=== PATIENT | female | born 1940 | race Caucasian/White ===

== ENCOUNTER → 2017-05-28 16:25 | Outpatient (CLI) | payer MEDICARE, OTHER, SELFPAY ==
[2017-05-28 17:32] LABS: Absolute Lymphocyte Count 2.06 X10^3/ul (0.83-4.51); Absolute Neutrophil Count 4.9 X10^3/uL (2.0-7.7); Basophil# 0.04 X10^3/uL; Basophil% 0.5 % (0-1); Eosinophil# 0.17 X10^3/uL; Eosinophils% 2.2 % (0-5); Hematocrit 26.4 % (37-47); Hemoglobin 8.1 g/dl (12.0-15.0); Lymphocyte # 2.06 X10^3/ul (4.0); Lymphocyte % 26.4 % (19-41); Mean Corp Hgb Conc 30.7 g/gl (32-36); Mean Corpuscular Hgb 24.4 pg (27.0-32.0); Mean Corpuscular Volume 79.5 fL (81-99); Mean Platelet Vol. 10.4 fl (6.2-12.0); Monocyte# 0.61 X10^3/uL; Monocyte% 7.8 % (0-10); Neutrophil # 4.88 X10^3/uL (2.7-7.7); Neutrophil % 62.6 % (47-70); Platelet Count 438 K/mm3 (150-450); RBC Distribution Width CV 15.1 % (11.6-14.6); RBC Distribution Width SD 42.2 fl (35.1-43.9); Red Blood Count 3.32 M/mm3 (4.2-5.4); White Blood Count 7.8 K/mm3 (4.4-11.0)
[2017-05-28 17:39] LABS: POSITIVE COUNT NO; POSITIVE DIFFERENTIAL NO; POSITIVE MORPHOLOGY NO
[2017-05-28 18:23] LABS: Albumin, Serum 3.9 g/dL (3.2-5.0); BUN 10 mg/dL (7-18); BUN/Creat Ratio 13.3 RATIO (10-20); Creatinine, Serum 0.75 mg/dL (0.55-1.02); EST Glomerular Filtration Rate 80 mL/min (>60); Est Glom Filt Rate - Afr Amer 97 mL/min (>60); Glucose 117 mg/dL (74-106)
[2017-05-28 18:24] LABS: AST(SGOT) 16 U/L (15-37); Alanine Aminotransfer ALT/SGPT 25 U/L (13-56); Alkaline Phosphatase 81 U/L (45-117); Anion Gap 12 (5-15); Calcium,Total 8.8 mg/dL (8.5-10.1); Chloride 103 mmol/L (98-107); Globulin 4.1 g/dL (2.2-4.2); Sodium Level 137 mmol/L (136-145); Thyroid Stim Hormone (TSH) 1.98 uIU/mL (0.358-3.74)
[2017-05-28 21:16] LABS: Vitamin D,25 Hydroxy 8.6 ng/mL (19.95-100.01)
== END ==
PROVIDERS: Visit Provider Family Medicine Geriatric Medicine
DX: I10 Essential (primary) hypertension (principal); E55.9 Vitamin D deficiency, unspecified
CPT/HCPCS: 36415; 80053; 82306; 84443; 85025

== ENCOUNTER 2017-06-06 11:27 | Observation (INO) | payer MEDICARE, OTHER, SELFPAY ==
[2017-06-06] VITALS (16 sets, daily range): BP systolic 127–163; BP diastolic 68–85; PULSE 72–86; RESP 16–18; TEMP 36.7–36.9; O2SAT 97–100; BMI 27.2
--- NOTE | 2017-06-06 11:50 | EKG12_ITS ---
Test Reason : CHEST PAIN/SOB Blood Pressure : / mmHG Vent. Rate : 077 BPM Atrial Rate : 077 BPM P-R Int : 156 ms QRS Dur : 088 ms QT Int : 410 ms P-R-T Axes : -01 019 040 degrees QTc Int : 463 ms Normal sinus rhythm Normal ECG Confirmed by RORY ALVARENGA, DEMETRA ([id number]), editorial director SIMI RIOS ([id number] on 06/08/2017 1:14:57 PM Referred By: DARRYL Confirmed By:DEMETRA VALADEZ MD
--- NOTE | 2017-06-06 12:00 | RAD_ITS ---
STUDY: X-RAY CHEST REASON FOR EXAM: Female, 76 years old. Chest pain and shortness breath. TECHNIQUE: Single AP portable view of the chest. COMPARISON: 01/11/2017. FINDINGS: The lungs are hyperexpanded. There are coarsened interstitial markings suggestive of mild chronic fibrosis. Elevated left hemidiaphragm related to scarring, stable. No gross focal infiltrates. No gross effusions. Normal size heart. Normal mediastinum and lourdes. Normal visualized pulmonary arteries. Normal visualized aortic arch and descending thoracic aorta. Large hiatal hernia. Normal visualized thoracic spine. Normal visualized ribs, clavicles, and shoulders. There is no demonstrated abnormality of the visualized soft tissue structures of the upper abdomen. RAD/Chest 1 View (Portable) IMPRESSION: No change and no acute chest disease. Electronically Signed: Rhys Riley MD at 12:41 EST , Service support ,
[2017-06-06 12:19] LABS: Absolute Neutrophil Count 7.5 X10^3/uL (2.0-7.7); Basophil# 0.06 X10^3/uL; Basophil% 0.6 % (0-1); Eosinophil# 0.06 X10^3/uL; Eosinophils% 0.6 % (0-5); Hematocrit 25.3 % (37-47); Hemoglobin 7.7 g/dl (12.0-15.0); Lymphocyte % 15.9 % (19-41); Mean Corp Hgb Conc 30.4 g/gl (32-36); Mean Corpuscular Hgb 23.4 pg (27.0-32.0); Mean Corpuscular Volume 76.9 fL (81-99); Mean Platelet Vol. 9.1 fl (6.2-12.0); Monocyte# 0.76 X10^3/uL; Monocyte% 7.6 % (0-10); Neutrophil # 7.54 X10^3/uL (2.7-7.7); Neutrophil % 74.9 % (47-70); Platelet Count 630 K/mm3 (150-450); RBC Distribution Width CV 16.1 % (11.6-14.6); RBC Distribution Width SD 43.4 fl (35.1-43.9); Red Blood Count 3.29 M/mm3 (4.2-5.4); White Blood Count 10.1 K/mm3 (4.4-11.0)
[2017-06-06 12:21] LABS: POSITIVE COUNT NO; POSITIVE DIFFERENTIAL NO; POSITIVE MORPHOLOGY NO
[2017-06-06 12:35] LABS: Anion Gap 13 (5-15); BUN 22 mg/dL (7-18); BUN/Creat Ratio 29.5 RATIO (10-20); Calcium,Total 8.9 mg/dL (8.5-10.1); Chloride 102 mmol/L (98-107); Creatinine, Serum 0.75 mg/dL (0.55-1.02); EST Glomerular Filtration Rate 81 mL/min (>60); Est Glom Filt Rate - Afr Amer 97 mL/min (>60); Estimated Creatinine Clearance 37.24 ml/min; Glucose 143 mg/dL (74-106); Potassium 3.5 mmol/L (3.5-5.1); Sodium Level 138 mmol/L (136-145)
[2017-06-06] MEDS: 0.9% Normal Saline 1,000 ML 150 ML IV (12:35)
[2017-06-06] MEDS: oxyCODONE 5 MG Tablet PO ×2 (12:53→20:48)
--- NOTE | 2017-06-06 16:04 | ED.VISSUMM ---
- ER Visit Summary Date of Service: 06/06/17 Chief Complaint: Chest pain and shortness of breath History of Present Illness: The patient is a 76 F reports dyspnea on exertion for the past 4 days. She feels lightheaded and weak when she ambulates. Last evening she developed intermittent back, chest, and left arm pain. She does have a history of chronic lower back pain. Patient was given aspirin and nitroglycerin with EMS which did improve her symptoms. Patient also reports a history of recurrent anemia. She has had multiple scopes with no definitive source of blood loss. She has required intermittent blood transfusions. She states she will often get dyspnea on exertion when she is anemic. Physical Examination: Vital signs are unremarkable. Patient is in no acute distress and is nontoxic appearing. Head and neck examination is normal other than pallor. Heart is regular rate and rhythm. Palpable pulses are noted throughout. Lungs are clear with good air movement throughout. Abdomen is soft and nontender. Bowel sounds are noted. Test Results: EKG is sinus at 77 with no sign of acute ischemia. Portal chest x-ray shows no acute chest disease. CBC was normal white count with a hemoglobin of 7.7. Platelet count is elevated at 630,000. Chemistry studies reveal BUN 22. Troponin is less than 0.02. Emergency Department Course and Treatment: Patient reported improvement of her symptoms with nitro and aspirin prior to arrival. She did request her home dose of oxycodone for her low back pain. I spoke with Dr. Angulo, on-call for the patient's health information assistant. With no known definitive heart disease or lung problems, he stated that her transfusion threshold would likely be a hemoglobin of 7. Patient reports her last stress test was 3 years ago at [place]. At this time she will be discussed with hospitalist for admission. Treatment Plan: [] Disposition: Admit Impression: 1. Chest pain 2. Anemia 3. Dyspnea on exertion This note was generated with Picocent dictation software. It may contain incorrect words, spelling, and punctuation that were not noted in review of the chart prior to signing ED Disposition - Plan for ED Patient: Chief Complaint: Chest Pain Referrals: Dinh Hobson Chi, MD [Primary Care Provider] -
--- NOTE | 2017-06-06 16:07 | ED.DCSUM_ITS ---
- ER Visit Summary Date of Service: 06/06/17 Chief Complaint: Chest pain and shortness of breath History of Present Illness: The patient is a 76 F reports dyspnea on exertion for the past 4 days. She feels lightheaded and weak when she ambulates. Last evening she developed intermittent back, chest, and left arm pain. She does have a history of chronic lower back pain. Patient was given aspirin and nitroglycerin with EMS which did improve her symptoms. Patient also reports a history of recurrent anemia. She has had multiple scopes with no definitive source of blood loss. She has required intermittent blood transfusions. She states she will often get dyspnea on exertion when she is anemic. Physical Examination: Vital signs are unremarkable. Patient is in no acute distress and is nontoxic appearing. Head and neck examination is normal other than pallor. Heart is regular rate and rhythm. Palpable pulses are noted throughout. Lungs are clear with good air movement throughout. Abdomen is soft and nontender. Bowel sounds are noted. Test Results: EKG is sinus at 77 with no sign of acute ischemia. Portal chest x -ray shows no acute chest disease. CBC was normal white count with a hemoglobin of 7.7. Platelet count is elevated at 630,000. Chemistry studies reveal BUN 22. Troponin is less than 0.02. Emergency Department Course and Treatment: Patient reported improvement of her symptoms with nitro and aspirin prior to arrival. She did request her home dose of oxycodone for her low back pain. I spoke with Dr. Angulo, on-call for the patient's secret service agent. With no known definitive heart disease or lung problems, he stated that her transfusion threshold would likely be a hemoglobin of 7. Patient reports her last stress test was 3 years ago at [place]. At this time she will be discussed with hospitalist for admission. Treatment Plan: [] Disposition: Admit Impression: 1. Chest pain 2. Anemia 3. Dyspnea on exertion This note was generated with XRONet dictation software. It may contain incorrect words, spelling, and punctuation that were not noted in review of the chart prior to signing ED Disposition - Plan for ED Patient: Chief Complaint: Chest Pain Referrals: Dinh Hobson Chi, MD [Primary Care Provider] -
[2017-06-06] MEDS: 0.9% NaCl Peripheral Flush Adult/Peds IV (20:49)
[2017-06-06] MEDS: Heparin Injection 5,000 UNITS/ML Syringe 5000 UNITS SC (21:26)
[2017-06-06] MEDS: Metoprolol Tartrate 50 MG Tablet PO (21:27)
--- NOTE | 2017-06-06 21:29 | HP.PCM_ITS ---
Problem List (1) Chest pain Status: Acute Qualifiers: Chest pain type: precordial pain Qualified Code(s): R07.2 - Precordial pain (2) SOBOE (shortness of breath on exertion) Status: Acute History of Present Illness Date of Admission: 06/06/17 Chief Complaint: Chest pain, dyspnea on exertion The patient is a 76 year old F seen in the emergency room at [facility] with chief complaint of dyspnea on exertion since last Sunday and episodic chest pain, left arm pain, and mid back pain ?2 days. Patient states she has pain down her left arm which she describes as an ache, it lasted for several minutes and went away, nothing precipitated the discomfort, she also had brief periods of chest pain which was located in the precordial area and was described as a sharp brief pain that lasted approximately 20 seconds. Finally, patient complained of a burning sensation in her mid back area which lasted only for a few seconds. Patient states that she has had 3-4 episodes of the chest discomfort since yesterday. Nothing seems to precipitate the chest back or arm discomfort and nothing makes it better. Patient is seen Dr. Sophia mckeon last year for hypertension and was due to follow up with him this year, she has no history of coronary artery disease. Evaluation in the emergency room included an EKG which showed no evidence of ischemic changes, labs were remarkable for hemoglobin of 7.7, platelet count was elevated at 630, BUN was elevated at 22, the patient's chest x-ray showed no acute disease. Patient has a history of chronic anemia, she has been worked up with endoscopy including an EGD and colonoscopy without a definite etiology of the anemia. She has to undergo intermittent blood transfusions, the last one she states was 5-6 months ago. Patient will be placed in observation status on MedSurg, cardiac enzymes will be cycled, patient will have an echocardiogram performed, she will be given 3 units of packed red blood cells-cardiology feels that in order for the patient to have a stress test her hemoglobin should be above 10. Past Medical History Past Medical History (Chronic Problems): Chronic Problems Presence of IVC filter (Chronic) h/o DVT/PE History of GI bleed (Chronic) Anxiety (Chronic) GERD (gastroesophageal reflux disease) (Chronic) Hypertension (Chronic) Hyperglycemia (Chronic) no hx of DM Chronic back pain (Chronic) Hiatal hernia (Chronic) Polysubstance dependence (Chronic) Insomnia (Chronic) DVT (deep venous thrombosis) (Chronic) Pulmonary embolism (Chronic) Iron deficiency anemia (Chronic) Allergies sumatriptan [From Imitrex] Allergy (Verified 06/06/17 11:33) Chest tightness sumatriptan succinate [From Imitrex] Allergy (Verified 06/06/17 11:33) Chest tightness Home Medications: Ambulatory Orders Medication Instructions Recorded Aspirin [Aspirin, Baby] 81 mg PO DAILY@0800 06/12/16 Acetaminophen [Tylenol Tablet] 650 mg PO Q4H PRN PRN #0 tablet 06/28/16 Duloxetine HCl 60 mg PO BREAKFAST #30 01/12/17 Lorazepam [Ativan] 2 mg PO QHS #14 01/12/17 NIFEdipine [Procardia Xl] 30 mg PO DAILY #15 01/12/17 Metoprolol Tartrate [Lopressor 50 mg PO BID 06/06/17 (beta julieth)] Oxycodone HCl/Acetaminophen 1 tablet PO PRN PRN 06/06/17 [Percocet 5-325] Polyethylene Glycol 3350 [Miralax] 17 gm PO PRN PRN 06/06/17 Surgical History: appendectomy, cholecystectomy, - - back surgery w/ hardware, IVC filter placement. 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 BRIEFCASE SEWER History: No pertinent BRIEFCASE SEWER history Lives: Spouse/ Significant Other Smoking Status: Never smoker Tobacco Use: Non-smoker Alcohol: None Drugs: None - *Family History Maternal History Items: COPD, - - bladder cancer Paternal History Items: Stroke - at 92 Review of Systems Constitutional: Denies: Anorexia, Chills, Fever, Night Sweats, Malaise, Weakness , Weight Change, Fatigue Eyes: Denies: Blurred vision, Cataracts, Conjunctivae Inflammation, Double vision, Drainage HEENT: Denies: Difficulty Hearing, Difficulty Swallowing, Dysphasia, Ear Pain, Eye Pain, Head Aches, Hearing Changes, Nasal bleeding, Nasal Congestion, Post Nasal Drip Cardiovascular: Reports: Chest Pain. Denies: Claudication, Chest Pressure, Chest Tightness, Edema, Heaviness, Orthopnea, Palpitations, Paroxysmal Noc. Dyspnea, Syncope Respiratory: Reports: Shortness of Breath, Shortness of breath upon exertion. Denies: Cough, Hemoptysis, Pleuritic Pain, Shortness of breath at rest, Sputum production, Wheezing Gastrointestinal: Denies: Abdominal Pain, Constipation, Diarrhea, Hematemesis, Hematochezia, Nausea, Melena, Vomiting Genitourinary: Denies: Dysuria, Frequency, Hematuria, Hesitancy, Incontinence, Nocturia, Urgency Gynecological: Denies: Breast symptoms Musculoskeletal: Reports: Arm Pain - Left arm pain as noted in chief complaint. Denies: Foot Pain, Hand Pain, Joint Pain, Joint stiffness, Joint swelling, Joint Tenderness, Leg Pain Skin: Denies: Dryness, Jaundice, Pruritis, Rash Neurological: Denies: Balance problems, Blurred vision, Double vision, Change in Speech, Slurred speech, Difficulty swallowing, Focal weakness, Headaches, Incoordination, Numbness, Tingling Psychiatric: Reports: Anxiety, Depression. Denies: Homicidal Ideations, Suicidal Ideations Endocrine: Denies: Change in Body Habitus, Heat/ Cold Intolerance, Polydipsia, Polyuria Hematologic/ Lymphatic: Reports: Anemia, Hx of blood transfusion. Denies: Adenopathy, Easy Bruising, Easy Bleeding, Petechiae, Purpura VTE Information - Inpt Only VTE Present on Admission: No VTE Mechan Device Prophylaxis: None VTE Pharm Prophylaxis ordered?: Yes Patient Problems: Active and Suspected Problems Chest pain (Acute) - Physical Exam General: Alert, Oriented x3, Cooperative, No apparent distress, Well developed, Well nourished HEENT: Atraumatic, PERRLA, EOMI, Normocephalic Oral: Moist Mucosa Neck: Supple, No JVD, Negative Carotid Bruits, No Nuchal Rigidity, Trachea Midline, Thyroid Normal Size and Texture Lungs: Clear to auscultation, Normal air movement, No rhonchi, No wheeze, No rales Cardiovascular: Regular rate, Regular Rhythm, Normal S1, Normal S2, No murmurs, No Ectopic Activity, PMI Normal, No rub noted, No Gallop Abdomen: Bowel Sounds Present, Soft, Non Tender, Non-Distended, No hernias noted Extremities: No clubbing, No cyanosis, No edema, Capillary Refill Less than 3 Seconds Skin: No rashes, No breakdown Musculoskeletal: No Tenderness to Palpation of Joints or Extremities Neurological: Cranial nerves II-XII grossly intact, Neuro grossly intact, Muscle tone normal, Sensory exam intact to light touch and pain, Coordination normal Psych/Mental Status: Normal Affect, Appropriate, Alert and oriented to time, place, person, mood and affect Vital Signs Temp Pulse Resp BP Pulse Ox 98.2 F 78 16 154/74 H 98 06/06/17 21:08 06/06/17 21:08 06/06/17 21:08 06/06/17 21:08 06/06/17 21:08 Oxygen Delivery Method Room Air Weight: 67.6 kg Body Mass Index (BMI) 27.2 Intake and Output for Last 24 Hours 06/04/17 06/05/17 06/06/17 23:59 23:59 23:59 Intake Total 0 / 0 Balance 0 / 0 Laboratory Tests Past 24 Hrs 06/06/17 06/06/17 06/06/17 17:15 18:03 18:03 Troponin I < 0.02 Blood Type B POSITIVE Antibody Screen NEGATIVE Crossmatch See Detail See Detail 06/06/17 20:32 Troponin I Pending Blood Type Antibody Screen Crossmatch Assessment/Plan Active and Suspected Problems Chest pain (Acute) #1 chest pain-etiology unclear, patient will be placed in observation status on PCU, cardiac enzymes will be cycled, patient will have an echocardiogram performed, if enzymes are negative and the patient's hemoglobin is above 10 tomorrow morning, patient will undergo a resting pharmacological nuclear stress test. I do not feel cardiology needs to see patient at this time #2 dyspnea on exertion-possibly secondary to anemia-patient has a past history in her medical record of dyspnea on exertion #3 hypertension #4 anxiety disorder #5 depression #6 chronic anemia probably from undetected AVM-patient will be given 3 units of packed red blood cells and CBC will be rechecked, I do not feel diagnostic testing is necessary Code Visit OBSV E&M: 47817 Initial observation care L3
[2017-06-06] MEDS: LORazepam 1 MG Tablet 2 MG PO (21:31)
[2017-06-07] VITALS (17 sets, daily range): BP systolic 150–169; BP diastolic 73–100; PULSE 57–80; RESP 14–16; TEMP 36.7–37.1; O2SAT 97–100
--- NOTE | 2017-06-07 00:59 | NURSING ---
Addendum entered by Elena Fraser 06/07/17 01:26: Started transfusion of 2 out of 3 PRCs on 06/07/17 at 0050, unable to edit time of initial vital signs Original Note: Started transfusion of 2 out of 3 PRBCs aon 06/07/17 at 0048, unable to edit time of initial vital signs
[2017-06-07] MEDS: Acetaminophen 325 MG Tablet 650 MG PO (02:10)
[2017-06-07 04:46] LABS: Anion Gap 11 (5-15); BUN 26 mg/dL (7-18); BUN/Creat Ratio 44.1 RATIO (10-20); Calcium,Total 8.5 mg/dL (8.5-10.1); Chloride 105 mmol/L (98-107); Creatinine, Serum 0.59 mg/dL (0.55-1.02); EST Glomerular Filtration Rate 106 mL/min (>60); Est Glom Filt Rate - Afr Amer 128 mL/min (>60); Estimated Creatinine Clearance 39.04 ml/min; Glucose 100 mg/dL (74-106); Potassium 3.8 mmol/L (3.5-5.1); Sodium Level 140 mmol/L (136-145)
--- NOTE | 2017-06-07 05:55 | ECHOD_ITS ---
Reason For Study: Chest pain Procedure This was a 2D Doppler, Color Flow transthoracic echocardiogram. The exam was of adequate technical quality. Exam performed portable in patient room. Left Ventricle Normal LV size. Left ventricular systolic function is normal. The estimated ejection fraction is 60 %. Transmitral diastolic flow velocities suggest moderate (stage 2) diastolic dysfunction (pseudonormal pattern). No regional wall motion abnormalities noted. Right Ventricle Normal RV size. Normal systolic function. Atria The left atrium is moderately enlarged. Normal right atrium. No doppler evidence for ASD. Mitral Valve There is no mitral annular calcification. Normal mitral valve. Mild (1+) mitral valve insufficiency. Tricuspid Valve Normal tricuspid valve. Trivial tricuspid valve insufficiency. Right ventricular systolic pressure estimated to be 35 mmHg. Aortic Valve Trisinus/trileaflet aortic valve. Mild focal aortic valve thickening. Trivial aortic valve insufficiency. Pulmonic Valve The pulmonic valve is not well visualized. Trivial pulmonic valve insufficiency. Great Vessels Normal sized aortic root. Pericardium/Pleural No pericardial effusion. MMode/2D Measurements & Calculations LVIDd: 4.1 cm IVSd: 1.3 cm Ao root diam: 2.5 cm LVIDs: 2.1 cm LVPWd: 0.98 cm LA dimension: 3.1 cm RVDd: 2.8 cm FS: 48.6 % LAV(MOD-bp): 65.8 ml LA A4 area: 20.7 cm2 RA A4 area: 12.8 cm2 LAV(MOD-bp) Indexed: 39.1 ml/m2 LAV(MOD-sp2): 64.0 ml LAV(MOD-sp4): 61.7 ml Doppler Measurements & Calculations MV E max quan: 72.9 cm/sec Lat Peak E' Quan: 8.5 cm/sec Med Peak E' Quan: 5.7 cm/sec MV A max quan: 75.9 cm/sec E/E' lat: 8.6 E/E' med: 12.8 MV E/A: 0.96 Ao V2 max: 158.8 cm/sec LV V1 max: 98.7 cm/sec PA V2 max: 61.9 cm/sec Ao max P.1 mmHg LV V1 max P.9 mmHg TR max quan: 280.5 cm/sec TR max P.5 mmHg Interpretation Summary Left ventricular systolic function is normal. The estimated ejection fraction is 60 %. The left atrium is moderately enlarged. Mild (1+) mitral valve insufficiency. Trivial tricuspid valve insufficiency. Mild focal aortic valve thickening. Trivial aortic valve insufficiency. Trivial pulmonic valve insufficiency. Right ventricular systolic pressure estimated to be 35 mmHg. Transmitral diastolic flow velocities suggest diastolic dysfunction. Ordering Physician: Everardo Grigsby Referring Physician: Dinh Hobson Chi Performed By: Alissa Quiroga RDCS
--- NOTE | 2017-06-07 05:55 | EKG12_ITS ---
Test Reason : AM EKG Blood Pressure : / mmHG Vent. Rate : 061 BPM Atrial Rate : 061 BPM P-R Int : 168 ms QRS Dur : 090 ms QT Int : 432 ms P-R-T Axes : 035 023 034 degrees QTc Int : 434 ms Normal sinus rhythm Low voltage QRS (limb leads) Confirmed by RORY ALVARENGA, DEMETRA ([id number]), editor & co founder SIMI RIOS ([id number] on 06/08/2017 1:42:42 PM Referred By: MADELEINE Confirmed By:DEMETRA VALADEZ MD
[2017-06-07] MEDS: Aspirin 81 MG TAB.CHEW PO (06:01)
[2017-06-07 07:45] LABS: International Normalized Ratio 1.1; Prothrombin Time (Protime)PT. 13.6 SECONDS (11.7-14.9)
[2017-06-07 07:46] LABS: Hematocrit 36.7 % (37-47); Hemoglobin 11.5 g/dl (12.0-15.0); Mean Corp Hgb Conc 31.3 g/gl (32-36); Mean Corpuscular Volume 79.8 fL (81-99); Mean Platelet Vol. 9.1 fl (6.2-12.0); Platelet Count 287 K/mm3 (150-450); RBC Distribution Width CV 17.4 % (11.6-14.6); RBC Distribution Width SD 50.6 fl (35.1-43.9); Scan Indicated on CBC? Y/N NO; White Blood Count 6.9 K/mm3 (4.4-11.0)
[2017-06-07] MEDS: Metoprolol Tartrate 50 MG Tablet PO (10:04)
[2017-06-07] MEDS: DULoxetine Hcl 60 MG Capsule PO (10:04)
[2017-06-07] MEDS: oxyCODONE 5 MG Tablet PO (10:05)
[2017-06-07] MEDS: NIFEdipine 30 MG Tablet PO (10:11)
--- NOTE | 2017-06-07 10:26 | STRESSREP ---
Stress Test Report Date: 06/07/2017 Procedure: Pharmacologic stress nuclear imaging study Indications: Chest pain; shortness of breath; anemia Consent: The patient Procedure: The patient underwent pharmacologic (Regadenoson) evaluation with a peak heart rate of 90 per minute and a peak blood pressure of 152/98 mmHg. The baseline ECG demonstrated sinus rhythm. The peak pharmacologic ECG demonstrated no obvious ECG changes. [There were no cardiac dysrhythmias pretest, during pharmacologic infusion, or recovery]. [There was no complaint of chest discomfort during pharmacologic infusion or recovery]. The examination was discontinued secondary to completion of protocol. Impression: 1. Pharmacologic (Regadenoson) evaluation 2. Peak pharmacologic ECG with with no obvious ECG changes. 3. No cardiac dysrhythmias pretest, during pharmacologic infusion, or recovery 4. Nuclear images pending Myocardial perfusion imaging study: Technique: The patient was injected with 11.2 millicuries of technetium 99m Cardiolite and subsequently rest SPECT Cardiolite nuclear imaging was obtained in the horizontal long, vertical long, and short axis views. The patient underwent pharmacologic (Regadenoson) evaluation with a peak heart rate of 90 per minute and a peak blood pressure of 52/98 mmHg. the patient was injected with 33.7 millicuries of technetium 99m Cardiolite and subsequently stress SPECT Cardiolite nuclear imaging was obtained in the horizontal long, vertical long, and short axis views. A gated Cardiolite study at peak stress was obtained. Interpretation: Rest and stress SPECT Cardiolite nuclear imaging status post realignment, normalization, and attenuation correction demonstrate the appearance of relative uniform tracer uptake and myocardial perfusion appearing within normal limits. [There is end systolic thickening and brightening]. [The gated Cardiolite study demonstrates myocardial thickening and inward wall motion]. The reported LVEF is 77%. Impression: 1. Rest and stress SPECT Cardiolite nuclear imaging demonstrate the appearance of relative uniform tracer uptake and myocardial perfusion appearing within normal limits 2. The gated Cardiolite study demonstrates an LVEF of 77% This note was generated with EyeVerifyation software. It may contain incorrect words, spelling, and punctuation that were not noted in checking the note before signing.
--- NOTE | 2017-06-07 13:58 | PN_ITS ---
Patient Problems: Active and Suspected Problems Chest pain (Acute) Subjective: Still chest pain. Patient states that the chest pain in the left ones were rates in upper left shoulder. Patient states that her chest pain is worse with deep respirations and cough. Patient denies any recent trauma that preceded this. Vitals/I&O's: Vital Signs Temp Pulse Resp BP Pulse Ox 37.0 C 57 L 16 165/100 H 100 06/07/17 11:03 06/07/17 11:33 06/07/17 11:03 06/07/17 11:03 06/07/17 11:03 Oxygen Delivery Method Room Air Weight: 67.6 kg Body Mass Index (BMI) 27.2 Intake and Output for Last 24 Hours 06/05/17 06/06/17 06/07/17 23:59 23:59 23:59 Intake Total 540 / 540 2104 210 Balance 540 / 540 2104 General: Alert, Cooperative, No apparent distress HEENT: Atraumatic, Normocephalic Musculoskeletal: - - Reproducible left anterior chest wall tenderness with very light palpation. Laboratory Results 06/06/17 17:15: Troponin I < 0.02 06/06/17 18:03: Blood Type B POSITIVE, Antibody Screen NEGATIVE, Crossmatch See Detail 06/06/17 18:03: Crossmatch See Detail 06/06/17 20:32: Troponin I < 0.02 06/07/17 03:28: Troponin I < 0.02 06/07/17 03:28: Sodium 140, Potassium 3.8, Chloride 105, Carbon Dioxide 24.0, Anion Gap 11, BUN 26 H, Creatinine 0.59, Estim Creat Clear Calc 39.04, Est GFR ( MDRD) Af Amer 128, Est GFR (MDRD) Non-Af 106, BUN/Creatinine Ratio 44.1 H, Glucose 100, Calcium 8.5 06/07/17 07:15: WBC 6.9, RBC 4.60, Hgb 11.5 L, Hct 36.7 L, MCV 79.8 L, MCH 25.0 L, MCHC 31.3 L, RDW 17.4 H, RDW Differential 50.6 H, Plt Count 287, MPV 9.1 06/07/17 07:15: PT 13.6, INR 1.1, APTT 29.0 Current Medications Acetaminophen (Tylenol) 650 mg PO Q4H PRN PRN PRN Reason: PAIN Last Admin: 06/07/17 02:10 Dose: 650 mg Acetaminophen (Tylenol) 650 mg PO Q6H PRN PRN PRN Reason: Mild Pain (1-3)/Temp > 100.7 F Aspirin (Aspirin, Baby) 81 mg PO DAILY@0800 [facility] Last Admin: 06/07/17 06:01 Dose: 81 mg Duloxetine HCl (Cymbalta) 60 mg PO BREAKFAST [facility] Last Admin: 06/07/17 10:04 Dose: 60 mg Heparin Sodium (Porcine) () 5,000 units SC Q8 [facility] Last Admin: 06/06/17 23:56 Dose: Not Given Lorazepam (Ativan) 2 mg PO QHS [facility] Last Admin: 06/06/17 21:31 Dose: 2 mg Metoprolol Tartrate (Lopressor (Beta Ivelisse)) 50 mg PO BID [facility] Last Admin: 06/07/17 10:04 Dose: 50 mg Nifedipine (Procardia Xl) 30 mg PO DAILY [facility] Last Admin: 06/07/17 10:11 Dose: 30 mg Oxycodone HCl (Oxyir) 5 - 10 mg PO Q4H PRN PRN PRN Reason: MOD-SEVERE PAIN (4-10/10) Last Admin: 06/07/17 10:05 Dose: 10 mg Sodium Chloride () 5 - 30 ml IV UD PRN PRN Reason: SALINE FLUSH Last Admin: 06/06/17 20:49 Dose: 10 ml Assessment/Plan Active and Suspected Problems Chest pain (Acute) 1. Chest pain Stress test was negative. Therefore noncardiac. Likely musculoskeletal. Patient advised to use [id number] analgesics to assist with this. Discharge home.
--- NOTE | 2017-06-07 14:00 | PCM.DC ---
- Discharge Diagnoses Current Active Problems: Current Active and Chronic Problems Chest pain (Acute) You will use the following diet at home:: No restrictions Your food should be the consistency of: Regular Your liquids should be the consistency of: Regular/Thin Discharge Activity: Return to Normal Activity Call your doctor if you observe: Fever of 101 or Higher Instructions: ED Chest Pain NonCardiac Allergies/Adverse Reactions: Allergies sumatriptan [From Imitrex] Allergy (Verified 06/06/17 11:33) Chest tightness sumatriptan succinate [From Imitrex] Allergy (Verified 06/06/17 11:33) Chest tightness Medications to take at Discharge Aspirin [Aspirin, Baby] 81 mg PO DAILY@0800 06/12/16 Acetaminophen [Tylenol Tablet] 650 mg PO Q4H PRN PRN #0 tablet 06/28/16 Duloxetine HCl 60 mg PO BREAKFAST #30 01/12/17 Lorazepam [Ativan] 2 mg PO QHS #14 01/12/17 NIFEdipine [Procardia Xl] 30 mg PO DAILY #15 01/12/17 Metoprolol Tartrate [Lopressor (beta julieth)] 50 mg PO BID 06/06/17 Oxycodone HCl/Acetaminophen [Percocet 5-325] 1 tablet PO PRN PRN 06/06/17 Polyethylene Glycol 3350 [Miralax] 17 gm PO PRN PRN 06/06/17 Acetaminophen [Tylenol Tablet] 500 mg PO Q6H PRN PRN tablet 06/07/17 Primary Care Physician: Dinh Hobson Chi, MD [Primary Care Provider] - Within 2 Weeks Proposed Discharge Date: 06/07/17
--- NOTE | 2017-06-07 14:03 | DS.PCM_ITS ---
Discharge Date and Diagnosis - Problem List Patient Problems: Active and Suspected Problems Chest pain (Acute) Date of Admission: 06/06/17 Date of Discharge: 06/07/17 - Primary Discharge Diagnosis Active and Suspected Problems Chest pain (Acute) - Secondary Discharge Diagnosis Chronic Problems Presence of IVC filter (Chronic) h/o DVT/PE History of GI bleed (Chronic) Anxiety (Chronic) GERD (gastroesophageal reflux disease) (Chronic) Hypertension (Chronic) Hyperglycemia (Chronic) no hx of DM Chronic back pain (Chronic) Hiatal hernia (Chronic) Polysubstance dependence (Chronic) Insomnia (Chronic) DVT (deep venous thrombosis) (Chronic) Pulmonary embolism (Chronic) Iron deficiency anemia (Chronic) Hospital Course and Treatment Imaging Results: 06/07/17 05:55 Echo Complete [ECHO] AM (NON MEDS) Nuclear Stress Test - Chemical [NM] AM (NON MEDS) Clinical Impression(s) from Imaging Studies Chest X-Ray 06/06/17 12:00 IMPRESSION: No change and no acute chest disease. Electronically Signed: Rhys Riley MD at 12:41 EST , Service support , Operations: None Procedures: Stress test Summary of Care Provided: The patient is a 76 year old F Rusty with chest pain. Chest pain was migratory but also reproducible. Stress test was negative. [place] to be muscular skeletal chest pain and patient recommended Tylenol and just analgesics. No further cardiac workup is necessary. Patient discharged home. [] Discharge Diet: No Restrictions Discharge Activity: Return to Normal Activity Call your doctor if you observe: Fever of 101 or Higher Home Medications: Medications to take at Discharge Aspirin [Aspirin, Baby] 81 mg PO DAILY@0800 06/12/16 Acetaminophen [Tylenol Tablet] 650 mg PO Q4H PRN PRN #0 tablet 06/28/16 Duloxetine HCl 60 mg PO BREAKFAST #30 01/12/17 Lorazepam [Ativan] 2 mg PO QHS #14 01/12/17 NIFEdipine [Procardia Xl] 30 mg PO DAILY #15 01/12/17 Metoprolol Tartrate [Lopressor (beta julieth)] 50 mg PO BID 06/06/17 Oxycodone HCl/Acetaminophen [Percocet 5-325] 1 tablet PO PRN PRN 06/06/17 Polyethylene Glycol 3350 [Miralax] 17 gm PO PRN PRN 06/06/17 Acetaminophen [Tylenol Tablet] 500 mg PO Q6H PRN PRN tablet 06/07/17 Primary Care Physician: Dinh Hobson Chi, MD [Primary Care Provider] - Within 2 Weeks Patient Instructions: ED Chest Pain NonCardiac Disposition: Home Minutes spent on discharge:: 25 Patient Condition:: Good Meaningful Use Info Meaningful Use Diagnoses (Choose all that apply): None applicable Code Visit OBSV E&M: 56828 Observation care discharge
== END 2017-06-07 17:20 | disposition home or self-care (01) ==
LOC: ED 12:13 → PCU 16:09
PROVIDERS: Admitting Provider Internal Medicine; Emergency Provider Emergency Medicine; Family Provider Family Medicine Geriatric Medicine; PCP Family Medicine Geriatric Medicine
DX: R07.2 Precordial pain (principal); R06.02 Shortness of breath; R06.09 Other forms of dyspnea; G89.29 Other chronic pain; M79.602 Pain in left arm; R20.8 Other disturbances of skin sensation; K21.9 Gastro-esophageal reflux disease without esophagitis; F41.9 Anxiety disorder, unspecified; I10 Essential (primary) hypertension; K44.9 Diaphragmatic hernia without obstruction or gangrene; D50.9 Iron deficiency anemia, unspecified; F19.20 Other psychoactive substance dependence, uncomplicated; M54.9 Dorsalgia, unspecified; F32.9 Major depressive disorder, single episode, unspecified; Z79.82 Long term (current) use of aspirin; Z79.899 Other long term (current) drug therapy; Z86.711 Personal history of pulmonary embolism; Z86.718 Personal history of other venous thrombosis and embolism; Z87.891 Personal history of nicotine dependence
CPT/HCPCS: 36415; 36430; 71045; 78452; 80048; 84484; 85025; 85027; 85610; 85730; 86850; 86900; 86920; 86922; 93005; 93017; 93306; 96360; 96361; 96372; 99218; 99285; A9500; P9016; A4216; G0378; J2785

== ENCOUNTER → 2017-07-02 17:30 | Outpatient (CLI) | payer MEDICARE, OTHER, SELFPAY ==
[2017-07-03 18:55] LABS: Bacteria 0 SEEN /hpf (None Seen); Mucous, Urine 0 SEEN /hpf (<or=2+); Red Blood Cells-Urine 0 SEEN /hpf (0-5); White Blood Cells 0 SEEN /hpf (0-5)
[2017-07-03 18:57] LABS: Color, Urine Yellow (Yellow); Glucose, Dipstick Normal (Normal); Ketone-Dipstick Negative (Negative); Leukocyte Esterase-Dipstick Negative /ul (Negative); Nitrite-Dipstick Negative (Negative); Occult Blood-Urine Negative /ul (Negative); Protein-Dipstick 15 mg/dl (Negative); Specific Gravity, Urine 1.015 (1.002-1.030); Urine Bilirubin Dipstick Negative (Negative); Urine Clarity Clear (Clear); Urine Urobilinogen Normal (Normal)
[2017-07-03 19:03] LABS: Hyaline Cast 10-25 SEEN /lpf (0-5); Squamous Epithelial Cells - UA 0-5 SEEN /hpf (5-10)
== END ==
PROVIDERS: Family Provider Family Medicine Geriatric Medicine; PCP Family Medicine Geriatric Medicine; Visit Provider Physician Assistant Surgical
DX: N39.0 Urinary tract infection, site not specified (principal); R41.0 Disorientation, unspecified
CPT/HCPCS: 81001; 87086

== ENCOUNTER 2017-08-09 09:49 | Observation (INO) | payer MEDICARE, OTHER, SELFPAY ==
[2017-08-09] VITALS (17 sets, daily range): BP systolic 141–193; BP diastolic 63–101; PULSE 66–96; RESP 16–31; TEMP 36.5–37.2; O2SAT 93–100; BMI 28.3; BMI 28.5
--- NOTE | 2017-08-09 10:02 | EKG12_ITS ---
Test Reason : CP SOB Blood Pressure : / mmHG Vent. Rate : 069 BPM Atrial Rate : 069 BPM P-R Int : 178 ms QRS Dur : 094 ms QT Int : 434 ms P-R-T Axes : 051 024 042 degrees QTc Int : 465 ms Normal sinus rhythm Normal ECG Confirmed by DANNY PINA [id number]), loan expeditor SIMI RIOS ([id number]) on 08/14/2017 2:46:36 PM Referred By: CHARLES Confirmed By:DANNY PINA
--- NOTE | 2017-08-09 10:06 | ED.VISSUMM ---
- ER Visit Summary Date of Service: 08/09/17 Chief Complaint: Shortness of breath History of Present Illness: The patient is a [address] Hobson. She reports she has shortness of breath began yesterday. It is mild at rest and severe with exertion. Is unchanged with lying flat. She reports she has had this multiple times in the past with anemia. States that they have never been able to find the source of her blood loss. She has had a colonoscopy and endoscopy in May [address] Campos. Patient denies any recent trauma. No nosebleeds. No melena or hematochezia. No hematuria. No vaginal bleeding. Review of systems: General: No fever, chills, cold sweats. Cardiovascular: No chest pain, palpitations. Respiratory: No cough. Gastrointestinal: No abdominal pain, nausea, vomiting, diarrhea, melena, or hematochezia. Genitourinary: No dysuria, frequency, hematuria. Skin: No rash. Neuro: No headache, numbness, weakness. Physical Examination: Vitals: Stable. Afebrile. General: Well-nourished and well-developed. Head: Normocephalic atraumatic. Neck: Supple, no lymphadenopathy. No JVD. Nontender. Cardiovascular: Regular rate and rhythm. No murmurs. Respiratory: No respiratory distress. Clear to auscultation bilaterally. Abdominal: Soft, nontender, nondistended, normal bowel sounds. No guarding, rebound, or peritoneal signs. Back: Nontender. Extremities: Nontender, no edema. Skin: Normal color, no rash. Neurologic: Alert and oriented ?3. Cranial nerves II through XII are intact. Normal strength and sensation. Psych: Normal affect. Test Results: EKG is sinus at 69 with no acute changes. CBC is remarkable for an H&H of 7.6 and 24.8, white count of 11.4 and segment neutrophils of 85. Chem-7 is more for glucose of 110 and calcium 8.4. Troponin is negative. Chest x-ray shows chronic changes. Emergency Department Course and Treatment: Patient was typed and crossed for 1 unit of packed red blood cells. She is resting comfortably on oxygen. Treatment Plan: The patient was discussed with Dr. Barron. She will be admitted to the hospital for further evaluation and treatment. Disposition: Admitted in stable condition. Impression: 1. Symptomatic anemia. This note was generated with [employer] dictation software. It may contain incorrect words, spelling, and punctuation that were not noted in review of the chart prior to signing ED Disposition - Plan for ED Patient: Chief Complaint: Shortness of Breath Referrals: Dinh Hobson Chi, MD [Primary Care Provider] -
--- NOTE | 2017-08-09 10:10 | ED.DCSUM_ITS ---
- ER Visit Summary Date of Service: 08/09/17 Chief Complaint: Shortness of breath History of Present Illness: The patient is a [address] Hobson. She reports she has shortness of breath began yesterday. It is mild at rest and severe with exertion. Is unchanged with lying flat. She reports she has had this multiple times in the past with anemia. States that they have never been able to find the source of her blood loss. She has had a colonoscopy and endoscopy in May [address] Campos. Patient denies any recent trauma. No nosebleeds. No melena or hematochezia. No hematuria. No vaginal bleeding. Review of systems: General: No fever, chills, cold sweats. Cardiovascular: No chest pain, palpitations. Respiratory: No cough. Gastrointestinal: No abdominal pain, nausea, vomiting, diarrhea, melena, or hematochezia. Genitourinary: No dysuria, frequency, hematuria. Skin: No rash. Neuro: No headache, numbness, weakness. Physical Examination: Vitals: Stable. Afebrile. General: Well-nourished and well-developed. Head: Normocephalic atraumatic. Neck: Supple, no lymphadenopathy. No JVD. Nontender. Cardiovascular: Regular rate and rhythm. No murmurs. Respiratory: No respiratory distress. Clear to auscultation bilaterally. Abdominal: Soft, nontender, nondistended, normal bowel sounds. No guarding, rebound, or peritoneal signs. Back: Nontender. Extremities: Nontender, no edema. Skin: Normal color, no rash. Neurologic: Alert and oriented ?3. Cranial nerves II through XII are intact. Normal strength and sensation. Psych: Normal affect. Test Results: EKG is sinus at 69 with no acute changes. CBC is remarkable for an H&H of 7.6 and 24.8, white count of 11.4 and segment neutrophils of 85. Chem -7 is more for glucose of 110 and calcium 8.4. Troponin is negative. Chest x- ray shows chronic changes. Emergency Department Course and Treatment: Patient was typed and crossed for 1 unit of packed red blood cells. She is resting comfortably on oxygen. Treatment Plan: The patient was discussed with Dr. Barron. She will be admitted to the hospital for further evaluation and treatment. Disposition: Admitted in stable condition. Impression: 1. Symptomatic anemia. This note was generated with [employer] dictation software. It may contain incorrect words, spelling, and punctuation that were not noted in review of the chart prior to signing ED Disposition - Plan for ED Patient: Chief Complaint: Shortness of Breath Referrals: Dinh Hobson Chi, MD [Primary Care Provider] -
[2017-08-09 10:13] LABS: Absolute Lymphocyte Count 0.85 X10^3/ul (0.83-4.51); Absolute Neutrophil Count 9.7 X10^3/uL (2.0-7.7); Basophil# 0.03 X10^3/uL; Basophil% 0.3 % (0-1); Eosinophil# 0.08 X10^3/uL; Eosinophils% 0.7 % (0-5); Hematocrit 24.8 % (37-47); Hemoglobin 7.6 g/dl (12.0-15.0); Lymphocyte # 0.85 X10^3/ul (4.0); Lymphocyte % 7.5 % (19-41); Mean Corp Hgb Conc 30.6 g/gl (32-36); Mean Corpuscular Hgb 24.4 pg (27.0-32.0); Mean Corpuscular Volume 79.5 fL (81-99); Mean Platelet Vol. 8.6 fl (6.2-12.0); Monocyte# 0.68 X10^3/uL; Neutrophil % 85.2 % (47-70); Platelet Count 326 K/mm3 (150-450); RBC Distribution Width CV 17.9 % (11.6-14.6); Red Blood Count 3.12 M/mm3 (4.2-5.4); White Blood Count 11.4 K/mm3 (4.4-11.0)
--- NOTE | 2017-08-09 10:26 | RAD_ITS ---
STUDY: X-RAY CHEST REASON FOR EXAM: Female, 76 years old. Short of breath and dyspnea. TECHNIQUE: Frontal and lateral views of the chest. COMPARISON: June 06, 2017. FINDINGS: There is coarsening/prominence of the interstitial markings within both lung bases. There is mild hyperexpansion and flattening of hemidiaphragms consistent with COPD. There is left lung base alveolar opacification partially obscuring the left diaphragm and blunting the left lateral and left posterior costophrenic angles. There is no pneumothorax. There is borderline cardiomegaly. Normal mediastinum and lourdes. Normal visualized pulmonary arteries. There is atherosclerotic calcification of the aortic arch with tortuosity. There are mild diffuse degenerative changes of the visualized thoracic spine. Normal visualized ribs, clavicles, and shoulders. There is no demonstrated abnormality of the visualized soft tissue structures of the upper abdomen. Patient is status post cholecystectomy and placement of a caval filter. RAD/Chest PA and Lateral IMPRESSION: Left lower lobe consolidation potentially representing pneumonia and/or atelectasis. Small left basilar pleural effusion. Recommend radiographic follow-up until complete clearing to exclude underlying pathology. Borderline cardiomegaly. Atherosclerotic peripheral vascular disease. Underlying chronic interstitial fibrosis/coarsening within both lung bases. Mild diffuse demineralization, consider further evaluation with DEXA. No pneumothorax. No pleural effusion. Electronically Signed: Fredy Tiwari MD at 11:00 EDT , Service support ,
[2017-08-09 10:28] LABS: Anion Gap 8 (5-15); BUN 17 mg/dL (7-18); Calcium,Total 8.4 mg/dL (8.5-10.1); Chloride 105 mmol/L (98-107); Creatinine, Serum 0.71 mg/dL (0.55-1.02); EST Glomerular Filtration Rate 86 mL/min (>60); Est Glom Filt Rate - Afr Amer 103 mL/min (>60); Estimated Creatinine Clearance 39.04 ml/min; Glucose 110 mg/dL (74-106); Potassium 3.5 mmol/L (3.5-5.1); Sodium Level 139 mmol/L (136-145)
[2017-08-09] MEDS: 0.9% Normal Saline 1,000 ML 150 ML IV (10:56)
--- NOTE | 2017-08-09 11:31 | PCM.HP.STD ---
Problem List (1) Chest pain Status: Resolved Qualifiers: Chest pain type: precordial pain Qualified Code(s): R07.2 - Precordial pain (2) Memory changes Status: Resolved (3) SOBOE (shortness of breath on exertion) Status: Acute (4) Severe anemia Status: Acute (5) Anxiety Status: Chronic (6) Chronic back pain Status: Chronic Qualifiers: (7) DVT (deep venous thrombosis) Status: Chronic (8) GERD (gastroesophageal reflux disease) Status: Chronic (9) Hiatal hernia Status: Chronic (10) History of GI bleed Status: Chronic (11) Hyperglycemia Status: Chronic Comment: no hx of DM (12) Hypertension Status: Chronic (13) Insomnia Status: Chronic (14) Iron deficiency anemia Status: Chronic (15) Polysubstance dependence Status: Chronic (16) Presence of IVC filter Status: Chronic Comment: h/o DVT/PE (17) Pulmonary embolism Status: Chronic History of Present Illness Date of Admission: 08/09/17 Chief Complaint: Shortness of breath The patient is a 76 year old F past medical history significant for chronic anemia for which patient has undergone extensive workup including EGD and colonoscopy with no identifiable source. Patient is scheduled to undergo bone marrow biopsy as outpatient as part of her management. Patient presented with shortness of breath. Her shortness of breath is worsened with minimal activity. She did notice some swelling in both lower extremities. Patient has had recurrent symptoms anytime her hemoglobin is down. She presented to the emergency department as a result of was found to have a hemoglobin of 7.7 patient being symptomatic an order was given for patient to be transfused 1 unit PRBC and subsequently admitted to a monitored bed for further management Past Medical History Past Medical History (Chronic Problems): Chronic Problems (Last Updated 07/02/17 @ 17:25 by Merissa Arana) Presence of IVC filter (Chronic) h/o DVT/PE History of GI bleed (Chronic) Anxiety (Chronic) GERD (gastroesophageal reflux disease) (Chronic) Hypertension (Chronic) Hyperglycemia (Chronic) no hx of DM Chronic back pain (Chronic) Hiatal hernia (Chronic) Polysubstance dependence (Chronic) Insomnia (Chronic) DVT (deep venous thrombosis) (Chronic) Pulmonary embolism (Chronic) Iron deficiency anemia (Chronic) Allergies sumatriptan [From Imitrex] Allergy (Verified 04/26/18 10:05) Chest tightness sumatriptan succinate [From Imitrex] Allergy (Verified 08/09/17 10:05) Chest tightness Home Medications: Ambulatory Orders Medication Instructions Recorded Duloxetine HCl 60 mg PO BREAKFAST #30 01/12/17 Lorazepam [Ativan] 2 mg PO QHS #14 01/12/17 NIFEdipine [Procardia Xl] 30 mg PO DAILY #15 01/12/17 Metoprolol Tartrate [Lopressor 50 mg PO BID 06/06/17 (beta julieth)] Surgical History: appendectomy, cholecystectomy, - - back surgery w/ hardware, IVC filter placement. 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 Smoking Status: Former smoker - *Family History Maternal History Items: COPD, - - bladder cancer Paternal History Items: Stroke - at 92 Review of Systems Constitutional: Reports: Weakness HEENT: Denies: Head Aches, Sinus Congestion, Sinus Drainage Cardiovascular: Reports: Edema Respiratory: Reports: Shortness of breath upon exertion Gastrointestinal: Denies: Abdominal Pain, Hematemesis, Hematochezia, Nausea, Melena, Vomiting Genitourinary: Denies: Dysuria, Frequency, Hematuria, Urgency Musculoskeletal: Denies: Joint Pain, Joint Tenderness Skin: Denies: Rash Neurological: Denies: Focal weakness, Numbness, Tingling Psychiatric: Denies: Homicidal Ideations, Suicidal Ideations Hematologic/ Lymphatic: Denies: Easy Bruising, Easy Bleeding VTE Information - Inpt Only VTE Present on Admission: No VTE Mechan Device Prophylaxis: Knee High WALT Hose VTE Pharm Prophylaxis ordered?: Yes Objective: GENERAL: cooperative dyspneic at rest HEENT: Clear conjunctiva, NECK; supple, normal thyroid, CHEST: Diminished to auscultation bilaterally, HEART: Regular S1 S2, no audible murmurs ABDOMEN: soft, non-tender, normoactive bowel sounds, RECTAL: deferred EXTREMITIES: Bilateral trace edema, no clubbing, no cyanosis. HORSEBACK EXCAVATOR: Awake, no lateralizing signs. SKIN: No rash - Physical Exam Vital Signs Temp Pulse Resp BP Pulse Ox 97.7 F L 66 22 H 150/77 H 97 08/09/17 09:50 08/09/17 11:04 08/09/17 11:04 08/09/17 11:04 08/09/17 11:04 Assessment/Plan Patient is a 76-year-old lady with history of chronic anemia with recurrent admission for blood transfusion presented with dyspnea on exertion 1. Traumatic anemia: Patient has been admitted to monitored bed was typed and crossed and an order given for patient to be transfused 1 unit PRBC. As stated in the history present illness patient has had extensive workup including EGD and colonoscopy without any identifiable cause scheduled to undergo bone marrow biopsy by Dr. Garcia with oncology and hematology 2. Previous history of DVT and PE patient has an IVC filter not on systemic anticoagulation due to previous massive GI bleed 3. Hypertension-blood pressure controlled, home medications continued with dose adjustment as needed 4. Lower lobe infiltrates possibly secondary to atelectasis patient clinical presentation consistent with infectious etiology 5. Acute probable diastolic congestive heart failure precipitated by #1 on Lasix echo ordered for EF assessment 6. DVT prophylaxis SC Lovenox Clinical Impression(s) from Imaging Studies Chest X-Ray 08/09/17 10:26 IMPRESSION: Left lower lobe consolidation potentially representing pneumonia and/or atelectasis. Small left basilar pleural effusion. Recommend radiographic follow-up until complete clearing to exclude underlying pathology. Borderline cardiomegaly. Atherosclerotic peripheral vascular disease. Underlying chronic interstitial fibrosis/coarsening within both lung bases. Mild diffuse demineralization, consider further evaluation with DEXA. No pneumothorax. No pleural effusion. Electronically Signed: Fredy Tiwari MD at 11:00 EDT , Service support , Code Visit OBSV E&M: 70384 Initial observation care L3
[2017-08-09 12:21] LABS: BNP,B-Type NATRIURETIC PEPTIDE 376.6 pg/mL (0-100)
[2017-08-09] MEDS: 0.9% NaCl Peripheral Flush Adult/Peds IV ×2 (15:50→16:39)
[2017-08-09] MEDS: Furosemide 40 MG/4 ML Vial IV ×2 (15:50→20:24)
--- NOTE | 2017-08-09 16:37 | CHAPLAIN ---
Type of Pastoral Visit _x__ Initial Visit ___ Follow-up Visit ___ On-call Visit ___ General Patient Visit ___ Spiritual Assessment ___ Family Conference ___ Bereavement ___ Rapid Response ___ Code Blue ___ Other (describe below) Pastoral Care Referral From _x__ Patient _x__ Family ___ Nurse ___ Physician ___ Director Phone ___ Nutrition Professor ___ Other (describe below) Sacrament/Intervention _x__ Active listening ___ Anointing ___ Amish ___ Bereavement ___ Communion _x__ Lesly exploration ___ ___ Life review _x__ Prayer ___ Reconciliation ___ Sacrament of Sick _x__ Supportive presence ___ Wedding ___ Other (describe below) Pastoral Comments
[2017-08-09] MEDS: hydrALAZINE 20 MG/ML Vial 10 MG IV (16:39)
[2017-08-09] MEDS: Acetaminophen 325 MG Tablet 650 MG PO (20:24)
[2017-08-09] MEDS: Metoprolol Tartrate 50 MG Tablet PO (23:24)
[2017-08-09] MEDS: LORazepam 1 MG Tablet 2 MG PO (23:24)
[2017-08-10 03:57] VITALS: PULSE 63
[2017-08-10 04:10] VITALS: BP 135/66; PULSE 60; RESP 18; TEMP 37.3; O2SAT 100
[2017-08-10] MEDS: Furosemide 40 MG/4 ML Vial IV (06:14)
[2017-08-10 06:15] LABS: Hematocrit 29.7 % (37-47); Hemoglobin 9.1 g/dl (12.0-15.0); Mean Corp Hgb Conc 30.6 g/gl (32-36); Mean Corpuscular Hgb 24.2 pg (27.0-32.0); Mean Platelet Vol. 8.5 fl (6.2-12.0); Platelet Count 303 K/mm3 (150-450); RBC Distribution Width CV 17.2 % (11.6-14.6); RBC Distribution Width SD 49.2 fl (35.1-43.9); Red Blood Count 3.76 M/mm3 (4.2-5.4); White Blood Count 7.2 K/mm3 (4.4-11.0)
[2017-08-10] MEDS: 0.9% NaCl Peripheral Flush Adult/Peds IV (06:17)
[2017-08-10 06:21] LABS: Scan Indicated on CBC? Y/N NO
[2017-08-10 06:31] LABS: Anion Gap 9 (5-15); BUN 16 mg/dL (7-18); BUN/Creat Ratio 20.4 RATIO (10-20); Calcium,Total 8.8 mg/dL (8.5-10.1); Chloride 101 mmol/L (98-107); Creatinine, Serum 0.78 mg/dL (0.55-1.02); EST Glomerular Filtration Rate 76 mL/min (>60); Est Glom Filt Rate - Afr Amer 92 mL/min (>60); Estimated Creatinine Clearance 39.04 ml/min; Glucose 101 mg/dL (74-106); Potassium 3.3 mmol/L (3.5-5.1); Sodium Level 138 mmol/L (136-145)
[2017-08-10 07:23] VITALS: PULSE 59
[2017-08-10] MEDS: Acetaminophen 325 MG Tablet 650 MG PO (08:37)
[2017-08-10 08:39] VITALS: BP 151/75; PULSE 82; RESP 18; TEMP 37.1; O2SAT 98
[2017-08-10] MEDS: NIFEdipine 60 MG Tablet 30 MG PO (08:41)
[2017-08-10] MEDS: Enoxaparin 40 MG/0.4 ML Syringe SC (08:41)
[2017-08-10] MEDS: DULoxetine Hcl 60 MG Capsule PO (08:41)
[2017-08-10 08:42] VITALS: PULSE 82
[2017-08-10] MEDS: Metoprolol Tartrate 50 MG Tablet PO (08:42)
--- NOTE | 2017-08-10 09:45 | PCM.DC ---
You will use the following diet at home:: No restrictions Discharge Activity: Return to Normal Activity Allergies/Adverse Reactions: Allergies sumatriptan [From Imitrex] Allergy (Verified 08/09/17 10:05) Chest tightness sumatriptan succinate [From Imitrex] Allergy (Verified 08/09/17 10:05) Chest tightness Medications to take at Discharge Duloxetine HCl 60 mg PO BREAKFAST #30 01/12/17 Lorazepam [Ativan] 2 mg PO QHS #14 01/12/17 NIFEdipine [Procardia Xl] 30 mg PO DAILY #15 01/12/17 Metoprolol Tartrate [Lopressor (beta julieth)] 50 mg PO BID 06/06/17 Tramadol HCl [Ultram] 100 mg PO BID PRN PRN 08/09/17 Furosemide [Lasix] 20 mg PO DAILY #60 tab 08/10/17 The following prescriptions were given: Furosemide [Lasix] 20 mg PO DAILY #60 tab Primary Care Physician: Dinh Hobson Chi, MD [Primary Care Provider] - Please follow up with your Primary Care Physician in: in 1-2 weeks Please Follow Up With: Rodney Connor MD When: for bone marrow biopsy as previously scheduled Proposed Discharge Date: 08/10/17
--- NOTE | 2017-08-10 09:48 | PCM.DC.SUM ---
Discharge Date and Diagnosis Date of Admission: 08/09/17 Date of Discharge: 08/10/17 - Primary Discharge Diagnosis Symptomatic anemia - Secondary Discharge Diagnosis Chronic Problems (Last Updated 07/02/17 @ 17:25 by Merissa Arana) Presence of IVC filter (Chronic) h/o DVT/PE History of GI bleed (Chronic) Anxiety (Chronic) GERD (gastroesophageal reflux disease) (Chronic) Hypertension (Chronic) Hyperglycemia (Chronic) no hx of DM Chronic back pain (Chronic) Hiatal hernia (Chronic) Polysubstance dependence (Chronic) Insomnia (Chronic) DVT (deep venous thrombosis) (Chronic) Pulmonary embolism (Chronic) Iron deficiency anemia (Chronic) Hospital Course and Treatment Imaging Results: Clinical Impression(s) from Imaging Studies Chest X-Ray 08/09/17 10:26 IMPRESSION: Left lower lobe consolidation potentially representing pneumonia and/or atelectasis. Small left basilar pleural effusion. Recommend radiographic follow-up until complete clearing to exclude underlying pathology. Borderline cardiomegaly. Atherosclerotic peripheral vascular disease. Underlying chronic interstitial fibrosis/coarsening within both lung bases. Mild diffuse demineralization, consider further evaluation with DEXA. No pneumothorax. No pleural effusion. Electronically Signed: Fredy Tiwari MD at 11:00 EDT , Service support , Laboratory Results - last 24 hr 08/09/17 08/09/17 08/09/17 09:59 09:59 09:59 WBC 11.4 H RBC 3.12 L Hgb 7.6 L Hct 24.8 L MCV 79.5 L MCH 24.4 L MCHC 30.6 L RDW 17.9 H RDW Differential 52.0 H Plt Count 326 MPV 8.6 Immature Gran % (Auto) 0.300 Neut % (Auto) 85.2 H Lymph % (Auto) 7.5 L Stewart % (Auto) 6.0 Eos % (Auto) 0.7 Baso % (Auto) 0.3 Absolute Neuts (auto) 9.7 H Absolute Lymphs (auto) 0.85 Total Counted Not Reportable Sodium 139 Potassium 3.5 Chloride 105 Carbon Dioxide 26.0 Anion Gap 8 BUN 17 Creatinine 0.71 Estim Creat Clear Calc 39.04 Est GFR (MDRD) Af Amer 103 Est GFR (MDRD) Non-Af 86 BUN/Creatinine Ratio 24.0 H Glucose 110 H Calcium 8.4 L Troponin I < 0.02 B-Natriuretic Peptide Blood Type B POSITIVE Antibody Screen NEGATIVE Crossmatch 08/09/17 08/09/17 08/09/17 09:59 09:59 14:10 WBC RBC Hgb Hct MCV MCH MCHC RDW RDW Differential Plt Count MPV Immature Gran % (Auto) Neut % (Auto) Lymph % (Auto) Stewart % (Auto) Eos % (Auto) Baso % (Auto) Absolute Neuts (auto) Absolute Lymphs (auto) Total Counted Sodium Potassium Chloride Carbon Dioxide Anion Gap BUN Creatinine Estim Creat Clear Calc Est GFR (MDRD) Af Amer Est GFR (MDRD) Non-Af BUN/Creatinine Ratio Glucose Calcium Troponin I < 0.02 B-Natriuretic Peptide 376.6 H Blood Type Antibody Screen Crossmatch See Detail 08/09/17 08/10/17 08/10/17 18:22 00:18 05:25 WBC 7.2 RBC 3.76 L Hgb 9.1 L Hct 29.7 L MCV 79.0 L MCH 24.2 L MCHC 30.6 L RDW 17.2 H RDW Differential 49.2 H Plt Count 303 MPV 8.5 Immature Gran % (Auto) Neut % (Auto) Lymph % (Auto) Stewart % (Auto) Eos % (Auto) Baso % (Auto) Absolute Neuts (auto) Absolute Lymphs (auto) Total Counted Sodium Potassium Chloride Carbon Dioxide Anion Gap BUN Creatinine Estim Creat Clear Calc Est GFR (MDRD) Af Amer Est GFR (MDRD) Non-Af BUN/Creatinine Ratio Glucose Calcium Troponin I < 0.02 < 0.02 B-Natriuretic Peptide Blood Type Antibody Screen Crossmatch 08/10/17 05:25 WBC RBC Hgb Hct MCV MCH MCHC RDW RDW Differential Plt Count MPV Immature Gran % (Auto) Neut % (Auto) Lymph % (Auto) Stewart % (Auto) Eos % (Auto) Baso % (Auto) Absolute Neuts (auto) Absolute Lymphs (auto) Total Counted Sodium 138 Potassium 3.3 L Chloride 101 Carbon Dioxide 28.0 Anion Gap 9 BUN 16 Creatinine 0.78 Estim Creat Clear Calc 39.04 Est GFR (MDRD) Af Amer 92 Est GFR (MDRD) Non-Af 76 BUN/Creatinine Ratio 20.4 H Glucose 101 Calcium 8.8 Troponin I B-Natriuretic Peptide Blood Type Antibody Screen Crossmatch Operations: None Summary of Care Provided: Patient is a 76-year-old lady with history of chronic anemia with recurrent admission for blood transfusion presented with dyspnea on exertion 1. Symptomatic anemia: Patient has been admitted to monitored bed was typed and crossed and an order given for patient to be transfused 1 unit PRBC. As stated in the history present illness patient has had extensive workup including EGD and colonoscopy without any identifiable cause scheduled to undergo bone marrow biopsy by Dr. Connor with oncology and hematology 2. Previous history of DVT and PE patient has an IVC filter not on systemic anticoagulation due to previous massive GI bleed 3. Hypertension-blood pressure controlled, home medications continued with dose adjustment as needed 4. Lower lobe infiltrates possibly secondary to atelectasis patient clinical presentation consistent with infectious etiology 5. Acute diastolic congestive heart failure precipitated by #1 on Lasix echo seen in May 2017 demonstrated ejection fraction of 60% 6. DVT prophylaxis SC Lovenox 7. Hypokalemia secondary to use of diuretics corrected per protocol Discharge Diet: No Restrictions Discharge Activity: Return to Normal Activity Home Medications: Medications to take at Discharge Duloxetine HCl 60 mg PO BREAKFAST #30 01/12/17 Lorazepam [Ativan] 2 mg PO QHS #14 01/12/17 NIFEdipine [Procardia Xl] 30 mg PO DAILY #15 01/12/17 Metoprolol Tartrate [Lopressor (beta julieth)] 50 mg PO BID 06/06/17 Tramadol HCl [Ultram] 100 mg PO BID PRN PRN 08/09/17 Furosemide [Lasix] 20 mg PO DAILY #60 tab 08/10/17 Following Prescrptions Were Given to Patient: Furosemide [Lasix] 20 mg PO DAILY #60 tab Primary Care Physician: Dinh Hobson Chi, MD [Primary Care Provider] - Please follow up with your Primary Care Physician in: in 1-2 weeks Please Follow Up With: Rodney Connor MD When: for bone marrow biopsy as previously scheduled Disposition: Home Minutes spent on discharge:: 35 Patient Condition:: Stable Medical Necessity - Tobacco Use Smoking Status: Former smoker Meaningful Use Info Meaningful Use Diagnoses (Choose all that apply): None applicable Code Visit OBSV E&M: 91336 Observation care discharge
[2017-08-10 11:33] VITALS: O2SAT 98
== END 2017-08-10 12:12 | disposition home or self-care (01) ==
LOC: ED 10:44 → MS3 11:29
PROVIDERS: Admitting Provider Internal Medicine; Emergency Provider Emergency Medicine; Family Provider Family Medicine Geriatric Medicine; PCP Family Medicine Geriatric Medicine; Visit Provider Internal Medicine
DX: D50.9 Iron deficiency anemia, unspecified (principal); K21.9 Gastro-esophageal reflux disease without esophagitis; F41.9 Anxiety disorder, unspecified; G89.29 Other chronic pain; M54.9 Dorsalgia, unspecified; Z86.718 Personal history of other venous thrombosis and embolism; Z86.711 Personal history of pulmonary embolism; I11.0 Hypertensive heart disease with heart failure; I50.31 Acute diastolic (congestive) heart failure; Z79.899 Other long term (current) drug therapy; E87.6 Hypokalemia; Z87.891 Personal history of nicotine dependence
CPT/HCPCS: 36415; 36430; 71046; 80048; 83880; 84484; 85025; 85027; 86850; 86900; 86920; 93005; 96361; 96372; 96374; 96375; 96376; 99218; 99251; 99285; J7030; J7040; P9016; A4216; G0378; G0463; J1940

== ENCOUNTER → 2017-08-24 09:02 | Outpatient (CLI) | payer MEDICARE, OTHER, SELFPAY | PROVIDERS: Family Provider Family Medicine Geriatric Medicine; PCP Family Medicine Geriatric Medicine; Visit Provider Family Medicine Geriatric Medicine | DX: I10 Essential (primary) hypertension (principal); E55.9 Vitamin D deficiency, unspecified ==

== ENCOUNTER 2017-09-13 16:25 | Inpatient (IN) | payer MEDICARE, OTHER, SELFPAY ==
[2017-09-13] VITALS (9 sets, daily range): BP systolic 112–154; BP diastolic 59–86; PULSE 69–134; RESP 16–25; TEMP 37.3–37.8; O2SAT 97–100; BMI 25.6; BMI 26.8
--- NOTE | 2017-09-13 16:43 | RAD_ITS ---
STUDY: X-RAY CHEST REASON FOR EXAM: Female, 76 years old. Cough TECHNIQUE: Frontal and lateral views COMPARISON: August 09, 2017 FINDINGS: The lungs are expanded. Increasing opacity in the left base near the costophrenic angle suggesting an infiltrate. Bilateral pulmonary interstitial prominence. Stable mild cardiomegaly. Normal mediastinum and lourdes. Normal visualized pulmonary arteries. Normal visualized aortic arch and descending thoracic aorta. Normal visualized thoracic spine. Normal visualized ribs, clavicles, and shoulders. Hiatal hernia. IVC filter noted. Surgical clips in the right upper quadrant. RAD/Chest PA and Lateral IMPRESSION: Increasing opacity in the left base near the costophrenic angle suggesting an infiltrate. Bilateral pulmonary interstitial prominence. Mild cardiomegaly. Hiatal hernia. Electronically Signed: Kei Johnson DO at 18:16 EDT Tel [phone], Service support ,
--- NOTE | 2017-09-13 16:43 | EKG12_ITS ---
Test Reason : SOB Blood Pressure : / mmHG Vent. Rate : 114 BPM Atrial Rate : 114 BPM P-R Int : 148 ms QRS Dur : 086 ms QT Int : 322 ms P-R-T Axes : 040 004 067 degrees QTc Int : 443 ms Sinus tachycardia Nonspecific ST and T wave abnormality Abnormal ECG Confirmed by DANNY PINA ([id number]), international editorial producer SIMI RIOS ([id number] on 09/24/2017 6:22:36 PM Referred By: Sirena Alvarez Confirmed By:DANNY PINA
[2017-09-13] MEDS: Ipratropium/Albuterol Sulfate 3 ML AMPUL.NEB INHALATION (17:10)
[2017-09-13 17:34] LABS: Absolute Lymphocyte Count 1.19 X10^3/ul (0.83-4.51); Absolute Neutrophil Count 9.4 X10^3/uL (2.0-7.7); Basophil# 0.03 X10^3/uL; Basophil% 0.3 % (0-1); Eosinophil# 0.05 X10^3/uL; Eosinophils% 0.4 % (0-5); Hematocrit 34.4 % (37-47); Hemoglobin 11.1 g/dl (12.0-15.0); Lymphocyte # 1.19 X10^3/ul (4.0); Mean Corp Hgb Conc 32.3 g/gl (32-36); Mean Corpuscular Hgb 25.1 pg (27.0-32.0); Mean Corpuscular Volume 77.7 fL (81-99); Mean Platelet Vol. 8.6 fl (6.2-12.0); Monocyte# 1.12 X10^3/uL; Monocyte% 9.5 % (0-10); Neutrophil # 9.41 X10^3/uL (2.7-7.7); Neutrophil % 79.4 % (47-70); POSITIVE COUNT NO; POSITIVE DIFFERENTIAL NO; POSITIVE MORPHOLOGY NO; Platelet Count 274 K/mm3 (150-450); RBC Distribution Width CV 17.3 % (11.6-14.6); RBC Distribution Width SD 49.3 fl (35.1-43.9); Red Blood Count 4.43 M/mm3 (4.2-5.4); White Blood Count 11.9 K/mm3 (4.4-11.0)
[2017-09-13 18:02] LABS: Anion Gap 11 (5-15); BUN 10 mg/dL (7-18); BUN/Creat Ratio 10.3 RATIO (10-20); Calcium,Total 9.3 mg/dL (8.5-10.1); Chloride 99 mmol/L (98-107); Creatinine, Serum 0.97 mg/dL (0.55-1.02); EST Glomerular Filtration Rate 60 mL/min (>60); Est Glom Filt Rate - Afr Amer 72 mL/min (>60); Estimated Creatinine Clearance 40.24 ml/min; Glucose 137 mg/dL (74-106); Potassium 3.2 mmol/L (3.5-5.1); Sodium Level 134 mmol/L (136-145)
[2017-09-13 18:08] LABS: Lactic Acid 3.3 mmol/L (0.4-2.0)
[2017-09-13] MEDS: 0.9% Normal Saline 1,000 ML 150 ML IV (18:11)
--- NOTE | 2017-09-13 18:24 | ED.VISSUMM ---
- ER Visit Summary Date of Service: 09/13/17 Chief Complaint: [Cough and shortness of breath] History of Present Illness: The patient is a 76 F [presents to the emergency department with complaint of shortness of breath and cough that started initially 2 weeks ago. Patient states that she developed a fever today. Patient's had increasing shortness of breath over last 24 hours. Patient was seen in urgent care today and sent to the ER for further evaluation. Patient denies recent travel or surgery.] Physical Examination: [HEENT-PERRLA, EOMI. Cranial nerves II through XII grossly intact. TMs clear. Mucous membranes moist. No adenopathy. Cardiovascular-regular and tachycardic. No murmurs auscultated. Lungs -good aeration bilaterally, occasional rhonchi noted, faint expiratory wheezes noted bilaterally. Abdomen-normoactive bowel sounds, soft, nontender, no rebound or rigidity, no peritoneal signs. Extremities-intact ?4, normal range of motion, normal pulses, atraumatic] Test Results: [EKG obtained arrival shows sinus tachycardia with a ventricular rate of 114 bpm with some nonspecific ST changes. CBC with differential obtained showed white count of 11.9, hemoglobin 11, hematocrit 34, platelets 274. History is unremarkable other than a potassium 3.2 for which she did receive 40 mEq of potassium chloride p.o. Troponin was less than 0.015. Lactate was elevated 3.3. Chest x-ray obtained showed left lower lobe infiltrate.] Blood culture and sputum culture ordered and pending. Emergency Department Course and Treatment: [Patient was given a DuoNeb aerosol. Patient received Rocephin and Zithromax IV. Patient received fluid bolus.] Treatment Plan: [Admit for IV antibiotics.] Disposition: [Admit] Impression: [Community-acquired pneumonia Sepsis] This note was generated with [employer] dictation software. It may contain incorrect words, spelling, and punctuation that were not noted in review of the chart prior to signing ED Disposition - Plan for ED Patient: Chief Complaint: Cough Referrals: Care Physician,No Primary [Primary Care Provider] -
--- NOTE | 2017-09-13 18:41 | DT_ITS ---
This patient was seen during an EMR downtime September 17, 2017 - September 24, 2017. This patient may have a combination of paper and electronic documentation or all paper documentation. All documentation is viewable within the e-chart portion of [facility] [employer] for each patient visit.
--- NOTE | 2017-09-13 18:48 | PCM.HP.STD ---
Problem List (1) History of GI bleed Status: Chronic (2) GERD (gastroesophageal reflux disease) Status: Chronic (3) Hypertension Status: Chronic (4) Chronic back pain Status: Chronic Qualifiers: (5) DVT (deep venous thrombosis) Status: Chronic (6) Pulmonary embolism Status: Chronic (7) Iron deficiency anemia Status: Chronic History of Present Illness Date of Admission: 09/13/17 Chief Complaint: Cough, shortness of breath. The patient is a 76 year old F with past medical history as mentioned above presented to the emergency room because of cough and shortness of breath. Her illness started around a little bit more than 2 weeks ago with slowly and progressively increasing shortness of breath, mainly with activity and it got worse over the last 24 hours, associated with productive cough with green sputum as well as fever and without aggravating or relieving factors. She has been having productive cough with moderate to large amount of green sputum for the last 4 days, associated with fever of 103 at the urgent care today as well as subjective fever at home and also associated with weakness. No chest pain, palpitation, dizziness or lightheadedness. She denied abdominal pain, nausea or vomiting. Denies urinary symptoms. In the emergency department, she was febrile, tachycardic, blood pressure was stable and pulse ox was 97% on room air. Routine blood work is remarkable for mild leukocytosis, chronic anemia with hemoglobin of 11.1 g/dL, potassium of 3.2. Lactic acid was 3.3. Troponin was negative. EKG revealed sinus tachycardia, no acute ischemic changes. Chest x-ray revealed obliteration of the left costophrenic angle with increasing left base opacity probably due to consolidation. She is being admitted for left lower lobe community-acquired pneumonia with sepsis. Past Medical History Past Medical History (Chronic Problems): Chronic Problems (Last Updated 09/13/17 @ 18:56 by Kai Hutchison MD) Presence of IVC filter (Chronic) h/o DVT/PE History of GI bleed (Chronic) Anxiety (Chronic) GERD (gastroesophageal reflux disease) (Chronic) Hypertension (Chronic) Hyperglycemia (Chronic) no hx of DM Chronic back pain (Chronic) Hiatal hernia (Chronic) Polysubstance dependence (Chronic) Insomnia (Chronic) DVT (deep venous thrombosis) (Chronic) Pulmonary embolism (Chronic) Iron deficiency anemia (Chronic) Medical History: Medical History (Last Updated 09/13/17 @ 18:55 by Kai Hutchison MD) Migraines G43.909 Pulmonary embolism I26.99 HTN (hypertension) I10 Allergies sumatriptan [From Imitrex] Allergy (Verified 09/13/17 16:26) Chest tightness sumatriptan succinate [From Imitrex] Allergy (Verified 09/13/17 16:26) Chest tightness Home Medications: Ambulatory Orders Medication Instructions Recorded Duloxetine HCl 60 mg PO BREAKFAST #30 01/12/17 Lorazepam [Ativan] 2 mg PO QHS #14 01/12/17 NIFEdipine [Procardia Xl] 30 mg PO DAILY #15 01/12/17 Metoprolol Tartrate [Lopressor 50 mg PO BID 06/06/17 (beta julieth)] Tramadol HCl [Ultram] 100 mg PO BID PRN PRN 08/09/17 Furosemide [Lasix] 20 mg PO DAILY #60 tab 08/10/17 proMETHazine/codeine soln 5 ml PO Q6H PRN PRN #120 ml 09/13/17 [Phenergan with Codeine oral solution] Surgical History: Surgical History (Last Reviewed 09/13/17 @ 10:20 by Olivia Story) History of back surgery Z98.890 Hx of cholecystectomy Z90.49 H/O laminectomy Z98.890 1990 h/o gallbladder Surgical History: appendectomy, cholecystectomy, - - back surgery w/ hardware, IVC filter placement. 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 Denies: Anorexia, Chills Eyes: Denies: Blurred vision, Double vision, Drainage, Redness HEENT: Denies: Difficulty Hearing, Ear Pain, Eye Pain, Nasal Congestion, Sore Throat Cardiovascular: Denies: Chest Pain, Chest Pressure, Chest Tightness, Edema, Heaviness, Light Headedness, Palpitations, Paroxysmal Noc. Dyspnea, Syncope Respiratory: Reports: Cough, Pleuritic Pain, Shortness of Breath, Shortness of breath upon exertion, Sputum production. Denies: Wheezing Gastrointestinal: Denies: Abdominal Pain, Constipation, Diarrhea, Nausea, Vomiting Genitourinary: Denies: Dysuria, Frequency, Hematuria Musculoskeletal: Denies: Arm Pain, Back Pain, Foot Pain Skin: Denies: Dryness, Rash Neurological: Denies: Balance problems, Double vision, Change in Speech, Slurred speech, Confusion, Focal weakness, Incoordination, Numbness Psychiatric: Denies: Anxiety, Depression Endocrine: Denies: Change in Body Habitus, Polydipsia VTE Information - Inpt Only VTE Present on Admission: No VTE Mechan Device Prophylaxis: None VTE Pharm Prophylaxis ordered?: Yes - Physical Exam General: Alert, Oriented x3, Cooperative, - - Minimal shortness of breath. HEENT: Atraumatic, PERRLA, EOMI Oral: Moist Mucosa, No Gingival or Mucosal Lesions/ Ulcerations Neck: Supple, No JVD, Negative Carotid Bruits, Trachea Midline, Thyroid Normal Size and Texture Lungs: No wheeze, No rales, Diminished, Rhonchi, Short of Breath, - - Decreased breath sounds on the left base, scattered rhonchi. Cardiovascular: Regular rate, Regular Rhythm, Normal S1, Normal S2, No murmurs, PMI Normal, Tachycardic Abdomen: Bowel Sounds Present, Soft, Non Tender, Non-Distended, No Hepato-splenomegaly Extremities: No clubbing, No cyanosis, No edema Skin: No rashes, No breakdown Lymphatic: No Cervical, Supraclavicular, or Inguinal Adenopathy Neurological: Cranial nerves II-XII grossly intact, Motor Exam 5/5 strength throughout Psych/Mental Status: Normal Affect, Appropriate, Alert and oriented to time, place, person, mood and affect Vital Signs Temp Pulse Resp BP Pulse Ox 100.1 F H 115 H 23 H 154/86 H 97 09/13/17 16:26 09/13/17 17:10 09/13/17 17:10 09/13/17 16:26 09/13/17 16:26 Oxygen Delivery Method Room Air Weight: 140 lb Body Mass Index (BMI) 25.6 Laboratory Tests Past 24 Hrs 09/13/17 09/13/17 09/13/17 17:15 17:15 17:15 WBC 11.9 H RBC 4.43 Hgb 11.1 L Hct 34.4 L MCV 77.7 L MCH 25.1 L MCHC 32.3 RDW 17.3 H RDW Differential 49.3 H Plt Count 274 MPV 8.6 Immature Gran % (Auto) 0.400 Neut % (Auto) 79.4 H Lymph % (Auto) 10.0 L [place] % (Auto) 9.5 Eos % (Auto) 0.4 Baso % (Auto) 0.3 Absolute Neuts (auto) 9.4 H Absolute Lymphs (auto) 1.19 Total Counted Not Reportable Sodium 134 L Potassium 3.2 L Chloride 99 Carbon Dioxide 24.0 Anion Gap 11 BUN 10 Creatinine 0.97 Estim Creat Clear Calc 40.24 Est GFR (MDRD) Af Amer 72 Est GFR (MDRD) Non-Af 60 BUN/Creatinine Ratio 10.3 Glucose 137 H Lactic Acid 3.3 H Calcium 9.3 Troponin I < 0.015 Clinical Impression(s) from Imaging Studies Chest X-Ray 09/13/17 16:43 IMPRESSION: Increasing opacity in the left base near the costophrenic angle suggesting an infiltrate. Bilateral pulmonary interstitial prominence. Mild cardiomegaly. Hiatal hernia. Electronically Signed: Kei Johnson DO at 18:16 EDT Tel [phone], Service support , Assessment/Plan All Active Problems (Last Updated 09/13/17 @ 18:56 by Kai Hutchison MD) Delirium, acute (Resolved) History of deep venous thrombosis or pulmonary embolus (Resolved) History of pulmonary embolism (Resolved) UTI (urinary tract infection) (Resolved) This is a 76 year-old female patient presented to the emergency room because of shortness of breath, cough with sputum production and fever and she was found to have increasing left base consolidation consistent with community acquired pneumonia with sepsis. #1 left lung community acquired pneumonia/sepsis: Chest x-ray reviewed, she does have chronic changes in the left base but size of the opacity is increasing along with fever, tachycardia, elevated lactic acid and mild leukocytosis which is consistent with community acquired pneumonia. Last admission was back in July, but she remained in the hospital for less than 48 hours. At this time, she is febrile, tachycardic, blood pressure stable, pulse ox is maintained on room air. Plan: Admit to PCU, cardiac monitoring, continue IV fluids, blood culture, urine culture, sputum culture, repeat lactic acid in 3 hours, oxygen by nasal cannula to keep O2 saturation more than 92%, start IV Rocephin and Zithromax, bronchodilators, incentive spirometer, Tylenol as needed, repeat CBC and BMP tomorrow morning, chest physical therapy, PT OT evaluation and treatment. #2 hypertension: Blood pressure stable, continue metoprolol and nifedipine. #3 chronic anemia: Baseline hemoglobin has been around 8 up to 11 g/dL, fluctuating. She has been getting blood transfusion and follow up with hematology as outpatient. Admission hemoglobin is 11.1 g/dL, stable at baseline, no evidence of active bleeding, no indication for transfusion. #4 history of DVT/PE: Status post IVC. Stable. #5 GERD: Continue PPI. #6 anxiety: Continue Ativan nightly. #7 DVT prophylaxis: Subcu Lovenox. This note was generated with [employer] dictation software. It may contain incorrect words, spelling, and punctuation that were not noted in checking the note before signing. Code Visit Inpatient E&M: 04840 Init Hosp L3
[2017-09-13] MEDS: Ceftriaxone 1 GM/50 ML BAG IV (18:53)
--- NOTE | 2017-09-13 18:54 | HP.PCM_ITS ---
Problem List (1) History of GI bleed Status: Chronic (2) GERD (gastroesophageal reflux disease) Status: Chronic (3) Hypertension Status: Chronic (4) Chronic back pain Status: Chronic Qualifiers: (5) DVT (deep venous thrombosis) Status: Chronic (6) Pulmonary embolism Status: Chronic (7) Iron deficiency anemia Status: Chronic History of Present Illness Date of Admission: 09/13/17 Chief Complaint: Cough, shortness of breath. The patient is a 76 year old F with past medical history as mentioned above presented to the emergency room because of cough and shortness of breath. Her illness started around a little bit more than 2 weeks ago with slowly and progressively increasing shortness of breath, mainly with activity and it got worse over the last 24 hours, associated with productive cough with green sputum as well as fever and without aggravating or relieving factors. She has been having productive cough with moderate to large amount of green sputum for the last 4 days, associated with fever of 103 at the urgent care today as well as subjective fever at home and also associated with weakness. No chest pain, palpitation, dizziness or lightheadedness. She denied abdominal pain, nausea or vomiting. Denies urinary symptoms. In the emergency department, she was febrile, tachycardic, blood pressure was stable and pulse ox was 97% on room air. Routine blood work is remarkable for mild leukocytosis, chronic anemia with hemoglobin of 11.1 g/dL, potassium of 3.2. Lactic acid was 3.3. Troponin was negative. EKG revealed sinus tachycardia, no acute ischemic changes. Chest x-ray revealed obliteration of the left costophrenic angle with increasing left base opacity probably due to consolidation. She is being admitted for left lower lobe community-acquired pneumonia with sepsis. Past Medical History Past Medical History (Chronic Problems): Chronic Problems (Last Updated 09/13/17 @ 18:56 by Kai Hutchison MD) Presence of IVC filter (Chronic) h/o DVT/PE History of GI bleed (Chronic) Anxiety (Chronic) GERD (gastroesophageal reflux disease) (Chronic) Hypertension (Chronic) Hyperglycemia (Chronic) no hx of DM Chronic back pain (Chronic) Hiatal hernia (Chronic) Polysubstance dependence (Chronic) Insomnia (Chronic) DVT (deep venous thrombosis) (Chronic) Pulmonary embolism (Chronic) Iron deficiency anemia (Chronic) Medical History: Medical History (Last Updated 09/13/17 @ 18:55 by Kai Hutchison MD) Migraines G43.909 Pulmonary embolism I26.99 HTN (hypertension) I10 Allergies sumatriptan [From Imitrex] Allergy (Verified 09/13/17 16:26) Chest tightness sumatriptan succinate [From Imitrex] Allergy (Verified 09/13/17 16:26) Chest tightness Home Medications: Ambulatory Orders Medication Instructions Recorded Duloxetine HCl 60 mg PO BREAKFAST #30 01/12/17 Lorazepam [Ativan] 2 mg PO QHS #14 01/12/17 NIFEdipine [Procardia Xl] 30 mg PO DAILY #15 01/12/17 Metoprolol Tartrate [Lopressor 50 mg PO BID 06/06/17 (beta julieth)] Tramadol HCl [Ultram] 100 mg PO BID PRN PRN 08/09/17 Furosemide [Lasix] 20 mg PO DAILY #60 tab 08/10/17 proMETHazine/codeine soln 5 ml PO Q6H PRN PRN #120 ml 09/13/17 [Phenergan with Codeine oral solution] Surgical History: Surgical History (Last Reviewed 09/13/17 @ 10:20 by Olivia Story) History of back surgery Z98.890 Hx of cholecystectomy Z90.49 H/O laminectomy Z98.890 1990 h/o gallbladder Surgical History: appendectomy, cholecystectomy, - - back surgery w/ hardware, IVC filter placement. 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 Denies: Anorexia, Chills Eyes: Denies: Blurred vision, Double vision, Drainage, Redness HEENT: Denies: Difficulty Hearing, Ear Pain, Eye Pain, Nasal Congestion, Sore Throat Cardiovascular: Denies: Chest Pain, Chest Pressure, Chest Tightness, Edema, Heaviness, Light Headedness, Palpitations, Paroxysmal Noc. Dyspnea, Syncope Respiratory: Reports: Cough, Pleuritic Pain, Shortness of Breath, Shortness of breath upon exertion, Sputum production. Denies: Wheezing Gastrointestinal: Denies: Abdominal Pain, Constipation, Diarrhea, Nausea, Vomiting Genitourinary: Denies: Dysuria, Frequency, Hematuria Musculoskeletal: Denies: Arm Pain, Back Pain, Foot Pain Skin: Denies: Dryness, Rash Neurological: Denies: Balance problems, Double vision, Change in Speech, Slurred speech, Confusion, Focal weakness, Incoordination, Numbness Psychiatric: Denies: Anxiety, Depression Endocrine: Denies: Change in Body Habitus, Polydipsia VTE Information - Inpt Only VTE Present on Admission: No VTE Mechan Device Prophylaxis: None VTE Pharm Prophylaxis ordered?: Yes - Physical Exam General: Alert, Oriented x3, Cooperative, - - Minimal shortness of breath. HEENT: Atraumatic, PERRLA, EOMI Oral: Moist Mucosa, No Gingival or Mucosal Lesions/ Ulcerations Neck: Supple, No JVD, Negative Carotid Bruits, Trachea Midline, Thyroid Normal Size and Texture Lungs: No wheeze, No rales, Diminished, Rhonchi, Short of Breath, - - Decreased breath sounds on the left base, scattered rhonchi. Cardiovascular: Regular rate, Regular Rhythm, Normal S1, Normal S2, No murmurs, PMI Normal, Tachycardic Abdomen: Bowel Sounds Present, Soft, Non Tender, Non-Distended, No Hepato- splenomegaly Extremities: No clubbing, No cyanosis, No edema Skin: No rashes, No breakdown Lymphatic: No Cervical, Supraclavicular, or Inguinal Adenopathy Neurological: Cranial nerves II-XII grossly intact, Motor Exam 5/5 strength throughout Psych/Mental Status: Normal Affect, Appropriate, Alert and oriented to time, place, person, mood and affect Vital Signs Temp Pulse Resp BP Pulse Ox 100.1 F H 115 H 23 H 154/86 H 97 09/13/17 16:26 09/13/17 17:10 09/13/17 17:10 09/13/17 16:26 09/13/17 16:26 Oxygen Delivery Method Room Air Weight: 140 lb Body Mass Index (BMI) 25.6 Laboratory Tests Past 24 Hrs 09/13/17 09/13/17 09/13/17 17:15 17:15 17:15 WBC 11.9 H RBC 4.43 Hgb 11.1 L Hct 34.4 L MCV 77.7 L MCH 25.1 L MCHC 32.3 RDW 17.3 H RDW Differential 49.3 H Plt Count 274 MPV 8.6 Immature Gran % (Auto) 0.400 Neut % (Auto) 79.4 H Lymph % (Auto) 10.0 L [place] % (Auto) 9.5 Eos % (Auto) 0.4 Baso % (Auto) 0.3 Absolute Neuts (auto) 9.4 H Absolute Lymphs (auto) 1.19 Total Counted Not Reportable Sodium 134 L Potassium 3.2 L Chloride 99 Carbon Dioxide 24.0 Anion Gap 11 BUN 10 Creatinine 0.97 Estim Creat Clear Calc 40.24 Est GFR (MDRD) Af Amer 72 Est GFR (MDRD) Non-Af 60 BUN/Creatinine Ratio 10.3 Glucose 137 H Lactic Acid 3.3 H Calcium 9.3 Troponin I < 0.015 Clinical Impression(s) from Imaging Studies Chest X-Ray 09/13/17 16:43 IMPRESSION: Increasing opacity in the left base near the costophrenic angle suggesting an infiltrate. Bilateral pulmonary interstitial prominence. Mild cardiomegaly. Hiatal hernia. Electronically Signed: Kei Johnson DO at 18:16 EDT Tel [phone], Service support , Assessment/Plan All Active Problems (Last Updated 09/13/17 @ 18:56 by Kai Hutchison MD) Delirium, acute (Resolved) History of deep venous thrombosis or pulmonary embolus (Resolved) History of pulmonary embolism (Resolved) UTI (urinary tract infection) (Resolved) This is a 76 year-old female patient presented to the emergency room because of shortness of breath, cough with sputum production and fever and she was found to have increasing left base consolidation consistent with community acquired pneumonia with sepsis. #1 left lung community acquired pneumonia/sepsis: Chest x-ray reviewed, she does have chronic changes in the left base but size of the opacity is increasing along with fever, tachycardia, elevated lactic acid and mild leukocytosis which is consistent with community acquired pneumonia. Last admission was back in July, but she remained in the hospital for less than 48 hours. At this time, she is febrile, tachycardic, blood pressure stable , pulse ox is maintained on room air. Plan: Admit to PCU, cardiac monitoring, continue IV fluids, blood culture, urine culture, sputum culture, repeat lactic acid in 3 hours, oxygen by nasal cannula to keep O2 saturation more than 92%, start IV Rocephin and Zithromax, bronchodilators, incentive spirometer, Tylenol as needed, repeat CBC and BMP tomorrow morning, chest physical therapy, PT OT evaluation and treatment. #2 hypertension: Blood pressure stable, continue metoprolol and nifedipine. #3 chronic anemia: Baseline hemoglobin has been around 8 up to 11 g/dL, fluctuating. She has been getting blood transfusion and follow up with hematology as outpatient. Admission hemoglobin is 11.1 g/dL, stable at baseline , no evidence of active bleeding, no indication for transfusion. #4 history of DVT/PE: Status post IVC. Stable. #5 GERD: Continue PPI. #6 anxiety: Continue Ativan nightly. #7 DVT prophylaxis: Subcu Lovenox. This note was generated with [employer] dictation software. It may contain incorrect words, spelling, and punctuation that were not noted in checking the note before signing. Code Visit Inpatient E&M: 12937 Init Hosp L3
[2017-09-13] MEDS: 0.9% Normal Saline 1,000 ML 999 ML IV (19:42)
[2017-09-13 21:26] LABS: Reflex Lactate? Y
[2017-09-13] MEDS: Metoprolol Tartrate 50 MG Tablet PO (22:01)
[2017-09-13] MEDS: LORazepam 1 MG Tablet 2 MG PO (22:01)
[2017-09-13 22:35] LABS: Lactic Acid 2.3 mmol/L (0.4-2.0)
[2017-09-14] VITALS (17 sets, daily range): BP systolic 106–153; BP diastolic 54–91; PULSE 72–101; RESP 16–20; TEMP 36.7–38.2; O2SAT 94–98
[2017-09-14 01:59] LABS: Color, Urine Yellow (Yellow); Glucose, Dipstick Normal (Normal); Ketone-Dipstick Negative (Negative); Leukocyte Esterase-Dipstick 100 /ul (Negative); Nitrite-Dipstick Negative (Negative); Occult Blood-Urine Negative /ul (Negative); Protein-Dipstick Negative (Negative); Specific Gravity, Urine 1.005 (1.002-1.030); Urine Bilirubin Dipstick Negative (Negative); Urine Clarity Clear (Clear); Urine Urobilinogen Normal (Normal)
[2017-09-14] MEDS: Acetaminophen 325 MG Tablet 650 MG PO ×2 (02:01→14:45)
[2017-09-14] MEDS: guaiFENesin 10 ML UDC (200MG/10ML) PO ×3 (04:15→22:45)
[2017-09-14 07:03] LABS: Absolute Lymphocyte Count 1.11 X10^3/ul (0.83-4.51); Absolute Neutrophil Count 6.5 X10^3/uL (2.0-7.7); Basophil# 0.02 X10^3/uL; Basophil% 0.2 % (0-1); Eosinophil# 0.11 X10^3/uL; Eosinophils% 1.2 % (0-5); Hematocrit 26.5 % (37-47); Hemoglobin 8.2 g/dl (12.0-15.0); Lymphocyte # 1.11 X10^3/ul (4.0); Lymphocyte % 12.5 % (19-41); Mean Corp Hgb Conc 30.9 g/gl (32-36); Mean Corpuscular Hgb 24.5 pg (27.0-32.0); Mean Corpuscular Volume 79.1 fL (81-99); Monocyte# 1.13 X10^3/uL; Monocyte% 12.7 % (0-10); Neutrophil # 6.49 X10^3/uL (2.7-7.7); Platelet Count 222 K/mm3 (150-450); RBC Distribution Width CV 17.3 % (11.6-14.6); RBC Distribution Width SD 50.3 fl (35.1-43.9); Red Blood Count 3.35 M/mm3 (4.2-5.4); White Blood Count 8.9 K/mm3 (4.4-11.0)
[2017-09-14 07:15] LABS: POSITIVE COUNT NO; POSITIVE DIFFERENTIAL NO; POSITIVE MORPHOLOGY NO
[2017-09-14] MEDS: Ipratropium/Albuterol Sulfate 3 ML AMPUL.NEB INHALATION ×3 (07:24→18:51)
[2017-09-14 07:34] LABS: Anion Gap 8 (5-15); BUN 7 mg/dL (7-18); BUN/Creat Ratio 12.3 RATIO (10-20); Calcium,Total 7.9 mg/dL (8.5-10.1); Chloride 113 mmol/L (98-107); Creatinine, Serum 0.57 mg/dL (0.55-1.02); EST Glomerular Filtration Rate 110 mL/min (>60); Est Glom Filt Rate - Afr Amer 133 mL/min (>60); Estimated Creatinine Clearance 39.04 ml/min; Glucose 113 mg/dL (74-106); Potassium 3.9 mmol/L (3.5-5.1); Sodium Level 144 mmol/L (136-145)
[2017-09-14] MEDS: Metoprolol Tartrate 50 MG Tablet PO ×2 (09:33→21:43)
[2017-09-14] MEDS: DULoxetine Hcl 60 MG Capsule PO (09:33)
[2017-09-14] MEDS: NIFEdipine 30 MG Tablet PO (09:35)
[2017-09-14] MEDS: Enoxaparin 40 MG/0.4 ML Syringe SC (09:35)
[2017-09-14] MEDS: Ceftriaxone 1 GM/50 ML BAG IV ×2 (09:35→21:43)
--- NOTE | 2017-09-14 10:16 | CT_ITS ---
STUDY: CTA CHEST REASON FOR EXAM: Female, 76 years old. Cough/fever and shortness of breath. RADIATION DOSAGE (If Supplied By Facility): CTDIvol = ( 8.25 ) mGy, DLP = ( 272.11 ) mGycm TECHNIQUE: The examination was performed with the intravenous administration of 75ML ml of Isovue 370 contrast material. Post-processing of the angiographic images was performed, with multiplanar reformation and 3D reconstruction. Individualized dose optimization techniques were used for this CT. COMPARISON: Comparison is made with prior study dated November 16, 2016. FINDINGS: Normal enhancement of the main pulmonary artery and right and left pulmonary arteries. Normal enhancement of the bilateral peripheral pulmonary arteries. There is no demonstrated pulmonary embolism. Normal thoracic aorta and visualized great vessels. There is no demonstrated aortic dissection. There are calcifications of the coronary arteries. Normal mediastinum. Normal hilar regions. Normal visualized trachea and bronchi. The lungs are well expanded. Since prior examination, there has been progressive inhomogeneous infiltration in the lateral aspect of the left lower lobe. This may represent new pneumonic infiltrate on the chronic scarring. Focal soft tissue densities are seen along the lateral aspect of the lingular segment of the left upper lobe. Follow-up is recommended. Correlation with a PET scan is recommended as well. Mild increased markings in the posterior medial segment of the right lower lobe. This most likely presents scarring. This is essentially unchanged. Normal chest wall structures. Normal osseous structures. A filter is seen within the inferior vena cava. Large hiatal hernia. CT/CTA Chest W/WO Contrast IMPRESSION: There is no evidence of pulmonary is in the Progressive infiltration in the left lower lobe as described suggestive of a new infiltrate on chronic scarring. Radiographic follow-up is recommended. Correlation with a PET scan is recommended following treatment. Large hiatal hernia. Electronically Signed: Adilson Golden MD at 12:41 EDT Tel [phone], Service support ,
--- NOTE | 2017-09-14 11:30 | CASEMGMT ---
ERIC DELGADO Face to Face with patient for initial transition planning/care coordination assessment. ERIC DELGADO introduced self and role at [facility]. Patient lying in bed, alert and oriented. Patient willing to participate in assessment and is able to answer all questions appropriately. Care providers, pharmacy, and demographics verified. See link attached. Patient wishes to discharge home, denies need for home health at this time. Patient states that she was recently dropped by PCP Dr. Hobson for missing 2 appts. ERIC DELGADO attempted to call Dr. Hobson's office to establish care again. ERIC DELGADO gave list of local PCPs to patient. Pt states she has no further needs or concerns at this time. CM to follow for discharge planning needs that may arise. Disposition Plan: Paitent to discharge home with family support and follow-up plans in place. Will monitor for home oxygen
[2017-09-14] MEDS: 0.9% NaCl Peripheral Flush Adult/Peds IV (12:04)
[2017-09-14] MEDS: traMADol 50 MG Tablet 100 MG PO ×2 (14:45→22:45)
--- NOTE | 2017-09-14 15:40 | CHAPLAIN ---
Type of Pastoral Visit _x__ Initial Visit ___ Follow-up Visit ___ On-call Visit ___ General Patient Visit ___ Spiritual Assessment ___ Family Conference ___ Bereavement ___ Rapid Response ___ Code Blue ___ Other (describe below) Pastoral Care Referral From _x__ Patient ___ Family ___ Nurse ___ Physician ___ Survey Chief ___ Towel Sewer ___ Other (describe below) Sacrament/Intervention _x__ Active listening ___ Anointing ___ Gnosticism ___ Bereavement ___ Communion ___ Lesly exploration ___ ___ Life review _x__ Prayer ___ Reconciliation ___ Sacrament of Sick ___ Supportive presence ___ Wedding ___ Other (describe below) Pastoral Comments
--- NOTE | 2017-09-14 16:28 | PCM.PN.HOSP ---
Subjective: CC: Left-sided chest pain. Objective: Patient complains of left-sided chest pain and shortness of breath, scan of the chest done today demonstrate left lobe opacity . She reports no fever, chills or hemoptysis. Vitals/I&O's: Vital Signs Temp Pulse Resp BP Pulse Ox 98.3 F 84 16 135/67 H 95 09/14/17 15:20 09/14/17 15:46 09/14/17 15:20 09/14/17 15:20 09/14/17 15:20 Oxygen Flow Rate (L/min) 2 Oxygen Delivery Method Room Air Weight: 66.5 kg Body Mass Index (BMI) 26.8 Intake and Output for Last 24 Hours 09/12/17 09/13/17 09/14/17 23:59 23:59 23:59 Intake Total 709 / 709 1232 / 1232 Output Total 250 / 250 Balance 709 / 709 982 / 982 General: Alert, Oriented x3 Oral: Moist Mucosa Neck: Supple, No JVD Lungs: Clear to auscultation Cardiovascular: Regular rate, Normal S1, Normal S2 Abdomen: Bowel Sounds Present, Soft, Non Tender Extremities: No clubbing Neurological: Cranial nerves II-XII grossly intact, Motor Exam 5/5 strength throughout Microbiology Past 72 Hours 09/13/17 22:00 Mucosa - Throat Group A Streptococcus Rapid Screen - Preliminary 09/14/17 00:45 Mucosa - Nasopharyngeal Respiratory Panel (PCR) - Final 09/14/17 01:45 Interface Orders Streptococcus pneumoniae Antigen (M - Final 09/14/17 01:45 Interface Orders Legionella Antigen - Final Laboratory Results 09/13/17 21:43: Lactic Acid 2.3 H 09/14/17 01:45: Urine Color Yellow, Urine Clarity Clear, Urine pH 7.0, Ur Specific [place] 1.005, Urine Protein Negative, Urine Glucose (UA) Normal, Urine Ketones Negative, Urine Occult Blood Negative, Urine Nitrite Negative, Urine Bilirubin Negative, Urine Urobilinogen Normal, Ur Leukocyte Esterase 100 H 09/14/17 05:45: WBC 8.9, RBC 3.35 L, Hgb 8.2 L, Hct 26.5 L, MCV 79.1 L, MCH 24.5 L, MCHC 30.9 L, RDW 17.3 H, RDW Differential 50.3 H, Plt Count 222, MPV 9.0, Immature Gran % (Auto) 0.400, Neut % (Auto) 73.0 H, Lymph % (Auto) 12.5 L, [place] % (Auto) 12.7 H, Eos % (Auto) 1.2, Baso % (Auto) 0.2, Absolute Neuts (auto) 6.5, Absolute Lymphs (auto) 1.11, Total Counted Not Reportable 09/14/17 05:45: Sodium 144, Potassium 3.9, Chloride 113 H, Carbon Dioxide 23.0, Anion Gap 8, BUN 7, Creatinine 0.57, Estim Creat Clear Calc 39.04, Est GFR (MDRD) Af Amer 133, Est GFR (MDRD) Non-Af 110, BUN/Creatinine Ratio 12.3, Glucose 113 H, Calcium 7.9 L Current Medications Acetaminophen (Tylenol) 650 mg PO Q6H PRN PRN PRN Reason: FEVER Last Admin: 09/14/17 14:45 Dose: 650 mg Albuterol/Ipratropium (Duoneb) 3 ml INHALATION Q6H.RT [facility] Last Admin: 09/14/17 12:52 Dose: 3 ml Duloxetine HCl (Cymbalta) 60 mg PO BREAKFAST [facility] Last Admin: 09/14/17 09:33 Dose: 60 mg Enoxaparin Sodium (Lovenox) 40 mg SC DAILY@1000 GAMALIEL Last Admin: 09/14/17 09:35 Dose: 40 mg Guaifenesin (Robitussin) 10 ml PO Q6H PRN PRN PRN Reason: COUGH/CONGESTION Last Admin: 09/14/17 12:09 Dose: 10 ml Azithromycin 500 mg/ Dextrose 255 mls @ 250 mls/hr IV Q24 [facility] Stop: 09/16/17 11:02 Last Admin: 09/14/17 12:04 Dose: 250 mls/hr Ceftriaxone Sodium (Rocephin) 1 gm in 50 mls @ 100 mls/hr IV Q12 [facility] Last Admin: 09/14/17 09:35 Dose: 100 mls/hr Potassium Chloride/Sodium Chloride () 1,000 mls @ 100 mls/hr IV .Q10H [facility] Last Admin: 09/14/17 06:45 Dose: 100 mls/hr Lorazepam (Ativan) 2 mg PO QHS [facility] Last Admin: 09/13/17 22:01 Dose: 2 mg Magnesium Hydroxide (Milk Of Magnesia) 30 ml PO DAILY PRN PRN Reason: Constipation Metoprolol Tartrate (Lopressor (Beta Ivelisse)) 50 mg PO BID [facility] Last Admin: 09/14/17 09:33 Dose: 50 mg Nifedipine (Procardia Xl) 30 mg PO DAILY [facility] Last Admin: 09/14/17 09:35 Dose: 30 mg Ondansetron HCl (Zofran) 4 mg IV Q8H PRN PRN PRN Reason: NAUSEA Sodium Chloride () 5 - 30 ml IV UD PRN PRN Reason: SALINE FLUSH Last Admin: 09/14/17 12:04 Dose: 20 ml Tramadol HCl (Ultram) 100 mg PO BID PRN PRN PRN Reason: PAIN Last Admin: 09/14/17 14:45 Dose: 100 mg Zolpidem Tartrate (Ambien (Generic)) 5 mg PO QHS PRN PRN PRN Reason: INSOMNIA Medical Necessity - Tobacco Use Smoking Status: Former smoker Assessment/Plan All Active Problems (Last Updated 09/13/17 @ 18:56 by Kai Hutchison MD) Delirium, acute (Resolved) History of deep venous thrombosis or pulmonary embolus (Resolved) History of pulmonary embolism (Resolved) UTI (urinary tract infection) (Resolved) 1. Community acquired pneumonia; will continue on IV Zithromax and Rocephin. 2. early sepsis; she remains clinically stable. 3. hypertension; this is controlled. 3 chronic anemia; we susy monitor hemoglobin closely. 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 She is currently not on anticoagulation therapy. 5 GERD; she is on a PPI. 6 anxiety; we will continue as needed Ativan . 7 DVT prophylaxis with Lovenox. Code Visit Inpatient E&M: 81105 Subs Hosp L2
--- NOTE | 2017-09-14 16:32 | PN_ITS ---
Subjective: CC: Left-sided chest pain. Objective: Patient complains of left-sided chest pain and shortness of breath, scan of the chest done today demonstrate left lobe opacity . She reports no fever, chills or hemoptysis. Vitals/I&O's: Vital Signs Temp Pulse Resp BP Pulse Ox 98.3 F 84 16 135/67 H 95 09/14/17 15:20 09/14/17 15:46 09/14/17 15:20 09/14/17 15:20 09/14/17 15:20 Oxygen Flow Rate (L/min) 2 Oxygen Delivery Method Room Air Weight: 66.5 kg Body Mass Index (BMI) 26.8 Intake and Output for Last 24 Hours 09/12/17 09/13/17 09/14/17 23:59 23:59 23:59 Intake Total 709 / 709 1232 / 1232 Output Total 250 / 250 Balance 709 / 709 982 / 982 General: Alert, Oriented x3 Oral: Moist Mucosa Neck: Supple, No JVD Lungs: Clear to auscultation Cardiovascular: Regular rate, Normal S1, Normal S2 Abdomen: Bowel Sounds Present, Soft, Non Tender Extremities: No clubbing Neurological: Cranial nerves II-XII grossly intact, Motor Exam 5/5 strength throughout Microbiology Past 72 Hours 09/13/17 22:00 Mucosa - Throat Group A Streptococcus Rapid Screen - Preliminary 09/14/17 00:45 Mucosa - Nasopharyngeal Respiratory Panel (PCR) - Final 09/14/17 01:45 Interface Orders Streptococcus pneumoniae Antigen (M - Final 09/14/17 01:45 Interface Orders Legionella Antigen - Final Laboratory Results 09/13/17 21:43: Lactic Acid 2.3 H 09/14/17 01:45: Urine Color Yellow, Urine Clarity Clear, Urine pH 7.0, Ur Specific [place] 1.005, Urine Protein Negative, Urine Glucose (UA) Normal, Urine Ketones Negative, Urine Occult Blood Negative, Urine Nitrite Negative, Urine Bilirubin Negative, Urine Urobilinogen Normal, Ur Leukocyte Esterase 100 H 09/14/17 05:45: WBC 8.9, RBC 3.35 L, Hgb 8.2 L, Hct 26.5 L, MCV 79.1 L, MCH 24.5 L, MCHC 30.9 L, RDW 17.3 H, RDW Differential 50.3 H, Plt Count 222, MPV 9.0 , Immature Gran % (Auto) 0.400, Neut % (Auto) 73.0 H, Lymph % (Auto) 12.5 L, [place] % (Auto) 12.7 H, Eos % (Auto) 1.2, Baso % (Auto) 0.2, Absolute Neuts (auto ) 6.5, Absolute Lymphs (auto) 1.11, Total Counted Not Reportable 09/14/17 05:45: Sodium 144, Potassium 3.9, Chloride 113 H, Carbon Dioxide 23.0, Anion Gap 8, BUN 7, Creatinine 0.57, Estim Creat Clear Calc 39.04, Est GFR (MDRD ) Af Amer 133, Est GFR (MDRD) Non-Af 110, BUN/Creatinine Ratio 12.3, Glucose 113 H, Calcium 7.9 L Current Medications Acetaminophen (Tylenol) 650 mg PO Q6H PRN PRN PRN Reason: FEVER Last Admin: 09/14/17 14:45 Dose: 650 mg Albuterol/Ipratropium (Duoneb) 3 ml INHALATION Q6H.RT [facility] Last Admin: 09/14/17 12:52 Dose: 3 ml Duloxetine HCl (Cymbalta) 60 mg PO BREAKFAST [facility] Last Admin: 09/14/17 09:33 Dose: 60 mg Enoxaparin Sodium (Lovenox) 40 mg SC DAILY@1000 GAMALIEL Last Admin: 09/14/17 09:35 Dose: 40 mg Guaifenesin (Robitussin) 10 ml PO Q6H PRN PRN PRN Reason: COUGH/CONGESTION Last Admin: 09/14/17 12:09 Dose: 10 ml Azithromycin 500 mg/ Dextrose 255 mls @ 250 mls/hr IV Q24 [facility] Stop: 09/16/17 11:02 Last Admin: 09/14/17 12:04 Dose: 250 mls/hr Ceftriaxone Sodium (Rocephin) 1 gm in 50 mls @ 100 mls/hr IV Q12 [facility] Last Admin: 09/14/17 09:35 Dose: 100 mls/hr Potassium Chloride/Sodium Chloride () 1,000 mls @ 100 mls/hr IV .Q10H [facility] Last Admin: 09/14/17 06:45 Dose: 100 mls/hr Lorazepam (Ativan) 2 mg PO QHS [facility] Last Admin: 09/13/17 22:01 Dose: 2 mg Magnesium Hydroxide (Milk Of Magnesia) 30 ml PO DAILY PRN PRN Reason: Constipation Metoprolol Tartrate (Lopressor (Beta Ivelisse)) 50 mg PO BID [facility] Last Admin: 09/14/17 09:33 Dose: 50 mg Nifedipine (Procardia Xl) 30 mg PO DAILY [facility] Last Admin: 09/14/17 09:35 Dose: 30 mg Ondansetron HCl (Zofran) 4 mg IV Q8H PRN PRN PRN Reason: NAUSEA Sodium Chloride () 5 - 30 ml IV UD PRN PRN Reason: SALINE FLUSH Last Admin: 09/14/17 12:04 Dose: 20 ml Tramadol HCl (Ultram) 100 mg PO BID PRN PRN PRN Reason: PAIN Last Admin: 09/14/17 14:45 Dose: 100 mg Zolpidem Tartrate (Ambien (Generic)) 5 mg PO QHS PRN PRN PRN Reason: INSOMNIA Medical Necessity - Tobacco Use Smoking Status: Former smoker Assessment/Plan All Active Problems (Last Updated 09/13/17 @ 18:56 by Kai Hutchison MD) Delirium, acute (Resolved) History of deep venous thrombosis or pulmonary embolus (Resolved) History of pulmonary embolism (Resolved) UTI (urinary tract infection) (Resolved) 1. Community acquired pneumonia; will continue on IV Zithromax and Rocephin. 2. early sepsis; she remains clinically stable. 3. hypertension; this is controlled. 3 chronic anemia; we susy monitor hemoglobin closely. 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 She is currently not on anticoagulation therapy. 5 GERD; she is on a PPI. 6 anxiety; we will continue as needed Ativan . 7 DVT prophylaxis with Lovenox. Code Visit Inpatient E&M: 31865 Subs Hosp L2
[2017-09-14] MEDS: LORazepam 1 MG Tablet 2 MG PO (21:43)
[2017-09-15] VITALS (16 sets, daily range): BP systolic 123–155; BP diastolic 71–84; PULSE 58–110; RESP 16–20; TEMP 36.7–36.9; O2SAT 93–99
[2017-09-15] MEDS: Ipratropium/Albuterol Sulfate 3 ML AMPUL.NEB INHALATION ×3 (06:58→19:00)
[2017-09-15] MEDS: Metoprolol Tartrate 50 MG Tablet PO ×2 (08:27→22:16)
[2017-09-15] MEDS: DULoxetine Hcl 60 MG Capsule PO (08:27)
[2017-09-15] MEDS: NIFEdipine 30 MG Tablet PO (08:27)
[2017-09-15] MEDS: traMADol 50 MG Tablet 100 MG PO ×2 (08:31→22:17)
[2017-09-15] MEDS: Ceftriaxone 1 GM/50 ML BAG IV ×2 (10:16→22:16)
[2017-09-15] MEDS: Enoxaparin 40 MG/0.4 ML Syringe SC (10:17)
[2017-09-15 12:26] LABS: Bedside Glucose 127 mg/dL (70-110)
--- NOTE | 2017-09-15 12:41 | PCM.PN.HOSP ---
Subjective: CC: Shortness of breath and cough Objective: The patient reports improved breathing has significant cough and wheezing. She denies any fever or chills. Vitals/I&O's: Vital Signs Temp Pulse Resp BP Pulse Ox 98.5 F 96 18 144/71 H 95 09/15/17 08:07 09/15/17 08:27 09/15/17 08:07 09/15/17 08:27 09/15/17 08:07 Oxygen Flow Rate (L/min) 2 Oxygen Delivery Method Room Air Weight: 66.5 kg Body Mass Index (BMI) 26.8 Intake and Output for Last 24 Hours 09/13/17 09/14/17 09/15/17 23:59 23:59 23:59 Intake Total 709 / 709 2545 / 2545 1878 / 1878 Output Total 1350 / 1350 400 / 400 Balance 709 / 709 1195 / 1195 1478 / 1478 General: Alert, Oriented x3 HEENT: Atraumatic Oral: Moist Mucosa Lungs: Clear to auscultation, Wheezes Cardiovascular: Regular rate, Normal S1, Normal S2 Abdomen: Bowel Sounds Present, Soft, Non Tender Extremities: No edema Neurological: Deep Tendon Reflexes 2+/4 and Symmetrical, Motor Exam 5/5 strength throughout Microbiology Past 72 Hours 09/13/17 22:00 Mucosa - Throat Group A Streptococcus Rapid Screen - Final 09/14/17 00:45 Mucosa - Nasopharyngeal Respiratory Panel (PCR) - Final 09/14/17 01:45 Interface Orders Streptococcus pneumoniae Antigen (M - Final 09/14/17 01:45 Interface Orders Legionella Antigen - Final Laboratory Results 09/15/17 11:42: POC Glucose 127 H Current Medications Acetaminophen (Tylenol) 650 mg PO Q6H PRN PRN PRN Reason: FEVER Last Admin: 09/14/17 14:45 Dose: 650 mg Albuterol/Ipratropium (Duoneb) 3 ml INHALATION Q6H.RT [facility] Last Admin: 09/15/17 06:58 Dose: 3 ml Duloxetine HCl (Cymbalta) 60 mg PO BREAKFAST [facility] Last Admin: 09/15/17 08:27 Dose: 60 mg Enoxaparin Sodium (Lovenox) 40 mg SC DAILY@1000 [facility] Last Admin: 09/15/17 10:17 Dose: 40 mg Guaifenesin (Robitussin) 10 ml PO Q6H PRN PRN PRN Reason: COUGH/CONGESTION Last Admin: 09/14/17 22:45 Dose: 10 ml Azithromycin 500 mg/ Dextrose 255 mls @ 250 mls/hr IV Q24 [facility] Stop: 09/16/17 11:02 Last Admin: 09/15/17 11:43 Dose: 250 mls/hr Ceftriaxone Sodium (Rocephin) 1 gm in 50 mls @ 100 mls/hr IV Q12 [facility] Last Admin: 09/15/17 10:16 Dose: 100 mls/hr Potassium Chloride/Sodium Chloride () 1,000 mls @ 100 mls/hr IV .Q10H [facility] Last Admin: 09/15/17 05:52 Dose: 100 mls/hr Lorazepam (Ativan) 2 mg PO QHS [facility] Last Admin: 09/14/17 21:43 Dose: 2 mg Magnesium Hydroxide (Milk Of Magnesia) 30 ml PO DAILY PRN PRN Reason: Constipation Methylprednisolone (Solu-Medrol) 40 mg IV Q8 [facility] Metoprolol Tartrate (Lopressor (Beta Ivelisse)) 50 mg PO BID [facility] Last Admin: 09/15/17 08:27 Dose: 50 mg Nifedipine (Procardia Xl) 30 mg PO DAILY [facility] Last Admin: 09/15/17 08:27 Dose: 30 mg Ondansetron HCl (Zofran) 4 mg IV Q8H PRN PRN PRN Reason: NAUSEA Sodium Chloride () 5 - 30 ml IV UD PRN PRN Reason: SALINE FLUSH Last Admin: 09/14/17 12:04 Dose: 20 ml Tramadol HCl (Ultram) 100 mg PO BID PRN PRN PRN Reason: PAIN Last Admin: 09/15/17 08:31 Dose: 100 mg Zolpidem Tartrate (Ambien (Generic)) 5 mg PO QHS PRN PRN PRN Reason: INSOMNIA Medical Necessity - Tobacco Use Smoking Status: Former smoker Assessment/Plan All Active Problems (Last Updated 09/13/17 @ 18:56 by Kai Hutchison MD) Delirium, acute (Resolved) History of deep venous thrombosis or pulmonary embolus (Resolved) History of pulmonary embolism (Resolved) UTI (urinary tract infection) (Resolved) 1. Community acquired pneumonia; will continue on IV Zithromax and Rocephin. 2. Early sepsis; resolved. 3. acute Bronchitis will start the patient on IV steroids. 4. hypertension; this is controlled. 5. chronic anemia; we will monitor hemoglobin closely. 6 history of DVT/PE: Status post IVC. She is currently not on anticoagulation therapy. 7. GERD; she is on a PPI. 8 anxiety; we will continue as needed Ativan . 9 DVT prophylaxis with Lovenox. Code Visit Inpatient E&M: 12085 Subs Hosp L2
--- NOTE | 2017-09-15 12:49 | PN_ITS ---
Subjective: CC: Shortness of breath and cough Objective: The patient reports improved breathing has significant cough and wheezing. She denies any fever or chills. Vitals/I&O's: Vital Signs Temp Pulse Resp BP Pulse Ox 98.5 F 96 18 144/71 H 95 09/15/17 08:07 09/15/17 08:27 09/15/17 08:07 09/15/17 08:27 09/15/17 08:07 Oxygen Flow Rate (L/min) 2 Oxygen Delivery Method Room Air Weight: 66.5 kg Body Mass Index (BMI) 26.8 Intake and Output for Last 24 Hours 09/13/17 09/14/17 09/15/17 23:59 23:59 23:59 Intake Total 709 / 709 2545 / 2545 1878 / 1878 Output Total 1350 / 1350 400 / 400 Balance 709 / 709 1195 / 1195 1478 / 1478 General: Alert, Oriented x3 HEENT: Atraumatic Oral: Moist Mucosa Lungs: Clear to auscultation, Wheezes Cardiovascular: Regular rate, Normal S1, Normal S2 Abdomen: Bowel Sounds Present, Soft, Non Tender Extremities: No edema Neurological: Deep Tendon Reflexes 2+/4 and Symmetrical, Motor Exam 5/5 strength throughout Microbiology Past 72 Hours 09/13/17 22:00 Mucosa - Throat Group A Streptococcus Rapid Screen - Final 09/14/17 00:45 Mucosa - Nasopharyngeal Respiratory Panel (PCR) - Final 09/14/17 01:45 Interface Orders Streptococcus pneumoniae Antigen (M - Final 09/14/17 01:45 Interface Orders Legionella Antigen - Final Laboratory Results 09/15/17 11:42: POC Glucose 127 H Current Medications Acetaminophen (Tylenol) 650 mg PO Q6H PRN PRN PRN Reason: FEVER Last Admin: 09/14/17 14:45 Dose: 650 mg Albuterol/Ipratropium (Duoneb) 3 ml INHALATION Q6H.RT [facility] Last Admin: 09/15/17 06:58 Dose: 3 ml Duloxetine HCl (Cymbalta) 60 mg PO BREAKFAST [facility] Last Admin: 09/15/17 08:27 Dose: 60 mg Enoxaparin Sodium (Lovenox) 40 mg SC DAILY@1000 [facility] Last Admin: 09/15/17 10:17 Dose: 40 mg Guaifenesin (Robitussin) 10 ml PO Q6H PRN PRN PRN Reason: COUGH/CONGESTION Last Admin: 09/14/17 22:45 Dose: 10 ml Azithromycin 500 mg/ Dextrose 255 mls @ 250 mls/hr IV Q24 [facility] Stop: 09/16/17 11:02 Last Admin: 09/15/17 11:43 Dose: 250 mls/hr Ceftriaxone Sodium (Rocephin) 1 gm in 50 mls @ 100 mls/hr IV Q12 [facility] Last Admin: 09/15/17 10:16 Dose: 100 mls/hr Potassium Chloride/Sodium Chloride () 1,000 mls @ 100 mls/hr IV .Q10H [facility] Last Admin: 09/15/17 05:52 Dose: 100 mls/hr Lorazepam (Ativan) 2 mg PO QHS [facility] Last Admin: 09/14/17 21:43 Dose: 2 mg Magnesium Hydroxide (Milk Of Magnesia) 30 ml PO DAILY PRN PRN Reason: Constipation Methylprednisolone (Solu-Medrol) 40 mg IV Q8 [facility] Metoprolol Tartrate (Lopressor (Beta Ivelisse)) 50 mg PO BID [facility] Last Admin: 09/15/17 08:27 Dose: 50 mg Nifedipine (Procardia Xl) 30 mg PO DAILY [facility] Last Admin: 09/15/17 08:27 Dose: 30 mg Ondansetron HCl (Zofran) 4 mg IV Q8H PRN PRN PRN Reason: NAUSEA Sodium Chloride () 5 - 30 ml IV UD PRN PRN Reason: SALINE FLUSH Last Admin: 09/14/17 12:04 Dose: 20 ml Tramadol HCl (Ultram) 100 mg PO BID PRN PRN PRN Reason: PAIN Last Admin: 09/15/17 08:31 Dose: 100 mg Zolpidem Tartrate (Ambien (Generic)) 5 mg PO QHS PRN PRN PRN Reason: INSOMNIA Medical Necessity - Tobacco Use Smoking Status: Former smoker Assessment/Plan All Active Problems (Last Updated 09/13/17 @ 18:56 by Kai Hutchison MD) Delirium, acute (Resolved) History of deep venous thrombosis or pulmonary embolus (Resolved) History of pulmonary embolism (Resolved) UTI (urinary tract infection) (Resolved) 1. Community acquired pneumonia; will continue on IV Zithromax and Rocephin. 2. Early sepsis; resolved. 3. acute Bronchitis will start the patient on IV steroids. 4. hypertension; this is controlled. 5. chronic anemia; we will monitor hemoglobin closely. 6 history of DVT/PE: Status post IVC. She is currently not on anticoagulation therapy. 7. GERD; she is on a PPI. 8 anxiety; we will continue as needed Ativan . 9 DVT prophylaxis with Lovenox. Code Visit Inpatient E&M: 45695 Subs Hosp L2
[2017-09-15] MEDS: Acetaminophen 325 MG Tablet 650 MG PO (15:34)
[2017-09-15] MEDS: 0.9% NaCl Peripheral Flush Adult/Peds IV ×4 (15:34→22:17)
[2017-09-15] MEDS: LORazepam 1 MG Tablet 2 MG PO (22:16)
[2017-09-15] MEDS: guaiFENesin 10 ML UDC (200MG/10ML) PO (22:17)
[2017-09-15] MEDS: Zolpidem Tartrate 5 MG Tablet PO (22:17)
[2017-09-16] VITALS (17 sets, daily range): BP systolic 151–164; BP diastolic 71–82; PULSE 73–106; RESP 16–18; TEMP 36.6–36.8; O2SAT 94–99
[2017-09-16] MEDS: Ipratropium/Albuterol Sulfate 3 ML AMPUL.NEB INHALATION ×3 (07:03→18:50)
[2017-09-16] MEDS: Metoprolol Tartrate 50 MG Tablet PO ×2 (08:06→22:16)
[2017-09-16] MEDS: Enoxaparin 40 MG/0.4 ML Syringe SC (08:06)
[2017-09-16] MEDS: DULoxetine Hcl 60 MG Capsule PO (08:06)
[2017-09-16] MEDS: NIFEdipine 30 MG Tablet PO (08:07)
[2017-09-16] MEDS: Ceftriaxone 1 GM/50 ML BAG IV ×2 (10:48→22:16)
[2017-09-16] MEDS: traMADol 50 MG Tablet 100 MG PO ×2 (11:43→18:20)
--- NOTE | 2017-09-16 13:15 | PN_ITS ---
Subjective: CC: Shortness of breath and cough Objective: The patient has improved but still has significant dyspnea and cough, has a hoarse voice, denies any fever or chills. She reports generalized weakness. Vitals/I&O's: Vital Signs Temp Pulse Resp BP Pulse Ox 97.9 F 82 17 151/71 H 99 09/16/17 11:52 09/16/17 11:52 09/16/17 11:52 09/16/17 11:52 09/16/17 11:52 Oxygen Flow Rate (L/min) 2 Oxygen Delivery Method Room Air Weight: 66.5 kg Body Mass Index (BMI) 26.8 Intake and Output for Last 24 Hours 09/14/17 09/15/17 09/16/17 23:59 23:59 23:59 Intake Total 2545 / 2545 3727.7 / 3727.7 1832 / 1832 Output Total 1350 / 1350 1400 / 1400 800 / 800 Balance 1195 / 1195 2327.7 / 2327.7 1032 / 1032 General: Alert, Oriented x3 Oral: Moist Mucosa Neck: Supple Lungs: Wheezes Cardiovascular: Normal S1, Normal S2 Abdomen: Bowel Sounds Present, Non Tender Extremities: No edema Neurological: Cranial nerves II-XII grossly intact, Motor Exam 5/5 strength throughout Microbiology Past 72 Hours 09/13/17 22:00 Mucosa - Throat Group A Streptococcus Rapid Screen - Final 09/14/17 00:45 Mucosa - Nasopharyngeal Respiratory Panel (PCR) - Final 09/14/17 01:45 Interface Orders Streptococcus pneumoniae Antigen (M - Final 09/14/17 01:45 Interface Orders Legionella Antigen - Final Current Medications Acetaminophen (Tylenol) 650 mg PO Q6H PRN PRN PRN Reason: FEVER Last Admin: 09/15/17 15:34 Dose: 650 mg Albuterol/Ipratropium (Duoneb) 3 ml INHALATION Q6H.RT [facility] Last Admin: 09/16/17 07:03 Dose: 3 ml Duloxetine HCl (Cymbalta) 60 mg PO BREAKFAST [facility] Last Admin: 09/16/17 08:06 Dose: 60 mg Enoxaparin Sodium (Lovenox) 40 mg SC DAILY@1000 [facility] Last Admin: 09/16/17 08:06 Dose: 40 mg Guaifenesin (Robitussin) 10 ml PO Q6H PRN PRN PRN Reason: COUGH/CONGESTION Last Admin: 09/15/17 22:17 Dose: 10 ml Ceftriaxone Sodium (Rocephin) 1 gm in 50 mls @ 100 mls/hr IV Q12 [facility] Last Admin: 09/16/17 10:48 Dose: 100 mls/hr Potassium Chloride/Sodium Chloride () 1,000 mls @ 100 mls/hr IV .Q10H [facility] Last Admin: 09/16/17 06:27 Dose: 100 mls/hr Lorazepam (Ativan) 2 mg PO QHS [facility] Last Admin: 09/15/17 22:16 Dose: 2 mg Magnesium Hydroxide (Milk Of Magnesia) 30 ml PO DAILY PRN PRN Reason: Constipation Methylprednisolone (Solu-Medrol) 40 mg IV Q8 [facility] Last Admin: 09/16/17 06:26 Dose: 40 mg Metoprolol Tartrate (Lopressor (Beta Ivelisse)) 50 mg PO BID [facility] Last Admin: 09/16/17 08:06 Dose: 50 mg Nifedipine (Procardia Xl) 30 mg PO DAILY [facility] Last Admin: 09/16/17 08:07 Dose: 30 mg Ondansetron HCl (Zofran) 4 mg IV Q8H PRN PRN PRN Reason: NAUSEA Sodium Chloride () 5 - 30 ml IV UD PRN PRN Reason: SALINE FLUSH Last Admin: 09/15/17 22:17 Dose: 10 ml Tramadol HCl (Ultram) 100 mg PO BID PRN PRN PRN Reason: PAIN Last Admin: 09/16/17 11:43 Dose: 100 mg Zolpidem Tartrate (Ambien (Generic)) 5 mg PO QHS PRN PRN PRN Reason: INSOMNIA Last Admin: 09/15/17 22:17 Dose: 5 mg Medical Necessity - Tobacco Use Smoking Status: Former smoker Assessment/Plan All Active Problems (Last Updated 09/13/17 @ 18:56 by Kai Hutchison MD) Delirium, acute (Resolved) History of deep venous thrombosis or pulmonary embolus (Resolved) History of pulmonary embolism (Resolved) UTI (urinary tract infection) (Resolved) This is a 76 year-old female who presented to the ED with shortness of breath, cough and sputum production, she was found to have i left lung consolidation consistent with PNA, sepsis criteria was met on admission. She has improved with antibiotic therapy. 1. Community acquired pneumonia; we will continue on IV Zithromax and Rocephin for 1 more day and then transition to oral antibiotics. 2. Early sepsis; resolved. 3. acute Bronchitis; will continue on IV steroids and bronchodilators as ordered. 4. hypertension; this is controlled. 5. 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 She is currently not on anticoagulation therapy. 7. GERD; she is on a PPI. 8 anxiety; we will continue as needed Ativan . 9 generalized weakness; she does not feels she can go home due to profound weakness, she is unable to take care of her bedbound at home at this time, PT/OT, possible ECF placement. 10. DVT prophylaxis with Lovenox. Code Visit Inpatient E&M: 15282 Subs Hosp L2
[2017-09-16] MEDS: LORazepam 1 MG Tablet 2 MG PO (22:16)
[2017-09-16] MEDS: Zolpidem Tartrate 5 MG Tablet PO (22:16)
[2017-09-16] MEDS: 0.9% NaCl Peripheral Flush Adult/Peds IV (22:17)
[2017-09-17] MEDS: Acetaminophen 325 MG Tablet 650 MG PO (00:09)
[2017-09-20 16:05] LABS: Hematocrit 26.4 % (37-47); Mean Corp Hgb Conc 30.3 g/gl (32-36); Mean Corpuscular Hgb 25.2 pg (27.0-32.0); Mean Platelet Vol. 9.6 fl (6.2-12.0); POSITIVE COUNT NO; POSITIVE DIFFERENTIAL NO; POSITIVE MORPHOLOGY YES; Platelet Count 321 K/mm3 (150-450); RBC Distribution Width CV 17.6 % (11.6-14.6); RBC Distribution Width SD 51.6 fl (35.1-43.9); Red Blood Count 3.18 M/mm3 (4.2-5.4); White Blood Count 11.7 K/mm3 (4.4-11.0)
[2017-09-20 16:06] LABS: Absolute Neutrophil Count 10.3 X10^3/uL (2.0-7.7); Anisocytosis 1+; Atypical Lymphocyte 1+ %; Basophil# 0.01 X10^3/uL; Basophil% 0.1 % (0-1); Differential Indicated SCAN CRITERIA MET; Lymphocyte % 6.9 % (19-41); Monocyte# 0.54 X10^3/uL; Monocyte% 4.6 % (0-10); Neutrophil # 10.32 X10^3/uL (2.7-7.7); Neutrophil % 88.4 % (47-70)
[2017-09-21 11:41] LABS: Differential Indicated SCAN CRITERIA MET; Hematocrit 30.1 % (37-47); Hemoglobin 9.3 g/dl (12.0-15.0); Mean Corp Hgb Conc 30.9 g/gl (32-36); Mean Corpuscular Hgb 24.7 pg (27.0-32.0); Mean Corpuscular Volume 80.1 fL (81-99); Neutrophil % 77.4 % (47-70); POSITIVE COUNT NO; POSITIVE DIFFERENTIAL NO; POSITIVE MORPHOLOGY YES; Platelet Count 439 K/mm3 (150-450); RBC Distribution Width CV 17.4 % (11.6-14.6); RBC Distribution Width SD 49.5 fl (35.1-43.9); Red Blood Count 3.76 M/mm3 (4.2-5.4); White Blood Count 14.6 K/mm3 (4.4-11.0)
[2017-09-21 11:42] LABS: Absolute Lymphocyte Count 1.13 X10^3/ul (0.83-4.51); Absolute Neutrophil Count 11.3 X10^3/uL (2.0-7.7); Basophil% 0.7 % (0-1); Lymphocyte # 1.13 X10^3/ul (4.0); Lymphocyte % 7.7 % (19-41); Monocyte# 0.62 X10^3/uL; Monocyte% 4.2 % (0-10); Neutrophil # 11.33 X10^3/uL (2.7-7.7)
[2017-09-22 10:57] LABS: Iron 25 ug/dL (50-170); Iron Binding Capacity,Total 402 ug/dL (250-450); PERCENT IRON SATURATION 6.2 % (15.0-55.0)
--- NOTE | 2017-09-25 11:15 | PCM.DC.SUM ---
Discharge Date and Diagnosis Date of Admission: 09/13/17 Date of Discharge: 09/19/17 - Primary Discharge Diagnosis #1 left lower lobe community-acquired pneumonia-suspected to be secondary to gram-positive bacteria #2 hypokalemia #3 iron deficiency anemia #4 depression #5 hypertension #6 debility #7 hypoxia - Secondary Discharge Diagnosis Chronic Problems (Last Updated 09/13/17 @ 18:56 by Kai Hutchison MD) Presence of IVC filter (Chronic) h/o DVT/PE History of GI bleed (Chronic) Anxiety (Chronic) GERD (gastroesophageal reflux disease) (Chronic) Hypertension (Chronic) Hyperglycemia (Chronic) no hx of DM Chronic back pain (Chronic) Hiatal hernia (Chronic) Polysubstance dependence (Chronic) Insomnia (Chronic) DVT (deep venous thrombosis) (Chronic) Pulmonary embolism (Chronic) Iron deficiency anemia (Chronic) Hospital Course and Treatment Operations: None Procedures: None Summary of Care Provided: The patient is a 76 year old F who was seen in the emergency room at [facility] with chief complaint of shortness of breath and generalized weakness. Workup in the emergency room showed the patient's white count to be slightly elevated, chest x-ray was obtained which showed a left lower lobe infiltrate, patient's pulse ox in the emergency room was slightly low and she was placed on supple oxygen. Patient was admitted to PCU, she was given supplemental potassium replacement due to low potassium, and placed on IV antibiotics and aerosol treatments. Cultures obtained and urinary antigens obtained for pneumonia were all negative. Patient had iron studies performed which showed that she had iron deficiency anemia and she was given IV Venofer. Patient was seen by PT and OT who recommended placement in a [facility] facility for further care at discharge from the hospital. On 09/19/17, patient was seen and examined felt to be in stable condition for transfer to local extended care facility for further snf Medications: Medications to take at Discharge Duloxetine HCl 60 mg PO BREAKFAST #30 01/12/17 Lorazepam [Ativan] 2 mg PO QHS #14 01/12/17 NIFEdipine [Procardia Xl] 30 mg PO DAILY #15 01/12/17 Metoprolol Tartrate [Lopressor (beta julieth)] 50 mg PO BID 06/06/17 Tramadol HCl [Ultram] 100 mg PO BID PRN PRN 08/09/17 Furosemide [Lasix] 20 mg PO DAILY 09/13/17 proMETHazine/codeine soln [Phenergan with Codeine oral solution] 5 ml PO Q6H PRN PRN #120 ml 09/13/17 Primary Care Physician: Care Physician,No Primary [Primary Care Provider] - Disposition: [facility] facility Minutes spent on discharge:: 32 Patient Condition:: Stable Medical Necessity - Tobacco Use Smoking Status: Former smoker Meaningful Use Info Meaningful Use Diagnoses (Choose all that apply): None applicable Code Visit Inpatient E&M: 07466 Disch Hosp
--- NOTE | 2017-09-25 11:18 | DS.PCM_ITS ---
Discharge Date and Diagnosis Date of Admission: 09/13/17 Date of Discharge: 09/19/17 - Primary Discharge Diagnosis #1 left lower lobe community-acquired pneumonia-suspected to be secondary to gram-positive bacteria #2 hypokalemia #3 iron deficiency anemia #4 depression #5 hypertension #6 debility #7 hypoxia - Secondary Discharge Diagnosis Chronic Problems (Last Updated 09/13/17 @ 18:56 by Kai Hutchison MD) Presence of IVC filter (Chronic) h/o DVT/PE History of GI bleed (Chronic) Anxiety (Chronic) GERD (gastroesophageal reflux disease) (Chronic) Hypertension (Chronic) Hyperglycemia (Chronic) no hx of DM Chronic back pain (Chronic) Hiatal hernia (Chronic) Polysubstance dependence (Chronic) Insomnia (Chronic) DVT (deep venous thrombosis) (Chronic) Pulmonary embolism (Chronic) Iron deficiency anemia (Chronic) Hospital Course and Treatment Operations: None Procedures: None Summary of Care Provided: The patient is a 76 year old F who was seen in the emergency room at [facility] with chief complaint of shortness of breath and generalized weakness. Workup in the emergency room showed the patient's white count to be slightly elevated, chest x-ray was obtained which showed a left lower lobe infiltrate, patient's pulse ox in the emergency room was slightly low and she was placed on supple oxygen. Patient was admitted to PCU, she was given supplemental potassium replacement due to low potassium, and placed on IV antibiotics and aerosol treatments. Cultures obtained and urinary antigens obtained for pneumonia were all negative. Patient had iron studies performed which showed that she had iron deficiency anemia and she was given IV Venofer. Patient was seen by PT and OT who recommended placement in a senior care facility for further care at discharge from the hospital. On 09/19/17, patient was seen and examined felt to be in stable condition for transfer to local extended care facility for further longterm Medications: Medications to take at Discharge Duloxetine HCl 60 mg PO BREAKFAST #30 01/12/17 Lorazepam [Ativan] 2 mg PO QHS #14 01/12/17 NIFEdipine [Procardia Xl] 30 mg PO DAILY #15 01/12/17 Metoprolol Tartrate [Lopressor (beta julieth)] 50 mg PO BID 06/06/17 Tramadol HCl [Ultram] 100 mg PO BID PRN PRN 08/09/17 Furosemide [Lasix] 20 mg PO DAILY 09/13/17 proMETHazine/codeine soln [Phenergan with Codeine oral solution] 5 ml PO Q6H PRN PRN #120 ml 09/13/17 Primary Care Physician: Care Physician,No Primary [Primary Care Provider] - Disposition: [facility] facility Minutes spent on discharge:: 32 Patient Condition:: Stable Medical Necessity - Tobacco Use Smoking Status: Former smoker Meaningful Use Info Meaningful Use Diagnoses (Choose all that apply): None applicable Code Visit Inpatient E&M: 12726 Disch Hosp
[2017-09-26 14:56] LABS: Anion Gap 11 (5-15); BUN 20 mg/dL (7-18); BUN/Creat Ratio 28.6 RATIO (10-20); Calcium,Total 8.9 mg/dL (8.5-10.1); Chloride 106 mmol/L (98-107); EST Glomerular Filtration Rate 87 mL/min (>60); Est Glom Filt Rate - Afr Amer 105 mL/min (>60); Estimated Creatinine Clearance 39.04 ml/min; Glucose 155 mg/dL (74-106); Potassium 4.5 mmol/L (3.5-5.1); Sodium Level 142 mmol/L (136-145)
== END 2017-09-19 11:57 | DRG 871 ==
LOC: ED 17:54 → PCU 18:54
PROVIDERS: Internal Medicine; Admitting Provider Hospitalist; Emergency Provider Emergency Medicine; Visit Provider Internal Medicine
DX: A41.9 Sepsis, unspecified organism (principal); J15.9 Unspecified bacterial pneumonia; J18.9 Pneumonia, unspecified organism; F19.20 Other psychoactive substance dependence, uncomplicated; E87.6 Hypokalemia; D50.9 Iron deficiency anemia, unspecified; R09.02 Hypoxemia; I10 Essential (primary) hypertension; M54.9 Dorsalgia, unspecified; G89.29 Other chronic pain; G47.00 Insomnia, unspecified; K21.9 Gastro-esophageal reflux disease without esophagitis; F32.9 Major depressive disorder, single episode, unspecified; F41.9 Anxiety disorder, unspecified; Z79.899 Other long term (current) drug therapy; Z86.718 Personal history of other venous thrombosis and embolism; Z86.711 Personal history of pulmonary embolism; Z87.891 Personal history of nicotine dependence
CPT/HCPCS: 36415; 71046; 71275; 80048; 81002; 82962; 83540; 83550; 83605; 84484; 85025; 87040; 87070; 87205; 87449; 87633; 87880; 93005; 94640; 94667; 94668; 97110; 97161; 97162; 97165; 97530; 97535; 99285; J1756; J7030; Q9967; A4216

== ENCOUNTER 2017-09-19 12:00 | Inpatient (IN) | payer MEDICARE, OTHER, SELFPAY ==
--- NOTE | 2017-09-18 06:05 | RAD_ITS ---
STUDY: X-RAY CHEST REASON FOR EXAM: Female, 76 years old. Left lower lobe pneumonia with dyspnea on exertion. TECHNIQUE: Frontal and lateral views of the chest. COMPARISON: September 13, 2017 FINDINGS: There is stable hyperexpansion with scarring at both bases. There is a mild diffuse interstitial pattern unchanged. There is no demonstrated pleural abnormality. There is borderline cardiomegaly unchanged. Normal mediastinum and lourdes. Normal visualized pulmonary arteries. There is atherosclerotic calcification of the aortic arch with tortuosity. Normal visualized thoracic spine. Normal visualized ribs, clavicles, and shoulders. There is no demonstrated abnormality of the visualized soft tissue structures of the upper abdomen. RAD/Chest 1 View (Portable) IMPRESSION: Stable borderline cardiomegaly with hyperexpansion and scarring. No new or acute pathology. Electronically Signed: Sheldon Valerio MD at 11:50 EDT , Service support ,
--- NOTE | 2017-09-19 12:00 | DT_ITS ---
This patient was seen during an EMR downtime September 17, 2017 - September 24, 2017. This patient may have a combination of paper and electronic documentation or all paper documentation. All documentation is viewable within the e-chart portion of [facility] for each patient visit.
[2017-09-19 14:30] VITALS: BMI 26.7; BMI 26.8
--- NOTE | 2017-09-20 22:27 | PCM.PN.RX ---
<Pedro Jackson D - Last Filed: 09/20/17 22:27> Progress Note - Pharmacy Subjective: TCU Admission Objective: Allergies sumatriptan [From Imitrex] Allergy (Verified 09/13/17 16:26) Chest tightness sumatriptan succinate [From Imitrex] Allergy (Verified 09/13/17 16:26) Chest tightness Current Medications Generic Name Dose Route Start Last Admin Trade Name Freq PRN Reason Stop Dose Admin Acetaminophen 1,000 mg 09/19/17 16:30 Tylenol PO Q8H PRN PRN Bisacodyl 10 mg 09/19/17 16:30 Dulcolax PO DAILY PRN PRN Duloxetine HCl 60 mg 09/20/17 06:00 Cymbalta PO DAILY [facility] Enoxaparin Sodium 40 mg 09/20/17 06:00 Lovenox SC DAILY@0600 [facility] Ferrous Sulfate 325 mg 09/19/17 17:00 [facility] Guaifenesin 10 ml 09/20/17 15:08 Robitussin Dm PO Q6H PRN PRN Lactobacillus Acidophilus 1 tablet 09/19/17 18:00 Acidophilus PO BID [facility] Lorazepam 2 mg 09/19/17 16:30 Ativan PO DAILY PRN Metoprolol Tartrate 50 mg 09/19/17 18:00 Lopressor (Beta Ivelisse) PO BID [facility] Nifedipine 60 mg 09/20/17 06:00 Procardia Xl PO DAILY [facility] Polyethylene Glycol 17 gm 09/20/17 06:00 Miralax PO DAILY [facility] Senna 2 tablet 09/19/17 18:00 Senokot PO BID [facility] Tramadol HCl 50 mg 09/19/17 16:30 Ultram PO Q8H PRN PRN MODERATE PAIN (4-5/10) Zolpidem Tartrate 5 mg 09/19/17 16:30 Ambien (Generic) PO QHS PRN INSOMNIA Assessment/Plan: 1) Pain APAP for mild pain, tramadol for moderate pain. Continue to monitor daily pain scores, prn medication use. 2) Cardiac Nifedipine daily, metoprolol twice daily. Continue to monitor BP/HR. 3) GI Lactobacillus twice daily. Continue to monitor s/s IG distress. 4) DVT PPx Enoxaparin daily. Continue to monitor s/s bleeding/clot. 5) Nutrition Fe twice daily. Continue to monitor clinically. Psychotropic Medications: 6) Insomnia Zolpidem at HS prn. Continue to monitor for insomnia. 7) Anxiety/Depression Duloxetine daily, lorazepam as needed. Continue to monitor prn medication use. Unnecessary Medications: None Bowel Regimen: 8) Senna, PEG, bisacodyl prn. Continue to monitor prn medication use, for constipation/diarrhea. Date of Note:: 09/20/17 - Provider Comments Provider responsibility: Provider responsible to enter orders to implement recommendations <Dinh Hobson Chi - Last Filed: 09/24/17 18:04> Progress Note - Pharmacy Subjective: [] Objective: Allergies sumatriptan [From Imitrex] Allergy (Verified 09/13/17 16:26) Chest tightness sumatriptan succinate [From Imitrex] Allergy (Verified 09/13/17 16:26) Chest tightness Current Medications Generic Name Dose Route Start Last Admin Trade Name Freq PRN Reason Stop Dose Admin Acetaminophen 1,000 mg 09/19/17 16:30 09/24/17 10:15 Tylenol PO 1,000 mg Q8H PRN PRN Administration Bisacodyl 10 mg 09/19/17 16:30 Dulcolax PO DAILY PRN PRN Duloxetine HCl 60 mg 09/20/17 06:00 09/24/17 06:00 Cymbalta PO 60 mg DAILY [facility] Administration Enoxaparin Sodium 40 mg 09/20/17 06:00 09/24/17 06:00 Lovenox SC 40 mg DAILY@0600 [facility] Administration Ferrous Sulfate 325 mg 09/19/17 17:00 09/24/17 17:05 Ferrous Sulfate PO 325 mg BID [facility] Administration Guaifenesin 10 ml 09/20/17 15:08 Robitussin Dm PO Q6H PRN PRN Lactobacillus Acidophilus 1 tablet 09/19/17 18:00 09/24/17 17:05 Acidophilus PO 1 tablet BID [facility] Administration Lorazepam 2 mg 09/19/17 16:30 Ativan PO DAILY PRN Metoprolol Tartrate 50 mg 09/19/17 18:00 09/24/17 17:05 Lopressor (Beta Ivelisse) PO 50 mg BID [facility] Administration Nifedipine 60 mg 09/20/17 06:00 09/24/17 06:00 Procardia Xl PO 60 mg DAILY [facility] Administration Polyethylene Glycol 17 gm 09/20/17 06:00 09/24/17 06:00 Miralax PO Not Given DAILY [facility] Senna 2 tablet 09/19/17 18:00 09/24/17 17:00 Senokot PO Not Given BID [facility] Tramadol HCl 50 mg 09/19/17 16:30 09/24/17 10:15 Ultram PO 50 mg Q8H PRN PRN Administration MODERATE PAIN (4-5/10) Zolpidem Tartrate 5 mg 09/19/17 16:30 Ambien (Generic) PO QHS PRN INSOMNIA Vital Signs Temp Pulse Resp BP Pulse Ox 96.6 F L 84 18 143/70 H 93 09/24/17 15:58 09/24/17 17:05 09/24/17 16:49 09/24/17 17:05 09/24/17 16:49 Oxygen Delivery Method Room Air Sodium 139 mmol/L (136-145) 09/20/17 05:10 Potassium 3.9 mmol/L (3.5-5.1) 09/20/17 05:10 Chloride 102 mmol/L (98-107) 09/20/17 05:10 Carbon Dioxide 28.0 mmol/L (21.0-32.0) 09/20/17 05:10 Anion Gap 9 (5-15) 09/20/17 05:10 BUN 22 mg/dL (7-18) H 09/20/17 05:10 Creatinine 0.66 mg/dL (0.55-1.02) 09/20/17 05:10 Est GFR (MDRD) Af Amer 113 mL/min (>60) 09/20/17 05:10 Est GFR (MDRD) Non-Af 93 mL/min (>60) 09/20/17 05:10 BUN/Creatinine Ratio 33.3 RATIO (10-20) H 09/20/17 05:10 Glucose 82 mg/dL (74-106) 09/20/17 05:10 Assessment/Plan: Psychotropic Medications: Unnecessary Medications: Bowel Regimen: - Provider Comments Provider responsibility: Provider responsible to enter orders to implement recommendations Provider Comments to Recommendations by Pharmacy: Agree
--- NOTE | 2017-09-20 22:32 | PHA.CONS_ITS ---
<Pedro Jackson D - Last Filed: 09/20/17 22:27> Progress Note - Pharmacy Subjective: TCU Admission Objective: Allergies sumatriptan [From Imitrex] Allergy (Verified 09/13/17 16:26) Chest tightness sumatriptan succinate [From Imitrex] Allergy (Verified 09/13/17 16:26) Chest tightness Current Medications Generic Name Dose Route Start Last Admin Trade Name Freq PRN Reason Stop Dose Admin Acetaminophen 1,000 mg 09/19/17 16:30 Tylenol PO Q8H PRN PRN Bisacodyl 10 mg 09/19/17 16:30 Dulcolax PO DAILY PRN PRN Duloxetine HCl 60 mg 09/20/17 06:00 Cymbalta PO DAILY [facility] Enoxaparin Sodium 40 mg 09/20/17 06:00 Lovenox SC DAILY@0600 GAMALIEL Ferrous Sulfate 325 mg 09/19/17 17:00 [facility] Guaifenesin 10 ml 09/20/17 15:08 Robitussin Dm PO Q6H PRN PRN Lactobacillus Acidophilus 1 tablet 09/19/17 18:00 Acidophilus PO BID [facility] Lorazepam 2 mg 09/19/17 16:30 Ativan PO DAILY PRN Metoprolol Tartrate 50 mg 09/19/17 18:00 Lopressor (Beta Ivelisse) PO BID [facility] Nifedipine 60 mg 09/20/17 06:00 Procardia Xl PO DAILY [facility] Polyethylene Glycol 17 gm 09/20/17 06:00 Miralax PO DAILY [facility] Senna 2 tablet 09/19/17 18:00 Senokot PO BID [facility] Tramadol HCl 50 mg 09/19/17 16:30 Ultram PO Q8H PRN PRN MODERATE PAIN (4-5/10) Zolpidem Tartrate 5 mg 09/19/17 16:30 Ambien (Generic) PO QHS PRN INSOMNIA Assessment/Plan: 1) Pain APAP for mild pain, tramadol for moderate pain. Continue to monitor daily pain scores, prn medication use. 2) Cardiac Nifedipine daily, metoprolol twice daily. Continue to monitor BP/HR. 3) GI Lactobacillus twice daily. Continue to monitor s/s IG distress. 4) DVT PPx Enoxaparin daily. Continue to monitor s/s bleeding/clot. 5) Nutrition Fe twice daily. Continue to monitor clinically. Psychotropic Medications: 6) Insomnia Zolpidem at HS prn. Continue to monitor for insomnia. 7) Anxiety/Depression Duloxetine daily, lorazepam as needed. Continue to monitor prn medication use. Unnecessary Medications: None Bowel Regimen: 8) Senna, PEG, bisacodyl prn. Continue to monitor prn medication use, for constipation/diarrhea. Date of Note:: 09/20/17 - Provider Comments Provider responsibility: Provider responsible to enter orders to implement recommendations <Dinh Hobson Chi - Last Filed: 09/24/17 18:04> Progress Note - Pharmacy Subjective: [] Objective: Allergies sumatriptan [From Imitrex] Allergy (Verified 09/13/17 16:26) Chest tightness sumatriptan succinate [From Imitrex] Allergy (Verified 09/13/17 16:26) Chest tightness Current Medications Generic Name Dose Route Start Last Admin Trade Name Freq PRN Reason Stop Dose Admin Acetaminophen 1,000 mg 09/19/17 16:30 09/24/17 10:15 Tylenol PO 1,000 mg Q8H PRN PRN Administration Bisacodyl 10 mg 09/19/17 16:30 Dulcolax PO DAILY PRN PRN Duloxetine HCl 60 mg 09/20/17 06:00 09/24/17 06:00 Cymbalta PO 60 mg DAILY GAMALIEL Administration Enoxaparin Sodium 40 mg 09/20/17 06:00 09/24/17 06:00 Lovenox SC 40 mg DAILY@0600 GAMALIEL Administration Ferrous Sulfate 325 mg 09/19/17 17:00 09/24/17 17:05 Ferrous Sulfate PO 325 mg BID GAMALIEL Administration Guaifenesin 10 ml 09/20/17 15:08 Robitussin Dm PO Q6H PRN PRN Lactobacillus Acidophilus 1 tablet 09/19/17 18:00 09/24/17 17:05 Acidophilus PO 1 tablet BID GAMALIEL Administration Lorazepam 2 mg 09/19/17 16:30 Ativan PO DAILY PRN Metoprolol Tartrate 50 mg 09/19/17 18:00 09/24/17 17:05 Lopressor (Beta Ivelisse) PO 50 mg BID GAMALIEL Administration Nifedipine 60 mg 09/20/17 06:00 09/24/17 06:00 Procardia Xl PO 60 mg DAILY GAMALIEL Administration Polyethylene Glycol 17 gm 09/20/17 06:00 09/24/17 06:00 Miralax PO Not Given DAILY GAMALIEL Senna 2 tablet 09/19/17 18:00 09/24/17 17:00 Senokot PO Not Given BID G[facility] Tramadol HCl 50 mg 09/19/17 16:30 09/24/17 10:15 Ultram PO 50 mg Q8H PRN PRN Administration MODERATE PAIN (4-5/10) Zolpidem Tartrate 5 mg 09/19/17 16:30 Ambien (Generic) PO QHS PRN INSOMNIA Vital Signs Temp Pulse Resp BP Pulse Ox 96.6 F L 84 18 143/70 H 93 09/24/17 15:58 09/24/17 17:05 09/24/17 16:49 09/24/17 17:05 09/24/17 16:49 Oxygen Delivery Method Room Air Sodium 139 mmol/L (136-145) 09/20/17 05:10 Potassium 3.9 mmol/L (3.5-5.1) 09/20/17 05:10 Chloride 102 mmol/L (98-107) 09/20/17 05:10 Carbon Dioxide 28.0 mmol/L (21.0-32.0) 09/20/17 05:10 Anion Gap 9 (5-15) 09/20/17 05:10 BUN 22 mg/dL (7-18) H 09/20/17 05:10 Creatinine 0.66 mg/dL (0.55-1.02) 09/20/17 05:10 Est GFR (MDRD) Af Amer 113 mL/min (>60) 09/20/17 05:10 Est GFR (MDRD) Non-Af 93 mL/min (>60) 09/20/17 05:10 BUN/Creatinine Ratio 33.3 RATIO (10-20) H 09/20/17 05:10 Glucose 82 mg/dL (74-106) 09/20/17 05:10 Assessment/Plan: Psychotropic Medications: Unnecessary Medications: Bowel Regimen: - Provider Comments Provider responsibility: Provider responsible to enter orders to implement recommendations Provider Comments to Recommendations by Pharmacy: Agree
[2017-09-22 13:43] LABS: BUN 22 mg/dL (7-18); Glucose 82 mg/dL (74-106)
[2017-09-22 13:44] LABS: Anion Gap 9 (5-15); BUN/Creat Ratio 33.3 RATIO (10-20); Calcium,Total 8.7 mg/dL (8.5-10.1); Chloride 102 mmol/L (98-107); Creatinine, Serum 0.66 mg/dL (0.55-1.02); EST Glomerular Filtration Rate 93 mL/min (>60); Est Glom Filt Rate - Afr Amer 113 mL/min (>60); Potassium 3.9 mmol/L (3.5-5.1); Sodium Level 139 mmol/L (136-145)
[2017-09-24] MEDS: NIFEdipine 60 MG Tablet PO (06:00)
[2017-09-24] MEDS: DULoxetine Hcl 60 MG Capsule PO (06:00)
[2017-09-24] MEDS: Enoxaparin 40 MG/0.4 ML Syringe SC (06:00)
[2017-09-24] MEDS: Ferrous Sulfate 325 MG Tablet PO ×3 (08:00→17:05)
[2017-09-24] MEDS: Acetaminophen 500 MG Tablet 1000 MG PO (10:15)
[2017-09-24] MEDS: traMADol 50 MG Tablet PO (10:15)
[2017-09-24 15:42] VITALS: PULSE 78
[2017-09-24] MEDS: Metoprolol Tartrate 50 MG Tablet PO ×3 (15:42→17:05)
[2017-09-24 15:58] VITALS: BP 143/70; PULSE 81; RESP 18; TEMP 35.9; O2SAT 98
[2017-09-24 16:49] VITALS: PULSE 84; RESP 18; O2SAT 93
[2017-09-24 17:03] VITALS: BP 143/70; PULSE 84
[2017-09-24 17:05] VITALS: BP 143/70; PULSE 84
[2017-09-24] MEDS: LORazepam 1 MG Tablet 2 MG PO (20:19)
[2017-09-24] MEDS: Zolpidem Tartrate 5 MG Tablet PO (20:19)
[2017-09-25 06:52] VITALS: BP 149/80; PULSE 87
[2017-09-25] MEDS: Metoprolol Tartrate 50 MG Tablet PO ×2 (06:52→17:09)
[2017-09-25] MEDS: NIFEdipine 60 MG Tablet PO (06:52)
[2017-09-25] MEDS: Senna Tablet 2 TABLET PO (06:53)
[2017-09-25] MEDS: DULoxetine Hcl 60 MG Capsule PO (06:53)
[2017-09-25] MEDS: Enoxaparin 40 MG/0.4 ML Syringe SC (06:55)
[2017-09-25 07:00] VITALS: BP 149/80; PULSE 87; RESP 16; TEMP 36.4; O2SAT 97
[2017-09-25] MEDS: Ferrous Sulfate 325 MG Tablet PO ×2 (07:54→17:09)
[2017-09-25] MEDS: traMADol 50 MG Tablet PO (09:34)
[2017-09-25] MEDS: Acetaminophen 500 MG Tablet 1000 MG PO (09:35)
[2017-09-25 15:30] VITALS: BP 129/79; PULSE 75; RESP 16; TEMP 36.8; O2SAT 94
[2017-09-25 17:09] VITALS: BP 129/79; PULSE 75
[2017-09-25] MEDS: Zolpidem Tartrate 5 MG Tablet PO (20:58)
[2017-09-25] MEDS: LORazepam 1 MG Tablet 2 MG PO (20:59)
[2017-09-26 06:10] VITALS: BP 139/82; PULSE 88
[2017-09-26] MEDS: Metoprolol Tartrate 50 MG Tablet PO ×2 (06:10→18:06)
[2017-09-26] MEDS: NIFEdipine 60 MG Tablet PO (06:10)
--- NOTE | 2017-09-26 09:46 | CASEMGMT ---
Plan of care meeting held. Resident present as well as resident daughter, Dora (via conference call). Resident plans to discharge back to home with spouse at time of discharge. Resident plans to continue with further care and treatment on the Transitional Care Unit. Support given. Will continue to follow. Lu PEDRAZA, PRODUCTION DEPARTMENT SUPERVISOR
--- NOTE | 2017-09-26 14:38 | CASEMGMT ---
Brief interview for mental status (BIMS) and resident mood interview (PHQ-9) completed on this day. BIMS score . PHQ-9 score 05/12.
[2017-09-26 15:27] VITALS: BP 126/54; PULSE 69; RESP 22; TEMP 36.3; O2SAT 99
[2017-09-26] MEDS: Ferrous Sulfate 325 MG Tablet PO (18:05)
[2017-09-26] MEDS: Senna Tablet 2 TABLET PO (18:05)
[2017-09-26 18:06] VITALS: BP 126/54; PULSE 69
[2017-09-26 19:19] LABS: Absolute Neutrophil Count 7.8 X10^3/uL (2.0-7.7); Differential Indicated MANUAL DIFF; Hematocrit 34.6 % (37-47); Hemoglobin 10.9 g/dl (12.0-15.0); Mean Corp Hgb Conc 31.5 g/gl (32-36); Mean Corpuscular Hgb 24.9 pg (27.0-32.0); Mean Platelet Vol. 9.1 fl (6.2-12.0); Metamyelocyte 10 % (0-1); Neutrophil-Segmented 59 % (47-70); POSITIVE COUNT YES; POSITIVE DIFFERENTIAL NO; POSITIVE MORPHOLOGY YES; Platelet Count 474 K/mm3 (150-450); RBC Distribution Width CV 17.3 % (11.6-14.6); RBC Distribution Width SD 49.4 fl (35.1-43.9); Red Blood Count 4.38 M/mm3 (4.2-5.4); Total Cells Counted 100 (MANUAL DIFF); White Blood Count 13.2 K/mm3 (4.4-11.0)
[2017-09-26 19:20] LABS: Eosinophil 1 % (0-5); Lymphocyte 21 % (19-41); Monocyte 9 % (0-10)
[2017-09-26 19:21] LABS: Hypochromasia 1+; Red Cell Morphology N CYTIC NORMAL (NORM C&C)
[2017-09-26 21:00] VITALS: BP 173/56; PULSE 80; RESP 16; TEMP 36.2; O2SAT 98
[2017-09-26] MEDS: Zolpidem Tartrate 5 MG Tablet PO (21:12)
[2017-09-26] MEDS: Acetaminophen 500 MG Tablet 1000 MG PO (21:13)
[2017-09-26] MEDS: LORazepam 1 MG Tablet 2 MG PO (21:13)
[2017-09-26 21:15] VITALS: PULSE 80; RESP 16; O2SAT 98
[2017-09-27 06:13] LABS: Absolute Lymphocyte Count 1.26 X10^3/ul (0.83-4.51); Absolute Neutrophil Count 6.4 X10^3/uL (2.0-7.7); Basophil# 0.02 X10^3/uL; Basophil% 0.2 % (0-1); Eosinophil# 0.04 X10^3/uL; Eosinophils% 0.5 % (0-5); Hematocrit 33.5 % (37-47); Hemoglobin 10.4 g/dl (12.0-15.0); Lymphocyte # 1.26 X10^3/ul (4.0); Lymphocyte % 15.1 % (19-41); Mean Corpuscular Hgb 24.7 pg (27.0-32.0); Mean Corpuscular Volume 79.6 fL (81-99); Mean Platelet Vol. 8.8 fl (6.2-12.0); Monocyte# 0.56 X10^3/uL; Monocyte% 6.7 % (0-10); Neutrophil # 6.44 X10^3/uL (2.7-7.7); Neutrophil % 76.9 % (47-70); Platelet Count 424 K/mm3 (150-450); RBC Distribution Width CV 18.2 % (11.6-14.6); Red Blood Count 4.21 M/mm3 (4.2-5.4); White Blood Count 8.4 K/mm3 (4.4-11.0)
[2017-09-27 06:35] LABS: Anion Gap 9 (5-15); BUN 18 mg/dL (7-18); BUN/Creat Ratio 28.5 RATIO (10-20); Chloride 105 mmol/L (98-107); Creatinine, Serum 0.63 mg/dL (0.55-1.02); EST Glomerular Filtration Rate 98 mL/min (>60); Est Glom Filt Rate - Afr Amer 118 mL/min (>60); Estimated Creatinine Clearance 39.04 ml/min; Glucose 109 mg/dL (74-106); Potassium 4.4 mmol/L (3.5-5.1); Sodium Level 140 mmol/L (136-145)
[2017-09-27] MEDS: DULoxetine Hcl 60 MG Capsule PO (06:40)
[2017-09-27] MEDS: Enoxaparin 40 MG/0.4 ML Syringe SC (06:40)
[2017-09-27 06:41] VITALS: BP 156/70; PULSE 76
[2017-09-27] MEDS: Metoprolol Tartrate 50 MG Tablet PO ×2 (06:41→17:22)
[2017-09-27] MEDS: NIFEdipine 60 MG Tablet PO (06:41)
[2017-09-27 06:55] LABS: POSITIVE COUNT NO; POSITIVE DIFFERENTIAL NO; POSITIVE MORPHOLOGY NO
[2017-09-27] MEDS: Ferrous Sulfate 325 MG Tablet PO ×2 (07:59→17:23)
[2017-09-27 09:55] LABS: Pathologist Review Reviewed
[2017-09-27] MEDS: Tuberculin,Purif.prot.deriv. 50 TU/ML Vial 5 ML ID (11:58)
[2017-09-27] MEDS: Acetaminophen 500 MG Tablet 1000 MG PO (13:58)
[2017-09-27] MEDS: traMADol 50 MG Tablet PO (13:58)
--- NOTE | 2017-09-27 14:09 | CPS ---
Patient doing on own
[2017-09-27 15:31] VITALS: BP 150/69; PULSE 93; RESP 18; TEMP 36.6; O2SAT 97
[2017-09-27 17:22] VITALS: BP 150/69; PULSE 93
[2017-09-27] MEDS: LORazepam 1 MG Tablet 2 MG PO (21:20)
[2017-09-27] MEDS: Zolpidem Tartrate 5 MG Tablet PO (21:20)
[2017-09-28] MEDS: Polyethylene Glycol 3350 17 GM PACKET PO (06:13)
[2017-09-28] MEDS: Enoxaparin 40 MG/0.4 ML Syringe SC (06:14)
[2017-09-28 06:15] VITALS: BP 142/74; PULSE 78
[2017-09-28] MEDS: DULoxetine Hcl 60 MG Capsule PO (06:15)
[2017-09-28] MEDS: NIFEdipine 60 MG Tablet PO (06:15)
[2017-09-28] MEDS: Metoprolol Tartrate 50 MG Tablet PO ×2 (06:15→17:22)
[2017-09-28 06:58] VITALS: PULSE 78; RESP 20; O2SAT 99
[2017-09-28] MEDS: Ferrous Sulfate 325 MG Tablet PO ×2 (08:05→17:23)
[2017-09-28] MEDS: traMADol 50 MG Tablet PO (10:03)
[2017-09-28] MEDS: Acetaminophen 500 MG Tablet 1000 MG PO (10:05)
[2017-09-28 15:14] VITALS: BP 130/72; PULSE 70; RESP 20; TEMP 36.6; O2SAT 96
[2017-09-28 17:22] VITALS: BP 130/72; PULSE 70
[2017-09-28] MEDS: Senna Tablet 2 TABLET PO (17:22)
[2017-09-28] MEDS: Zolpidem Tartrate 5 MG Tablet PO (21:18)
[2017-09-28] MEDS: LORazepam 1 MG Tablet 2 MG PO (21:18)
[2017-09-29 06:00] VITALS: PULSE 78; RESP 16; O2SAT 95
[2017-09-29] MEDS: NIFEdipine 60 MG Tablet PO (06:02)
[2017-09-29] MEDS: DULoxetine Hcl 60 MG Capsule PO (06:02)
[2017-09-29 06:03] VITALS: BP 120/70; PULSE 78
[2017-09-29] MEDS: Enoxaparin 40 MG/0.4 ML Syringe SC (06:03)
[2017-09-29] MEDS: Metoprolol Tartrate 50 MG Tablet PO ×2 (06:03→17:30)
[2017-09-29] MEDS: Polyethylene Glycol 3350 17 GM PACKET PO (06:05)
[2017-09-29] MEDS: Ferrous Sulfate 325 MG Tablet PO ×2 (09:32→17:29)
[2017-09-29] MEDS: Acetaminophen 500 MG Tablet 1000 MG PO ×2 (09:32→18:43)
[2017-09-29] MEDS: traMADol 50 MG Tablet PO ×2 (09:33→18:44)
[2017-09-29 15:38] VITALS: BP 151/73; PULSE 77; RESP 16; TEMP 36.9; O2SAT 99
[2017-09-29 17:30] VITALS: BP 151/73; PULSE 77
[2017-09-29] MEDS: Senna Tablet 2 TABLET PO (17:30)
[2017-09-29] MEDS: Zolpidem Tartrate 5 MG Tablet PO (21:40)
[2017-09-29] MEDS: LORazepam 1 MG Tablet 2 MG PO (21:40)
[2017-09-30] MEDS: Acetaminophen 500 MG Tablet 1000 MG PO ×2 (03:26→15:32)
[2017-09-30] MEDS: traMADol 50 MG Tablet PO ×2 (03:26→15:31)
[2017-09-30] MEDS: DULoxetine Hcl 60 MG Capsule PO (05:52)
[2017-09-30 05:53] VITALS: PULSE 77
[2017-09-30] MEDS: Enoxaparin 40 MG/0.4 ML Syringe SC (05:53)
[2017-09-30] MEDS: Metoprolol Tartrate 50 MG Tablet PO ×2 (05:53→17:30)
[2017-09-30] MEDS: NIFEdipine 60 MG Tablet PO (05:54)
[2017-09-30] MEDS: Ferrous Sulfate 325 MG Tablet PO ×2 (07:55→17:30)
[2017-09-30 09:56] VITALS: PULSE 74; RESP 18; O2SAT 97
[2017-09-30 15:06] VITALS: BP 142/73; PULSE 73; RESP 16; TEMP 36.9; O2SAT 95
[2017-09-30 17:30] VITALS: BP 145/80; PULSE 68
[2017-09-30] MEDS: Senna Tablet 2 TABLET PO (17:31)
[2017-09-30] MEDS: Zolpidem Tartrate 5 MG Tablet PO (22:19)
[2017-09-30] MEDS: LORazepam 1 MG Tablet 2 MG PO (22:19)
[2017-10-01] MEDS: NIFEdipine 60 MG Tablet PO (06:09)
[2017-10-01] MEDS: Enoxaparin 40 MG/0.4 ML Syringe SC (06:09)
[2017-10-01] MEDS: DULoxetine Hcl 60 MG Capsule PO (06:09)
[2017-10-01 06:10] VITALS: PULSE 70
[2017-10-01] MEDS: Metoprolol Tartrate 50 MG Tablet PO ×2 (06:10→17:01)
[2017-10-01] MEDS: Ferrous Sulfate 325 MG Tablet PO ×2 (07:46→17:01)
[2017-10-01 08:17] VITALS: O2SAT 99
[2017-10-01] MEDS: Acetaminophen 500 MG Tablet 1000 MG PO ×2 (08:34→17:03)
[2017-10-01] MEDS: traMADol 50 MG Tablet PO ×2 (08:35→17:03)
[2017-10-01 15:57] VITALS: BP 132/70; PULSE 73; RESP 16; TEMP 36.6; O2SAT 99
--- NOTE | 2017-10-01 16:41 | CHAPLAIN ---
Type of Pastoral Visit ___ Initial Visit _x__ Follow-up Visit ___ On-call Visit ___ General Patient Visit ___ Spiritual Assessment ___ Family Conference ___ Bereavement ___ Rapid Response ___ Code Blue ___ Other (describe below) Pastoral Care Referral From _x__ Patient ___ Family ___ Nurse ___ Physician ___ Licensing Director ___ Facs Teacher ___ Other (describe below) Sacrament/Intervention _x__ Active listening ___ Anointing ___ Spiritism ___ Bereavement ___ Communion ___ Lesly exploration ___ _x__ Life review _x__ Prayer ___ Reconciliation ___ Sacrament of Sick ___ Supportive presence ___ Wedding ___ Other (describe below) Pastoral Comments
[2017-10-01 17:01] VITALS: PULSE 73
[2017-10-01] MEDS: Senna Tablet 2 TABLET PO (17:01)
[2017-10-01] MEDS: LORazepam 1 MG Tablet 2 MG PO (21:42)
[2017-10-01] MEDS: Zolpidem Tartrate 5 MG Tablet PO (21:42)
[2017-10-02 06:30] VITALS: BP 145/76; PULSE 70; RESP 16; O2SAT 97
[2017-10-02] MEDS: Metoprolol Tartrate 50 MG Tablet PO ×2 (06:30→16:57)
[2017-10-02] MEDS: NIFEdipine 60 MG Tablet PO (06:31)
[2017-10-02] MEDS: Enoxaparin 40 MG/0.4 ML Syringe SC (06:32)
[2017-10-02] MEDS: DULoxetine Hcl 60 MG Capsule PO (06:32)
[2017-10-02] MEDS: Ferrous Sulfate 325 MG Tablet PO ×2 (07:31→16:57)
--- NOTE | 2017-10-02 11:03 | CASEMGMT ---
Brief interview for mental status (BIMS) and resident mood interview (PHQ-9) completed on this day. BIMS score 15. PHQ-9 score 05/12
--- NOTE | 2017-10-02 13:42 | MDS.RN ---
Information for the mds was obtained from review of the clinical record-computer and paper chart due hospital computer downtime during lookback period, and direct observation of resident's care.
[2017-10-02] MEDS: Acetaminophen 500 MG Tablet 1000 MG PO (14:12)
[2017-10-02] MEDS: traMADol 50 MG Tablet PO (14:13)
--- NOTE | 2017-10-02 14:33 | CASEMGMT ---
Social Work Spoke with resident in room. This pole frame construction worker communicating to resident that discharge date has been set for 10/06/17. Resident is agreeable to discharge date and plans to discharge home with spouse at time of discharge. This pole frame construction worker communicating that physical therapy is recommending for resident to have continued services through outpatient therapy services. Resident is agreeable to recommendation and requesting for outpatient physical therapy to be set up through [facility]. Resident aware that order will be faxed to [facility] and then [facility] will contact resident to set up appointment. Resident declining for this pole frame construction worker to contact resident family in regards to discharge date. Resident reporting to be planning to contact resident family in regards to discharge date/plan. Support given. Proposed discharge date: 10/06/17 PLAN: Discharge home with spouse and outpatient physical therapy. Lu PEDRAZA, MANAGER REIMBURSEMENT
[2017-10-02 15:28] VITALS: BP 139/74; PULSE 76; RESP 16; TEMP 36.3; O2SAT 96
[2017-10-02 16:57] VITALS: PULSE 76
[2017-10-02] MEDS: Senna Tablet 2 TABLET PO (16:57)
--- NOTE | 2017-10-02 21:04 | PCM.DC ---
You will use the following diet at home:: No restrictions, Regular Your food should be the consistency of: Regular Your liquids should be the consistency of: Regular/Thin Discharge Activity: Return to Normal Activity, May Shower, Use Walker May resume sexual activity in: No Restrictions Weight Bearing Status: Weight bearing as tolerated Call your doctor if you observe: Fever of 101 or Higher, Inability to urinate, Inability to have a bowel movement, Shortness of breath, Chest pain, Uncontrolled pain Allergies/Adverse Reactions: Allergies sumatriptan [From Imitrex] Allergy (Verified 09/13/17 16:26) Chest tightness sumatriptan succinate [From Imitrex] Allergy (Verified 09/13/17 16:26) Chest tightness Medications to take at Discharge Duloxetine HCl 60 mg PO BREAKFAST #30 01/12/17 Lorazepam [Ativan] 2 mg PO QHS #14 01/12/17 NIFEdipine [Procardia Xl] 30 mg PO DAILY #15 01/12/17 Metoprolol Tartrate [Lopressor (beta julieth)] 50 mg PO BID 06/06/17 Tramadol HCl [Ultram] 100 mg PO BID PRN PRN 08/09/17 Duloxetine Hcl [Cymbalta] 60 mg PO DAILY capsule 10/02/17 Ferrous Sulfate 325 mg PO BIDCM #60 tab 10/02/17 Lactobacillus Acidophilus [Acidophilus] 1 tab PO BID #60 tab 10/02/17 Lorazepam [Ativan] 2 mg PO DAILY PRN tablet 10/02/17 Metoprolol Tartrate [Lopressor (beta julieth)] 50 mg PO BID tablet 10/02/17 NIFEdipine [Procardia Xl] 60 mg PO DAILY tablet 10/02/17 Zolpidem Tartrate [Ambien] 5 mg PO QHS PRN tablet 10/02/17 traMADol [Ultram] 50 mg PO Q8H PRN PRN tablet 10/02/17 The following prescriptions were given: Ferrous Sulfate 325 mg PO BIDCM #60 tab Lactobacillus Acidophilus [Acidophilus] 1 tab PO BID #60 tab Primary Care Physician: Care Physician,No Primary [Primary Care Provider] - Please follow up with your Primary Care Physician in: 1 week. Proposed Discharge Date: 10/06/17
--- NOTE | 2017-10-02 21:06 | PCM.DC.SUM ---
Discharge Date and Diagnosis Date of Admission: 09/13/17 Date of Discharge: 10/06/17 - Secondary Discharge Diagnosis Chronic Problems (Last Updated 09/13/17 @ 18:56 by Kai Hutchison MD) Presence of IVC filter (Chronic) h/o DVT/PE History of GI bleed (Chronic) Anxiety (Chronic) GERD (gastroesophageal reflux disease) (Chronic) Hypertension (Chronic) Hyperglycemia (Chronic) no hx of DM Chronic back pain (Chronic) Hiatal hernia (Chronic) Polysubstance dependence (Chronic) Insomnia (Chronic) DVT (deep venous thrombosis) (Chronic) Pulmonary embolism (Chronic) Iron deficiency anemia (Chronic) Hospital Course and Treatment Imaging Results: 09/24/17 16:51 Diet: Regular Diet Is pt able to select menu?: Yes Clinical Impression(s) from Imaging Studies Chest X-Ray 09/18/17 06:05 IMPRESSION: Stable borderline cardiomegaly with hyperexpansion and scarring. No new or acute pathology. Electronically Signed: Sheldon Valerio MD at 11:50 EDT , Service support , Operations: None Procedures: None Summary of Care Provided: The patient is a 76 year old Female with below past medical history hospitalized for sepsis, secondary to left lower lobe community acquired pneumonia, admitted to TCU for rehabilitation, strengthening, prior to discharge home with spouse. Discharge home with spouse, outpatient physical therapy. Discharge Diet: No Restrictions Discharge Activity: Return to Normal Activity, May Shower, Use Walker May resume sexual activity in: No Restrictions Weight Bearing Status: Weight bearing as tolerated Call your doctor if you observe: Fever of 101 or Higher, Inability to urinate, Inability to have a bowel movement, Shortness of breath, Chest pain, Uncontrolled pain Home Medications: Medications to take at Discharge Duloxetine HCl 60 mg PO BREAKFAST #30 01/12/17 Lorazepam [Ativan] 2 mg PO QHS #14 01/12/17 NIFEdipine [Procardia Xl] 30 mg PO DAILY #15 01/12/17 Metoprolol Tartrate [Lopressor (beta julieth)] 50 mg PO BID 06/06/17 Tramadol HCl [Ultram] 100 mg PO BID PRN PRN 08/09/17 Duloxetine Hcl [Cymbalta] 60 mg PO DAILY capsule 10/02/17 Ferrous Sulfate 325 mg PO BIDCM #60 tab 10/02/17 Lactobacillus Acidophilus [Acidophilus] 1 tab PO BID #60 tab 10/02/17 Lorazepam [Ativan] 2 mg PO DAILY PRN tablet 10/02/17 Metoprolol Tartrate [Lopressor (beta julieth)] 50 mg PO BID tablet 10/02/17 NIFEdipine [Procardia Xl] 60 mg PO DAILY tablet 10/02/17 Zolpidem Tartrate [Ambien] 5 mg PO QHS PRN tablet 10/02/17 traMADol [Ultram] 50 mg PO Q8H PRN PRN tablet 10/02/17 Following Prescrptions Were Given to Patient: Ferrous Sulfate 325 mg PO BIDCM #60 tab Lactobacillus Acidophilus [Acidophilus] 1 tab PO BID #60 tab Primary Care Physician: Care Physician,No Primary [Primary Care Provider] - Please follow up with your Primary Care Physician in: 1 week. Disposition: Home Minutes spent on discharge:: 30 Patient Condition:: Stable Medical Necessity - Tobacco Use Smoking Status: Former smoker Meaningful Use Info Meaningful Use Diagnoses (Choose all that apply): None applicable
[2017-10-02] MEDS: Zolpidem Tartrate 5 MG Tablet PO (21:38)
[2017-10-02] MEDS: LORazepam 1 MG Tablet 2 MG PO (21:39)
[2017-10-03 06:00] VITALS: PULSE 70; RESP 18; O2SAT 100
[2017-10-03 06:07] VITALS: BP 141/73; PULSE 70
[2017-10-03] MEDS: DULoxetine Hcl 60 MG Capsule PO (06:07)
[2017-10-03] MEDS: Metoprolol Tartrate 50 MG Tablet PO ×2 (06:07→18:09)
[2017-10-03] MEDS: Enoxaparin 40 MG/0.4 ML Syringe SC (06:08)
[2017-10-03] MEDS: NIFEdipine 60 MG Tablet PO (06:08)
[2017-10-03] MEDS: Ferrous Sulfate 325 MG Tablet PO ×2 (08:00→18:09)
[2017-10-03] MEDS: traMADol 50 MG Tablet PO (08:31)
[2017-10-03] MEDS: Acetaminophen 500 MG Tablet 1000 MG PO (08:31)
--- NOTE | 2017-10-03 09:24 | CASEMGMT ---
Social Work Order for outpatient physical therapy faxed to [facility]. [facility] to contact resident in regards to setting up appointment. Spoke with resident in room. Resident family to provide transportation home for resident at time of discharge. Resident reporting no further needs. Support given. Proposed discharge date: 10/06/17 PLAN: Discharge home with spouse and outpatient physical therapy Lu PEDRAZA, QUALITY REVIEW TRAINER
--- NOTE | 2017-10-03 12:21 | NURSING ---
Pt c/o a migraine today, PRN pain meds not effective. Room dark, fan on and cool compress offered, Dr. Hobson updated, N.O. received and entered, pt updated.
[2017-10-03] MEDS: Ketorolac 60 MG/2 ML Vial IM (13:05)
[2017-10-03] MEDS: Orphenadrine 60 MG/2 ML Ampul IM (13:07)
[2017-10-03 15:06] VITALS: BP 121/54; PULSE 71; RESP 22; TEMP 35.8; O2SAT 97
[2017-10-03 18:09] VITALS: PULSE 71
[2017-10-03] MEDS: Senna Tablet 2 TABLET PO (18:09)
[2017-10-03] MEDS: Zolpidem Tartrate 5 MG Tablet PO (21:34)
[2017-10-03] MEDS: LORazepam 1 MG Tablet 2 MG PO (21:34)
[2017-10-04 05:54] VITALS: BP 141/70; PULSE 76
[2017-10-04] MEDS: DULoxetine Hcl 60 MG Capsule PO (05:54)
[2017-10-04] MEDS: Metoprolol Tartrate 50 MG Tablet PO ×2 (05:54→16:46)
[2017-10-04] MEDS: Enoxaparin 40 MG/0.4 ML Syringe SC (05:55)
[2017-10-04] MEDS: NIFEdipine 60 MG Tablet PO (05:55)
[2017-10-04 05:57] LABS: Absolute Lymphocyte Count 1.81 X10^3/ul (0.83-4.51); Basophil# 0.05 X10^3/uL; Basophil% 0.8 % (0-1); Eosinophil# 0.11 X10^3/uL; Eosinophils% 1.7 % (0-5); Hematocrit 34.3 % (37-47); Hemoglobin 10.8 g/dl (12.0-15.0); Lymphocyte # 1.81 X10^3/ul (4.0); Lymphocyte % 27.8 % (19-41); Mean Corp Hgb Conc 31.5 g/gl (32-36); Mean Corpuscular Hgb 25.7 pg (27.0-32.0); Mean Corpuscular Volume 81.5 fL (81-99); Mean Platelet Vol. 9.4 fl (6.2-12.0); Monocyte# 0.51 X10^3/uL; Monocyte% 7.8 % (0-10); Neutrophil # 3.96 X10^3/uL (2.7-7.7); Platelet Count 304 K/mm3 (150-450); RBC Distribution Width CV 19.3 % (11.6-14.6); RBC Distribution Width SD 57.4 fl (35.1-43.9); Red Blood Count 4.21 M/mm3 (4.2-5.4); White Blood Count 6.5 K/mm3 (4.4-11.0)
[2017-10-04 05:59] LABS: POSITIVE COUNT NO; POSITIVE DIFFERENTIAL NO; POSITIVE MORPHOLOGY NO
[2017-10-04 06:16] LABS: Anion Gap 10 (5-15); BUN 32 mg/dL (7-18); BUN/Creat Ratio 41.5 RATIO (10-20); Calcium,Total 8.8 mg/dL (8.5-10.1); Chloride 107 mmol/L (98-107); Creatinine, Serum 0.77 mg/dL (0.55-1.02); EST Glomerular Filtration Rate 78 mL/min (>60); Est Glom Filt Rate - Afr Amer 94 mL/min (>60); Estimated Creatinine Clearance 39.04 ml/min; Glucose 93 mg/dL (74-106); Potassium 4.6 mmol/L (3.5-5.1); Sodium Level 142 mmol/L (136-145)
[2017-10-04] MEDS: Ferrous Sulfate 325 MG Tablet PO ×2 (08:33→16:46)
[2017-10-04] MEDS: Acetaminophen 500 MG Tablet 1000 MG PO (11:12)
[2017-10-04] MEDS: traMADol 50 MG Tablet PO (11:13)
[2017-10-04 11:33] VITALS: RESP 16
--- NOTE | 2017-10-04 15:47 | MDS.RN ---
Pain interview for FORTUNATO 10/06/17 completed.
[2017-10-04 16:00] VITALS: BP 130/76; PULSE 83; RESP 16; TEMP 35.6; O2SAT 96
[2017-10-04 16:46] VITALS: BP 130/76; PULSE 83
[2017-10-04] MEDS: Senna Tablet 2 TABLET PO (16:46)
[2017-10-04] MEDS: Zolpidem Tartrate 5 MG Tablet PO (20:00)
[2017-10-04] MEDS: LORazepam 1 MG Tablet 2 MG PO (20:01)
[2017-10-05 05:39] VITALS: BP 136/71; PULSE 80
[2017-10-05] MEDS: Metoprolol Tartrate 50 MG Tablet PO ×2 (05:39→19:12)
[2017-10-05] MEDS: NIFEdipine 60 MG Tablet PO (05:39)
[2017-10-05] MEDS: Enoxaparin 40 MG/0.4 ML Syringe SC (05:39)
[2017-10-05] MEDS: DULoxetine Hcl 60 MG Capsule PO (05:39)
[2017-10-05] MEDS: Ferrous Sulfate 325 MG Tablet PO ×2 (08:03→19:12)
[2017-10-05] MEDS: traMADol 50 MG Tablet PO (08:06)
[2017-10-05] MEDS: Acetaminophen 500 MG Tablet 1000 MG PO (08:07)
[2017-10-05 15:38] VITALS: BP 137/75; PULSE 73; RESP 20; TEMP 36
[2017-10-05] MEDS: Senna Tablet 2 TABLET PO (19:11)
[2017-10-05 19:12] VITALS: BP 137/75; PULSE 73
[2017-10-05] MEDS: Zolpidem Tartrate 5 MG Tablet PO (20:17)
[2017-10-05] MEDS: LORazepam 1 MG Tablet 2 MG PO (20:18)
[2017-10-06] MEDS: DULoxetine Hcl 60 MG Capsule PO (05:17)
[2017-10-06] MEDS: NIFEdipine 60 MG Tablet PO (05:19)
[2017-10-06 05:20] VITALS: BP 147/74; PULSE 64
[2017-10-06] MEDS: Metoprolol Tartrate 50 MG Tablet PO (05:20)
[2017-10-06] MEDS: Enoxaparin 40 MG/0.4 ML Syringe SC (05:20)
[2017-10-06] MEDS: Ferrous Sulfate 325 MG Tablet PO (08:00)
[2017-10-06] MEDS: Acetaminophen 500 MG Tablet 1000 MG PO (09:39)
[2017-10-06] MEDS: traMADol 50 MG Tablet PO (09:40)
[2017-10-06 10:00] VITALS: PULSE 64; RESP 18
[2017-10-06 11:04] VITALS: BP 161/69; PULSE 69; RESP 16; TEMP 36.8; O2SAT 98
--- NOTE | 2017-10-06 11:50 | NURSING ---
pt requesting that she have script for ativan and ambien, Dr rubalcava notified & will not send any scripts, pt to find new PCP for meds
--- NOTE | 2017-10-15 12:03 | MDS.RN ---
Information for the mds was obtained from review of the clinical record, interview of resident, staff, and direct observation of resident's care.
== END 2017-10-06 12:45 | disposition home or self-care (01) | DRG 947 ==
PROVIDERS: Admitting Provider Family Medicine Geriatric Medicine; Visit Provider Family Medicine Geriatric Medicine
DX: R53.81 Other malaise (principal); J18.9 Pneumonia, unspecified organism; A41.9 Sepsis, unspecified organism; I50.9 Heart failure, unspecified; I10 Essential (primary) hypertension; F41.9 Anxiety disorder, unspecified; G47.00 Insomnia, unspecified; K21.9 Gastro-esophageal reflux disease without esophagitis; D50.9 Iron deficiency anemia, unspecified; Z86.711 Personal history of pulmonary embolism; Z86.718 Personal history of other venous thrombosis and embolism; G89.29 Other chronic pain; M54.9 Dorsalgia, unspecified; Z87.891 Personal history of nicotine dependence
CPT/HCPCS: 36415; 71045; 80048; 85025; 94667; 94668; 97110; 97116; 97166; 97530; 97535; 97802; J1756; A4216

== ENCOUNTER 2017-09-26 15:04 | Day surgery (SDC) | payer MEDICARE, OTHER, SELFPAY ==
[2017-09-26 15:11] VITALS: BP 119/73; PULSE 68; RESP 18; TEMP 36.6; O2SAT 100; BMI 26.3
--- NOTE | 2017-09-26 16:02 | RAD_ITS ---
STUDY: X-RAY - LUMBAR SPINE REASON FOR EXAM: Female, 76 years old. Foraminal block TECHNIQUE: 2 intraoperative fluoroscopic view(s) of the lumbar spine were obtained. COMPARISON: None FINDINGS: Fluoroscopy was provided during a transforaminal nerve block in the lower lumbar spine. RAD/Lumbar Spine 2 or 3 Views IMPRESSION: As above. Electronically Signed: Lonnie Ayala, at 21:02 EDT Tel , Service support ,
[2017-09-26] MEDS: Triamcinolone Acetonide 40 MG/ML Vial (16:12)
[2017-09-26 16:24] VITALS: BP 119/73; BP 129/71; PULSE 72; RESP 16; TEMP 36.9; O2SAT 100
[2017-09-26 16:30] VITALS: BP 119/73; BP 137/78; PULSE 71; RESP 16; O2SAT 99
[2017-09-26 16:35] VITALS: BP 119/73; BP 142/74; PULSE 73; RESP 16; O2SAT 100
[2017-09-26 16:40] VITALS: BP 119/73; BP 141/84; PULSE 69; RESP 16; TEMP 36.9; O2SAT 100
== END 2017-09-26 16:41 | disposition skilled nursing facility (03) ==
LOC: SDC 15:04 → AC 15:05
PROVIDERS: Visit Provider Anesthesiology Pain Medicine
PROC: 3E0S3BZ Introduction of Anesthetic Agent into Epidural Space, Percutaneous Approach (ICD-10-PCS; CPT 64484; principal; 2017-09-26 15:40)
DX: M51.16 Intervertebral disc disorders with radiculopathy, lumbar region (principal); M51.17 Intervertebral disc disorders with radiculopathy, lumbosacral region; M96.1 Postlaminectomy syndrome, not elsewhere classified; I10 Essential (primary) hypertension; G89.29 Other chronic pain; F32.9 Major depressive disorder, single episode, unspecified; F41.9 Anxiety disorder, unspecified; Z78.0 Asymptomatic menopausal state; Z79.899 Other long term (current) drug therapy; Z79.01 Long term (current) use of anticoagulants; Z79.82 Long term (current) use of aspirin; Z87.891 Personal history of nicotine dependence; Z86.711 Personal history of pulmonary embolism; Z86.718 Personal history of other venous thrombosis and embolism; Z87.01 Personal history of pneumonia (recurrent)
CPT/HCPCS: 64484; 64483; 72100; J7120

== ENCOUNTER → 2018-07-03 10:20 | Outpatient (CLI) | payer MEDICARE, OTHER, SELFPAY ==
[2018-05-01 13:42] VITALS: BMI 29.5
[2018-07-03 12:44] LABS: Absolute Lymphocyte Count 1.32 X10^3/ul (0.83-4.51); Absolute Neutrophil Count 8.7 X10^3/uL (2.0-7.7); Basophil# 0.05 X10^3/uL; Basophil% 0.5 % (0-1); Eosinophil# 0.07 X10^3/uL; Eosinophils% 0.6 % (0-5); Hematocrit 41.8 % (37-47); Hemoglobin 13.5 g/dl (12.0-15.0); Lymphocyte # 1.32 X10^3/ul (4.0); Lymphocyte % 12.1 % (19-41); Mean Corp Hgb Conc 32.3 g/gl (32-36); Mean Corpuscular Hgb 28.7 pg (27.0-32.0); Mean Corpuscular Volume 88.9 fL (81-99); Mean Platelet Vol. 9.5 fl (6.2-12.0); Monocyte# 0.68 X10^3/uL; Monocyte% 6.2 % (0-10); Neutrophil # 8.73 X10^3/uL (2.7-7.7); Neutrophil % 79.9 % (47-70); Platelet Count 362 K/mm3 (150-450); RBC Distribution Width CV 14.1 % (11.6-14.6); RBC Distribution Width SD 45.1 fl (35.1-43.9); White Blood Count 10.9 K/mm3 (4.4-11.0)
[2018-07-03 12:46] LABS: POSITIVE COUNT NO; POSITIVE DIFFERENTIAL NO; POSITIVE MORPHOLOGY NO
[2018-07-03 13:31] LABS: T4 Free Direct 0.83 ng/dL (0.76-1.46); Thyroid Stim Hormone (TSH) 1.45 uIU/mL (0.358-3.74)
[2018-07-03 13:33] LABS: ALB/GLOB Ratio 1.1 RATIO (0.9-2.4); AST(SGOT) 11 U/L (15-37); Alanine Aminotransfer ALT/SGPT 19 U/L (13-56); Albumin, Serum 3.9 g/dL (3.2-5.0); Alkaline Phosphatase 66 U/L (45-117); Anion Gap 5 (5-15); BUN 26 mg/dL (7-18); BUN/Creat Ratio 29.5 RATIO (10-20); Calcium,Total 8.6 mg/dL (8.5-10.1); Chloride 106 mmol/L (98-107); Creatinine, Serum 0.88 mg/dL (0.55-1.02); EST Glomerular Filtration Rate 66 mL/min (>60); Est Glom Filt Rate - Afr Amer 80 mL/min (>60); Ferritin 66 ng/mL (8-252); Globulin 3.6 g/dL (2.2-4.2); Glucose 125 mg/dL (74-106); Iron 89 ug/dL (50-170); Iron Binding Capacity,Total 409 ug/dL (250-450); PERCENT IRON SATURATION 21.8 % (15.0-55.0); Protein, Total 7.5 g/dL (6.4-8.2); Sodium Level 138 mmol/L (136-145)
[2018-07-03 14:22] LABS: Vitamin B12 359 pg/mL (211-911)
== END ==
PROVIDERS: Family Provider Internal Medicine; PCP Internal Medicine; Referring Provider Internal Medicine Medical Oncology; Visit Provider Internal Medicine Medical Oncology
DX: D50.9 Iron deficiency anemia, unspecified (principal); E03.9 Hypothyroidism, unspecified
CPT/HCPCS: 80053; 82607; 82728; 82746; 83540; 83550; 84439; 84443; 85025

== ENCOUNTER → 2018-08-27 10:38 | Outpatient (CLI) | payer MEDICARE, OTHER, SELFPAY ==
[2018-08-27 10:21] VITALS: BMI 28.7
[2018-08-27 12:26] LABS: Hematocrit 38.4 % (37-47); Hemoglobin 12.9 g/dl (12.0-15.0)
== END ==
PROVIDERS: Family Provider Internal Medicine; PCP Internal Medicine; Visit Provider Nurse Practitioner Family
DX: D64.9 Anemia, unspecified (principal)
CPT/HCPCS: 36415; 85014; 85018

== ENCOUNTER → 2018-10-08 14:30 | Outpatient (CLI) | payer MEDICARE, OTHER, SELFPAY ==
[2018-10-03 14:50] VITALS: BMI 27.6
--- NOTE | 2018-10-08 14:37 | RAD_ITS ---
STUDY: X-RAY CHEST REASON FOR EXAM: Female, 77 years old. Cough, personal history of pneumonia. TECHNIQUE: PA and lateral chest COMPARISON: 09/18/2017 FINDINGS: Very large sliding hiatal hernia containing the majority of the gastric fundus. There appears to be a bandlike pulsatile markings within the gas-filled viscus in the hiatal hernia. This may potentially reflect the presence of large bowel within the hernia, but may also merely reflect a fold in the gastric fundus within the hernia. No significant cardiomegaly. Normal mediastinal silhouette, lourdes and pleural margins. Mild basilar atelectasis/scar, stable features compared to prior imaging, scar at the left lung base contributing to mildly elevated left hemidiaphragm and chronic blunting of the left costophrenic angle. The lungs are acutely clear. 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 No acute osseous or upper abdominal process is evident. RAD/Chest PA and Lateral IMPRESSION: Very large sliding hiatal hernia. Questionable as to whether the right the large bowel within the hernia defect in addition to stomach. A follow-up CT chest is recommended to exclude entrapment of bowel within the hernia or in order to exclude volvulus within the hernia. Pleura features are stable, consistent with basilar scar, and COPD/emphysema. Electronically Signed: Connor Cardona MD at 16:09 EDT Tel , Service support ,
== END ==
LOC: MTRAD 14:35
PROVIDERS: Family Provider Internal Medicine; PCP Internal Medicine; Referring Provider Family Medicine; Visit Provider Family Medicine
DX: Z87.01 Personal history of pneumonia (recurrent) (principal)
CPT/HCPCS: 71046

== ENCOUNTER → 2019-02-06 13:42 | Outpatient (CLI) | payer MEDICARE, OTHER, SELFPAY ==
[2018-12-25 15:10] VITALS: BMI 27.6
[2019-02-06 15:48] LABS: Absolute Lymphocyte Count 1.54 X10^3/uL (0.83-4.51); Absolute Neutrophil Count 4.8 X10^3/uL (2.0-7.7); Basophil# 0.07 X10^3/uL; Eosinophil# 0.01 X10^3/uL; Eosinophils% 0.1 % (0-5); Hematocrit 39.3 % (37-47); Hemoglobin 12.6 g/dL (12.0-15.0); Lymphocyte # 1.54 X10^3/ul (4.0); Lymphocyte % 22.2 % (19-41); Mean Corp Hgb Conc 32.1 g/dL (32-36); Mean Corpuscular Hgb 27.8 pg (27.0-32.0); Mean Corpuscular Volume 86.8 fL (81-99); Mean Platelet Vol. 9.1 fl (6.2-12.0); Monocyte% 7.2 % (0-10); NRBC Flagged by Analyzer 0 % (0-5); Neutrophil # 4.78 X10^3/uL (2.7-7.7); Neutrophil % 68.8 % (47-70); Platelet Count 247 K/mm3 (150-450); RBC Distribution Width CV 13.8 % (11.6-14.6); RBC Distribution Width SD 43.8 fl (35.1-43.9); Red Blood Count 4.53 M/mm3 (4.2-5.4)
[2019-02-06 16:09] LABS: AST(SGOT) 16 U/L (15-37); Alanine Aminotransfer ALT/SGPT 23 U/L (13-56); Albumin, Serum 3.8 g/dL (3.2-5.0); Alkaline Phosphatase 64 U/L (45-117); Anion Gap 6 (5-15); BUN 18 mg/dL (7-18); BUN/Creat Ratio 22.4 RATIO (10-20); Calcium,Total 8.7 mg/dL (8.5-10.1); Chloride 103 mmol/L (98-107); EST Glomerular Filtration Rate 74 mL/min (>60); Est Glom Filt Rate - Afr Amer 89 mL/min (>60); Ferritin 20 ng/mL (8-252); Globulin 3.8 g/dL (2.2-4.2); Glucose 92 mg/dL (74-106); Iron 90 ug/dL (50-170); Iron Binding Capacity,Total 398 ug/dL (250-450); PERCENT IRON SATURATION 22.6 % (15.0-55.0); Potassium 3.9 mmol/L (3.5-5.1); Protein, Total 7.6 g/dL (6.4-8.2); Sodium Level 137 mmol/L (136-145)
== END ==
PROVIDERS: Family Provider Internal Medicine; PCP Internal Medicine; Referring Provider Internal Medicine Medical Oncology; Visit Provider Internal Medicine Medical Oncology
DX: D50.9 Iron deficiency anemia, unspecified (principal)
CPT/HCPCS: 36415; 80053; 82728; 83540; 83550; 85025

== ENCOUNTER → 2019-12-03 08:56 | Outpatient (CLI) | payer MEDICARE, SELFPAY ==
[2019-09-01 15:14] VITALS: BMI 28.7
[2019-12-03 10:19] LABS: Absolute Lymphocyte Count 1.38 X10^3/uL (0.83-4.51); Absolute Neutrophil Count 4.9 X10^3/uL (2.0-7.7); Basophil# 0.05 X10^3/uL; Basophil% 0.7 % (0-1); Eosinophil# 0.07 X10^3/uL; Hematocrit 40.4 % (37-47); Lymphocyte # 1.38 X10^3/ul (4.0); Lymphocyte % 20.1 % (19-41); Mean Corp Hgb Conc 32.2 g/dL (32-36); Mean Corpuscular Hgb 27.6 pg (27.0-32.0); Mean Corpuscular Volume 85.8 fL (81-99); Mean Platelet Vol. 9.4 fl (6.2-12.0); Monocyte# 0.45 X10^3/uL; Monocyte% 6.6 % (0-10); NRBC Flagged by Analyzer 0 % (0-5); Neutrophil # 4.85 X10^3/uL (2.7-7.7); Neutrophil % 70.9 % (47-70); Platelet Count 261 K/mm3 (150-450); RBC Distribution Width SD 40.7 fl (35.1-43.9); Red Blood Count 4.71 M/mm3 (4.2-5.4); White Blood Count 6.9 K/mm3 (4.4-11.0)
[2019-12-03 10:50] LABS: AST(SGOT) 21 U/L (15-37); Alanine Aminotransfer ALT/SGPT 26 U/L (13-56); Albumin, Serum 3.9 g/dL (3.2-5.0); Alkaline Phosphatase 68 U/L (45-117); Anion Gap 6 (5-15); BUN 22 mg/dL (7-18); BUN/Creat Ratio 17.1 RATIO (10-20); Calcium,Total 8.8 mg/dL (8.5-10.1); Chloride 104 mmol/L (98-107); Creatinine, Serum 1.29 mg/dL (0.55-1.02); EST Glomerular Filtration Rate 43 mL/min (>60); Est Glom Filt Rate - Afr Amer 52 mL/min (>60); Ferritin 30 ng/mL (8-252); Globulin 3.8 g/dL (2.2-4.2); Glucose 96 mg/dL (74-106); Iron 106 ug/dL (50-170); Iron Binding Capacity,Total 405 ug/dL (250-450); PERCENT IRON SATURATION 26.2 % (15.0-55.0); Potassium 3.8 mmol/L (3.5-5.1); Protein, Total 7.7 g/dL (6.4-8.2); Sodium Level 138 mmol/L (136-145)
[2019-12-03 12:38] LABS: LDH 144 U/L (84-246)
== END ==
LOC: MTLAB 08:58
PROVIDERS: Internal Medicine Medical Oncology; PCP Internal Medicine; Referring Provider Nurse Practitioner Family; Visit Provider Nurse Practitioner Family
DX: D50.9 Iron deficiency anemia, unspecified (principal)
CPT/HCPCS: 36415; 80053; 82728; 83540; 83550; 83615; 85025

== ENCOUNTER → 2020-07-30 12:30 | Outpatient (CLI) | payer MEDICARE, SELFPAY ==
[2020-07-30 11:31] VITALS: BMI 29.0
--- NOTE | 2020-07-30 12:37 | RAD_ITS ---
STUDY: X-RAY CHEST REASON FOR EXAM: Female, 79 years old. Soreness of breath. TECHNIQUE: Single AP portable view of the chest. COMPARISON: 10/08/2018. FINDINGS: The lungs are well expanded. There is no acute infiltrate or mass. There is no demonstrated pleural abnormality. Normal size heart. Normal mediastinum and lourdes. Normal visualized pulmonary arteries. There is atherosclerotic calcification of the aortic arch with tortuosity. There are diffuse degenerative changes of the visualized thoracic spine. There is degenerative osteoarthritis of the bilateral shoulders. Again seen is a large retrocardiac hiatal hernia. RAD/Chest PA and Lateral IMPRESSION: 1. Large retrocardiac hiatal hernia without acute cardiopulmonary disease or interval change. Electronically Signed: Avel Adam DO at 23:49 EDT Tel [phone], Service support ,
== END ==
PROVIDERS: PCP Internal Medicine; Referring Provider Internal Medicine Cardiovascular Disease; Visit Provider Internal Medicine Cardiovascular Disease
DX: R06.02 Shortness of breath (principal); R60.0 Localized edema; I10 Essential (primary) hypertension; K44.9 Diaphragmatic hernia without obstruction or gangrene
CPT/HCPCS: 71046

== ENCOUNTER → 2020-08-09 07:48 | Outpatient (CLI) | payer MEDICARE, SELFPAY ==
[2020-07-30 11:31] VITALS: BMI 29.0
[2020-08-09 08:20] LABS: Absolute Lymphocyte Count 1.32 X10^3/uL (0.83-4.51); Absolute Neutrophil Count 3.5 X10^3/uL (2.0-7.7); Basophil# 0.04 X10^3/uL; Basophil% 0.8 % (0-1); Eosinophil# 0.09 X10^3/uL; Eosinophils% 1.7 % (0-5); Hemoglobin 12.5 g/dL (12.0-15.0); Lymphocyte # 1.32 X10^3/ul (0.83-4.51); Lymphocyte % 24.9 % (19-41); Mean Corp Hgb Conc 32.1 g/dL (32-36); Mean Corpuscular Hgb 27.4 pg (27.0-32.0); Mean Corpuscular Volume 85.5 fL (81-99); Mean Platelet Vol. 9.2 fl (6.2-12.0); Monocyte# 0.36 X10^3/uL; Monocyte% 6.8 % (0-10); NRBC Flagged by Analyzer 0 % (0-5); Neutrophil # 3.47 X10^3/uL (2.7-7.7); Neutrophil % 65.2 % (47-70); Platelet Count 239 K/mm3 (150-450); RBC Distribution Width CV 13.1 % (11.6-14.6); RBC Distribution Width SD 40.6 fl (35.1-43.9); Red Blood Count 4.56 M/mm3 (4.2-5.4); White Blood Count 5.3 K/mm3 (4.4-11.0)
[2020-08-09 08:55] LABS: AST(SGOT) 16 U/L (15-37); Alanine Aminotransfer ALT/SGPT 21 U/L (13-56); Albumin, Serum 3.8 g/dL (3.2-5.0); Alkaline Phosphatase 78 U/L (45-117); Anion Gap 7 (5-15); BUN 16 mg/dL (7-18); BUN/Creat Ratio 20.7 RATIO (10-20); Calcium,Total 8.8 mg/dL (8.5-10.1); Chloride 106 mmol/L (98-107); Creatinine, Serum 0.77 mg/dL (0.55-1.02); EST Glomerular Filtration Rate 77 mL/min (>60); Est Glom Filt Rate - Afr Amer 93 mL/min (>60); Ferritin 19 ng/mL (8-252); Globulin 3.7 g/dL (2.2-4.2); Glucose 102 mg/dL (74-106); Iron 69 ug/dL (50-170); Iron Binding Capacity,Total 396 ug/dL (250-450); LDH 150 U/L (84-246); PERCENT IRON SATURATION 17.4 % (15.0-55.0); Potassium 3.5 mmol/L (3.5-5.1); Protein, Total 7.5 g/dL (6.4-8.2); Sodium Level 141 mmol/L (136-145)
[2020-08-09 09:00] LABS: AST(SGOT) 16 U/L (15-37); Alanine Aminotransfer ALT/SGPT 21 U/L (13-56); Albumin, Serum 3.8 g/dL (3.2-5.0); Alkaline Phosphatase 77 U/L (45-117); Bilirubin, Direct 0.14 mg/dL (0.00-0.30); Cholesterol 223 mg/dL (200); Globulin 3.7 g/dL (2.2-4.2); High Density Lipoprotein 57 mg/dL; Protein, Total 7.5 g/dL (6.4-8.2); Thyroid Stim Hormone (TSH) 3.19 uIU/mL (0.358-3.74); Triglycerides 126 mg/dL; Very Low Density Lipoprotein 25 mg/dL (5-40)
== END ==
PROVIDERS: Internal Medicine Medical Oncology; PCP Internal Medicine; Referring Provider Internal Medicine Cardiovascular Disease; Visit Provider Internal Medicine Cardiovascular Disease
DX: I10 Essential (primary) hypertension (principal); R06.02 Shortness of breath; R60.0 Localized edema; D50.9 Iron deficiency anemia, unspecified
CPT/HCPCS: 36415; 80053; 80061; 80076; 82728; 83540; 83550; 83615; 83735; 84443; 85025

== ENCOUNTER → 2020-08-13 06:23 | Outpatient (CLI) | payer MEDICARE, SELFPAY ==
[2020-07-30 11:31] VITALS: BMI 29.0
--- NOTE | 2020-08-13 06:32 | ECHOD_ITS ---
Reason For Study: SOB Procedure This was a 2D Doppler, Color Flow transthoracic echocardiogram. The study was technically difficult. Exam performed in department. Left Ventricle Normal LV size. Mild concentric left ventricular hypertrophy. Left ventricular systolic function is normal. The estimated ejection fraction is 70 %. Diastolic function is indeterminate. No regional wall motion abnormalities noted. Right Ventricle Normal RV size. Normal systolic function. Atria The left atrium is mildly enlarged. Normal right atrium. No doppler evidence for ASD. Mitral Valve There is mild mitral annular calcification. Extension of the mitral annular calcification on the base of the posterior mitral valve leaflet. Trivial mitral valve insufficiency. Tricuspid Valve Normal tricuspid valve. Trivial tricuspid valve insufficiency. Right ventricular systolic pressure estimated to be 32 mmHg. Aortic Valve Trisinus/trileaflet aortic valve. Mild focal aortic valve calcification. Mild aortic stenosis. Trivial aortic valve insufficiency. Pulmonic Valve The pulmonic valve is not well visualized. Trivial pulmonic valve insufficiency. Great Vessels Normal sized aortic root. Pericardium/Pleural No pericardial effusion. MMode/2D Measurements & Calculations LVIDd: 3.7 cm IVSd: 1.4 cm LVOT diam: 2.0 cm LVIDs: 1.8 cm LVPWd: 1.3 cm LVOT area: 3.1 cm2 RVDd: 3.1 cm FS: 50.8 % Ao root diam: 2.8 cm LAV(MOD-bp): 34.0 ml LVAd ap4: 20.4 cm2 LAV(MOD-bp) Indexed: 20.0 ml/m2 LVLd ap4: 6.8 cm LAV(MOD-sp2): 12.7 ml EDV(MOD-sp4): 50.7 ml LAV(MOD-sp4): 73.6 ml EDV(sp4-el): 52.1 ml LVAs ap4: 8.8 cm2 LVLs ap4: 5.6 cm ESV(MOD-sp4): 11.9 ml ESV(sp4-el): 11.8 ml EF(MOD-sp4): 76.6 % EF(sp4-el): 77.4 % LVAd ap2: 18.5 cm2 SV(MOD-sp4): 38.8 ml SV(MOD-sp2): 31.9 ml LVLd ap2: 6.6 cm EDV(MOD-sp2): 43.9 ml EDV(sp2-el): 43.7 ml LVAs ap2: 8.9 cm2 LVLs ap2: 6.1 cm ESV(MOD-sp2): 12.0 ml ESV(sp2-el): 11.1 ml EF(MOD-sp2): 72.7 % SV(sp4-el): 40.3 ml LA dimension(2D): 3.0 cm LA A4 area: 21.6 cm2 RA A4 area: 13.2 cm2 Doppler Measurements & Calculations MV E max quan: 75.6 cm/sec Lat Peak E' Quan: 6.7 cm/sec Med Peak E' Quan: 4.1 cm/sec MV A max quan: 89.2 cm/sec E/E' lat: 11.2 E/E' med: 18.6 MV E/A: 0.85 Ao V2 max: 214.6 cm/sec AI max quan: 388.3 cm/sec LV V1 max: 114.6 cm/sec Ao max P.4 mmHg AI max P.3 mmHg LV V1 max P.3 mmHg Ao V2 mean: 141.4 cm/sec AI dec slope: 234.6 cm/sec2 LV V1 mean P.0 mmHg Ao mean P.0 mmHg AI P1/2t: 484.8 msec LV V1 mean: 82.0 cm/sec Ao V2 VTI: 43.8 cm LV V1 VTI: 25.4 cm ANTIONE(I,D): 1.8 cm2 ANTIONE(V,D): 1.7 cm2 SV(LVOT): 80.0 ml PA V2 max: 109.6 cm/sec TR max quan: 267.7 cm/sec TR max P.7 mmHg ECHO/Echo Complete Interpretation Summary The study was technically difficult. Left ventricular systolic function is normal. The estimated ejection fraction is 70 %. Mild concentric left ventricular hypertrophy. The left atrium is mildly enlarged. There is mild mitral annular calcification. Extension of the mitral annular calcification on the base of the posterior mitr al valve leaflet. Trivial mitral valve insufficiency. Trivial tricuspid valve insufficiency. Mild aortic stenosis. Trivial aortic valve insufficiency. Trivial pulmonic valve insufficiency. Right ventricular systolic pressure estimated to be 32 mmHg. Diastolic function is indeterminate. Ordering Physician: Toy Quinn Referring Physician: Nitin Tilley Performed By: Alissa Quiroga RDCS
--- NOTE | 2020-08-13 09:58 | STRESSREP_ITS ---
Stress Test Report Date: 08-13-2020 Procedure: Pharmacologic stress nuclear imaging study Indications: Shortness of breath/dyspnea on exertion Consent: Per the patient Procedure: The patient underwent pharmacologic (Regadenoson 0.4mg ) evaluation with a peak heart rate of 105 beats per minute (73%predicted maximal heart rate) and a peak blood pressure of 150/98 mmHg. The baseline ECG demonstrated sinus rhythm. The peak pharmacologic ECG demonstrated 0.5 mm horizontal/downsloping ST segment depression in leads II, III, aVF, and V3 through V6 with gradual resolution towards baseline in recovery. There were no cardiac dysrhythmias pretest, during pharmacologic infusion, or recovery. There was no complaint of chest discomfort during pharmacologic infusion or recovery. The examination was discontinued secondary to completion of protocol. Impression: 1. Pharmacologic (Regadenoson) evaluation 2. Peak pharmacologic ECG with approximately 0.5 mm horizontal/downsloping ST segment depression in leads II, III, aVF, and V3 through V6 with gradual resolution towards baseline in recovery. 3. There were no cardiac dysrhythmias pretest, during pharmacologic infusion, or recovery. 4. Nuclear images pending Myocardial perfusion imaging study: Technique: The patient was injected with 10.6 millicuries of technetium 99m Cardiolite and subsequently rest SPECT Cardiolite nuclear imaging was obtained in the horizontal long, vertical long, and short axis views. The patient underwent pharmacologic (Regadenoson) evaluation with a peak heart rate of 105 beats per minute (73% percent predicted maximal heart rate) and a peak blood pressure of 150/98 mmHg. The patient was injected with 33.0 millicuries of technetium 99m Cardiolite and subsequently stress SPECT Cardiolite nuclear imaging was obtained in the horizontal long, vertical long, and short axis views. A gated Cardiolite study at peak stress was obtained. Interpretation: Rest and stress SPECT Cardiolite nuclear imaging status post realignment, normalization, and attenuation correction demonstrate status post stress the appearance of diminished myocardial perfusion/tracer uptake in portions of the distal anterior, distal anteroseptal, anteroapical, and septal apical segments. There are similar type findings on the resting and stress polar map images. There is end systolic thickening and brightening. The gated Cardiolite study demonstrates myocardial thickening and inward wall motion. The reported LVEF is 84%. Impression: 1. Rest and stress SPECT her nuclear imaging demonstrate myocardial perfusion concerning for an area of stress-induced myocardial ischemia in portions of the distal anterior, distal anteroseptal, anteroapical, and septal apical segments. 2. The gated Cardiolite study reports an LVEF of 84%. This note was generated with Extraprise[employer] software. It may contain incorrect words, spelling, and punctuation that were not noted in checking the note before signing.
== END ==
LOC: CVS 06:30
PROVIDERS: PCP Internal Medicine; Referring Provider Internal Medicine Cardiovascular Disease; Visit Provider Internal Medicine Cardiovascular Disease
DX: R06.02 Shortness of breath (principal); R60.0 Localized edema; I10 Essential (primary) hypertension
CPT/HCPCS: 78452; 93017; 93306; A9500; A4216; J2785

== ENCOUNTER 2020-08-18 07:40 | Emergency (ER) | payer MEDICARE, SELFPAY ==
[2020-07-30 11:31] VITALS: BMI 29.0
[2020-08-18 07:41] VITALS: BP 214/104; PULSE 67; RESP 20; TEMP 36.3; O2SAT 97; BMI 28.7
--- NOTE | 2020-08-18 08:00 | CT_ITS ---
STUDY: CT BRAIN WITHOUT CONTRAST REASON FOR EXAM: Female, 79 years old. Vertigo. History of Meniere''s disease. RADIATION DOSAGE (If Supplied By Facility): CTDIvol = ( 44.99 ) mGy, DLP = ( 779.24 ) mGycm TECHNIQUE: Transaxial CT imaging of the brain was performed without administration of intravenous contrast material. Individualized dose optimization techniques were used for this CT. COMPARISON: Comparison is made with prior study dated 11/17/2016. FINDINGS: Normal soft tissue structures. Normal calvarium. There is mild cerebral atrophy with widening of the extra-axial spaces and ventricular dilatation. There are areas of decreased attenuation within the white matter tracts of the supratentorial brain, consistent with microvascular disease changes. Old lacunar infarct in the head of the caudate nucleus on the right side. Normal brainstem. Normal cerebellum. There is no intracranial hemorrhage. There are no findings of an acute ischemic infarction. Atherosclerotic plaque formation of the vertebral arteries and cavernous portions of the internal carotid arteries bilaterally. Normal visualized paranasal sinuses. CT/Brain/Head without Contrast IMPRESSION: Chronic involutional changes of the brain. Electronically Signed: Adilson Golden MD at 8:40 EDT , Service support ,
--- NOTE | 2020-08-18 08:00 | EKG12_ITS ---
Test Reason : DIZZINESS Blood Pressure : / mmHG Vent. Rate : 056 BPM Atrial Rate : 056 BPM P-R Int : 188 ms QRS Dur : 092 ms QT Int : 472 ms P-R-T Axes : 057 018 059 degrees QTc Int : 455 ms Sinus bradycardia Otherwise normal ECG Confirmed by LINA ALVARENGA, GHASSAN ([id number]), restaurant expeditor PATEL FARRAR ([id number]) on 08/23/2020 1:20:59 PM Referred By: MR Confirmed By:GHASSAN MILLS MD
--- NOTE | 2020-08-18 08:03 | EX.ED.DYSGE1 ---
HPI History of Present Illness Chief Complaint: Dizziness Narrative Narrative: Patient presenting for evaluation secondary to dizziness. 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 She has had a history of DVTs and PEs used to be on anticoagulants, had some intolerance to that and now currently is only on aspirin. Patient states that last night she had an onset of dizziness. She states that she was doing well, she got up from the couch to go eat a banana and when she got back to the living room she had a sudden onset of dizziness. She does describe this as a spinning type sensation. It seems to be worse with sitting upright and better with laying flat. Patient does state that she had some spots in her vision but no visual field cuts. She did not have any slurred speech numbness or weakness or any difficulty with ambulation. Patient states that she is still having the symptoms this morning. She denies any headache or neck pain. Patient does have a history of hypertension with titration of her antihypertensives within the last week. She denies any recent head trauma. She denies any tinnitus. She denies any recent neck injuries or chiropractic manipulations. Review of systems otherwise negative. [facility] Medical History Anxiety Back problem Chronic back pain Depression DVT (deep venous thrombosis) Edema of right lower leg Essential hypertension GERD (gastroesophageal reflux disease) Hiatal hernia History of GI bleed History of pneumonia History of pulmonary embolism Hyperglycemia Insomnia Iron deficiency anemia Migraines Nonrheumatic aortic (valve) stenosis Polysubstance dependence Presence of IVC filter Presence of vena cava filter Pure hypercholesterolemia SOB (shortness of breath) Home Medications aspirin 81 mg tablet,delayed release 81 mg PO DAILY 05/01/18 [History Last Taken Unknown] metoprolol tartrate 50 mg tablet 25 mg PO BID #180 tablet 07/30/20 [Rx Last Taken Unknown] meclizine 25 mg PO 4X/DAY PRN PRN #20 tab 08/18/20 [Rx Last Taken Unknown] ondansetron 4 mg PO Q8H PRN PRN #10 tab 08/18/20 [Rx Last Taken Unknown] Allergy/AdvReac Type Severity Reaction Status Date / Time sumatriptan [From Imitrex] Allergy Severe Chest Verified 08/18/20 07:41 tightness sumatriptan succinate Allergy Severe Chest Verified 08/18/20 07:41 [From Imitrex] tightness Family History Brother Alcoholism Mother Bladder cancer Surgical History h/o gallbladder H/O laminectomy History of back surgery History of bilateral cataract extraction Hx of cholecystectomy Social History Smoking Status: Former smoker alcohol intake: never substance use type: does not use caffeine: No what type of physical activity do you participate in: walking frequency: 3-4 times per week ROS ROS ED Constitutional Constitutional ED: Denies chills or fever(s) ENT ENT ED: Denies rhinorrhea Cardiovascular Cardiovascular: Denies chest pain Respiratory/Chest Respiratory/Chest: Denies cough or dyspnea Gastrointestinal Gastrointestinal: Denies abdominal pain, diarrhea, nausea or vomiting Genitourinary Genitourinary ED: Denies dysuria or hematuria Musculoskeletal Musculoskeletal: Denies back pain Integumentary Denies rash Neurologic Neurologic: Reports other Details: Vertigo ; Denies paresthesias or weakness Psychiatric Psychiatric: Denies depression Endocrine Endocrinology: Denies fatigue Allergic/Immunologic Allergic/Immunologic ED: Denies urticaria EXAM Physical Exam Const Vital Signs: 08/18/20 07:41 08/18/20 08:11 Temperature 97.4 F L Temperature Source Temporal Pulse Rate 67 58 L Respiratory Rate 20 H 16 Blood Pressure 214/104 H 222/88 H Blood Pressure Mean 140 132 Pulse Ox 97 99 Oxygen Delivery Method Room Air Room Air Positive well nourished and well developed General Appearance ED: well developed and NAD HEENT Reports moist mucous membranes HEENT Narrative: No carotid bruits noted Negative for trauma or tenderness Eyes PERRL and EOMs intact bilaterally Eyes Narrative: No nystagmus noted Neck no lymphadenopathy, supple and no JVD Chest Wall inspection of chest normal Resp normal respiratory effort and clear to auscultation bilaterally Cardio regular rate, regular rhythm, no murmurs and peripheral pulses 2+ throughout GI normal to inspection, nondistended, normoactive bowel sounds, non-tender and no masses Palpation: soft Back/Spine normal to inspection Extremity normal to inspection General Extremety ED: Negative for tenderness Neuro oriented x3 and no sensory deficits noted Neuro Narrative: Normal [id number]-oz-zwdy test, no evidence of ataxia. Patient has reproduction of her dizziness upon sitting up and improvement with lying flat with no obvious nystagmus with these maneuvers. Sensorium / Orientation: alert Motor Exam: strength 5/5 throughout Psych mental status grossly normal Skin no rashes or lesions noted MDM MDM MDM Narrative Medical decision making narrative: Patient presenting secondary to dizziness. Patient was noted to be hypertensive, her blood pressure did trend downward without intervention to the 180s systolic, she had recent titration of her blood pressure medications. Patient's symptoms seemed very positional, she did not have obvious nystagmus but this seems rather peripheral in etiology but she does have a history of hypertension and some coagulopathy issues so I did perform CT imaging and lab work. CBC chemistry and troponin were found to be unremarkable. EKG unremarkable. CT imaging of the brain per radiology was found to be unremarkable. Patient was given a dose of meclizine and did have improvement of her dizziness. Given the sudden onset sudden offset and nausea vomiting associated with this I do feel that it is peripheral. Patient will be discharged with a course of Zofran and meclizine. She was instructed to follow-up with primary care. She understands signs and symptoms for which to return. Lab Data Labs: Laboratory Results - last 24 hr 08/18/20 08/18/20 08:20 08:20 WBC 5.9 RBC 4.47 Hgb 12.6 Hct 38.1 MCV 85.2 MCH 28.2 MCHC 33.1 RDW Std Deviation 39.1 RDW Coeff of Karlie 12.7 Plt Count 219 MPV 9.3 Immature Gran % (Auto) 0.500 Neut % (Auto) 77.6 H Lymph % (Auto) 14.2 L Jasper % (Auto) 5.9 Eos % (Auto) 1.0 Baso % (Auto) 0.8 Absolute Neuts (auto) 4.6 Absolute Lymphs (auto) 0.84 Nucleated RBC % 0 Sodium 138 Potassium 3.7 Chloride 105 Carbon Dioxide 28.0 Anion Gap 5 BUN 22 H Creatinine 0.77 Estim Creat Clear Calc 35.55 Est GFR (MDRD) Af Amer 93 Est GFR (MDRD) Non-Af 77 BUN/Creatinine Ratio 28.5 H Glucose 103 Calcium 9.0 Troponin I < 0.015 Radiography Diagnostic Testing: Radiology Impression Brain CT 08/18/20 08:00 IMPRESSION: Chronic involutional changes of the brain. Electronically Signed: Adilson Golden MD at 8:40 EDT , Service support , EKG Initial EKG: Attestation: I personally reviewed and interpreted this EKG as follows: (Sinus rhythm of [address] segments, normal T waves, normal PA and QTc intervals no evidence of acute ischemia or arrhythmia) Discharge Plan Triage Chief Complaint: Dizziness ED Provider: Pro Crespo Dx/Rx/DC Orders Clinical Impression: Vertigo Instructions: ED BPV Vertigo Prescriptions: New ondansetron 4 mg tablet,disintegrating 4 mg PO Q8H PRN PRN (Reason: Nausea) Qty: 10 RF: 0 meclizine 25 mg tablet 25 mg PO 4X/DAY PRN PRN (Reason: Dizziness) Qty: 20 RF: 0 No Action aspirin 81 mg tablet,delayed release (DR/EC) 81 mg PO DAILY RF: 0 metoprolol tartrate 50 mg tablet 25 mg PO BID Qty: 180 RF: 3 Primary Care Provider: Nitin Tilley Referrals: Nitin Tilley MD [Primary Care Provider] - 3-5 Days Disposition Disposition: Home, self care
[2020-08-18 08:11] VITALS: BP 222/88; PULSE 58; RESP 16; O2SAT 99
[2020-08-18] MEDS: Meclizine HCl 25 MG Tablet PO (08:20)
[2020-08-18 08:24] LABS: Absolute Lymphocyte Count 0.84 X10^3/uL (0.83-4.51); Absolute Neutrophil Count 4.6 X10^3/uL (2.0-7.7); Basophil# 0.05 X10^3/uL; Basophil% 0.8 % (0-1); Eosinophil# 0.06 X10^3/uL; Hematocrit 38.1 % (37-47); Hemoglobin 12.6 g/dL (12.0-15.0); Lymphocyte # 0.84 X10^3/ul (0.83-4.51); Lymphocyte % 14.2 % (19-41); Mean Corp Hgb Conc 33.1 g/dL (32-36); Mean Corpuscular Hgb 28.2 pg (27.0-32.0); Mean Corpuscular Volume 85.2 fL (81-99); Mean Platelet Vol. 9.3 fl (6.2-12.0); Monocyte# 0.35 X10^3/uL; Monocyte% 5.9 % (0-10); NRBC Flagged by Analyzer 0 % (0-5); Neutrophil # 4.59 X10^3/uL (2.7-7.7); Neutrophil % 77.6 % (47-70); Platelet Count 219 K/mm3 (150-450); RBC Distribution Width CV 12.7 % (11.6-14.6); RBC Distribution Width SD 39.1 fl (35.1-43.9); Red Blood Count 4.47 M/mm3 (4.2-5.4); White Blood Count 5.9 K/mm3 (4.4-11.0)
[2020-08-18 08:44] LABS: Anion Gap 5 (5-15); BUN 22 mg/dL (7-18); BUN/Creat Ratio 28.5 RATIO (10-20); Chloride 105 mmol/L (98-107); Creatinine, Serum 0.77 mg/dL (0.55-1.02); EST Glomerular Filtration Rate 77 mL/min (>60); Est Glom Filt Rate - Afr Amer 93 mL/min (>60); Estimated Creatinine Clearance 35.55 ml/min; Glucose 103 mg/dL (74-106); Potassium 3.7 mmol/L (3.5-5.1); Sodium Level 138 mmol/L (136-145)
[2020-08-18 09:28] VITALS: BP 200/98; PULSE 57; RESP 15; O2SAT 98
[2020-08-18] MEDS: Ondansetron ODT 4 MG Tablet PO (09:33)
== END 2020-08-18 09:33 | disposition home or self-care (01) ==
PROVIDERS: Emergency Provider Emergency Medicine; PCP Internal Medicine
DX: R42 Dizziness and giddiness (principal); I10 Essential (primary) hypertension; E78.00 Pure hypercholesterolemia, unspecified; Z79.82 Long term (current) use of aspirin; Z79.899 Other long term (current) drug therapy; Z86.711 Personal history of pulmonary embolism; Z86.718 Personal history of other venous thrombosis and embolism; Z87.891 Personal history of nicotine dependence
CPT/HCPCS: 70450; 80048; 84484; 85025; 93005; 99285

== ENCOUNTER 2020-08-31 08:21 | Day surgery (SDC) | payer MEDICARE, SELFPAY ==
[2020-07-30 11:31] VITALS: BMI 29.0
[2020-08-26 11:13] LABS: Hemoglobin 12.5 g/dL (12.0-15.0); Mean Corp Hgb Conc 31.3 g/dL (32-36); Mean Corpuscular Hgb 27.2 pg (27.0-32.0); Mean Platelet Vol. 10.3 fl (6.2-12.0); Platelet Count 256 K/mm3 (150-450); RBC Distribution Width CV 13.1 % (11.6-14.6); RBC Distribution Width SD 41.1 fl (35.1-43.9); White Blood Count 6.5 K/mm3 (4.4-11.0)
[2020-08-26 11:18] LABS: International Normalized Ratio 1.1; Prothrombin Time (Protime)PT. 13.5 SECONDS (11.7-14.9)
[2020-08-26 11:19] LABS: Partial Thromboplast Time 33.2 Seconds (24.1-36.2)
[2020-08-26 11:31] LABS: Anion Gap 4 (5-15); BUN 21 mg/dL (7-18); BUN/Creat Ratio 22.5 RATIO (10-20); Chloride 110 mmol/L (98-107); Creatinine, Serum 0.94 mg/dL (0.55-1.02); EST Glomerular Filtration Rate 62 mL/min (>60); Est Glom Filt Rate - Afr Amer 75 mL/min (>60); Glucose 114 mg/dL (74-106); Potassium 3.8 mmol/L (3.5-5.1); Sodium Level 140 mmol/L (136-145)
[2020-08-30 08:28] VITALS: BMI 29.0
--- NOTE | 2020-08-30 12:37 | HP.PCM_ITS ---
Documented by User: Vinh Pineda NP, COMMUNICATIONS ADMINISTRATOR-C 08/30/20 16:37 History and Physical This is a 79-year-old white female who presents to the [facility] today based upon concerns of progressive shortness of breath/dyspnea and lower extremity peripheral pitting edema superimposed upon a history of hypertension. She states that over time she has been progressively short of breath and dyspneic especially with exertional activity. She notes this occurs with walking such as to and from the mailbox. However she states she can ride her stationary bicycle and not necessarily have the same sensation. She underwent echocardiogram on 08/13/2020 that showed an ejection fraction of 70%, mild concentric LVH, mildly enlarged left atrium, and mild aortic valve stenosis. She underwent a stress test on 08/13/2020 that showed an area of stress-induced myocardial ischemia in portions of the distal anterior, distal anteroseptal, anteroapical, and septal apical segments. Due to her test results and symptoms, she will proceed with heart catheterization. Intake Vital Signs: See EMR Intake Visit Reasons: [facility] Lead Sustainability Specialist Required: No Accompanied by: Self Allergies sumatriptan [From Imitrex] Allergy (Severe, Verified 07/30/20 11:31) Chest tightness sumatriptan succinate [From Imitrex] Allergy (Severe, Verified 07/30/20 11:31) Chest tightness Medications See EMR [facility] Medical History SOB (shortness of breath) (Acute) Edema of right lower leg (Acute) Essential hypertension (Chronic) GERD (gastroesophageal reflux disease) (Chronic) History of pulmonary embolism (Acute) Anxiety (Chronic) Back problem (Chronic) Chronic back pain (Chronic) Depression (Chronic) Hiatal hernia (Chronic) History of GI bleed (Chronic) Hyperglycemia (Chronic) Insomnia (Chronic) Migraines (Chronic) Polysubstance dependence (Chronic) Presence of IVC filter (Chronic) Presence of vena cava filter (Chronic) DVT (deep venous thrombosis) (Resolved) History of pneumonia (Resolved) Iron deficiency anemia (Resolved) Surgical History History of back surgery (Resolved) History of bilateral cataract extraction (Resolved) Hx of cholecystectomy (Resolved) H/O laminectomy (Inactive) h/o gallbladder (Inactive) Family History Brother Alcoholism Mother Bladder cancer Social History (Updated 07/30/20 @ 12:[address] Toy Quinn MD) Smoking Status: Former smoker alcohol intake: never substance use type: does not use caffeine: No what type of physical activity do you participate in: walking frequency: 3-4 times per week ROS Const Const: Negative for fatigue, weakness, body ache, fever(s), headache(s), chills, frequent falls, night sweats, daytime sleepiness, difficulty sleeping, excessive sweating, weight gain, weight loss, increased appetite, poor appetite, anorexia or other Eyes Eyes: Negative for transient loss of vision, blurry vision or change in vision ENT ENT: Negative for headache(s), dizziness or balance problems Cardio Chest Pain: No Palpitations: Yes (occasional) feels like its: fast Edema: Bilateral (LE, slight) Muscle aches with walking: None Resp Respiratory: Positive for SOB with activity (new) and Cough (dry); negative for SOB at rest GI GI: Negative vomiting or vomiting blood/hematemesis : Negative for hematuria Musc Musc: Negative for muscle aches/ myalgia, muscle weakness, joint pain or balance problems Skin Skin: Negative non-healing lesions or rash Neuro Neuro: Negative for dizziness, lightheadedness, orthostatic symptoms, frequent falls, headache(s), weakness or blurry vision Ean Hematologic/Lymphatic: Negative for easy bleeding Endo Endo: Negative for fatigue or excessive sweating Psych Psych: Negative for anxiety or depression Allergy Allergy/Immunology: Negative for hives, Negative for rash Cardiology Exam Const Appearance: cooperative, healthy appearing, comfortable, no acute distress, well developed and well groomed Nutritional Appearance: overweight Orientation: alert, awake and oriented x3 Head Head: normal to inspection, normocephalic and atraumatic Ears: hearing grossly normal bilaterally Nose: external nose normal Face and Sinus: face symmetric Eyes Eyelids: eyelids normal Conjunctivae: conjunctivae normal Pupils: PERRL EOM: EOM intact bilaterally Neck Neck: normal visual inspection and full ROM Carotids: normal carotid upstroke Chest Chest inspection: normal inspection of the chest, symmetric chest movement and normal respiratory effort Auscultation: Bilateral: Clear to Auscultation Cardio Palpation: normal PMI Rate: regular rate Rhythm: regular rhythm Heart sounds: S1 normal and S2 normal Murmur: Grade 2/6, soft, LLSB and LVOT GI GI: normal to inspection, soft and bowel sounds present Neuro General: alert, awake, oriented x3 and moves all extremities Skin Skin: no rashes or lesions noted Extremities Pulses: Normal: Right Radial Pulse, Left Radial Pulse, Diminished: Right Dorsalis Pedis Pulse, Left Dorsalis Pedis Pulse, Right Posterior Tibial Pulse, Left Posterior Tibial Pulse Lower Extremity Edema: +2: Bilateral Psych Psychological: normal affect Assessment & Plan 1. Shortness of breath R06.02 Plan Patient's most recent echocardiogram showed an ejection fraction of 70% and mild aortic valve stenosis. Her stress test considered to be abnormal. Thus, she will proceed with heart catheterization to assess further. Based on results, further recommendation will be made. 2. Edema of right lower leg R60.0 Plan Her nifedipine was placed on hold after last office visit. 3. Essential hypertension I10 Plan She will continue to have her blood pressure monitor going forward as deemed appropriate. 4. Nonrheumatic mitral valve regurgitation I34.0 Plan Her echocardiogram on 08/13/2020 showed mitral annular calcification with trivial mitral valve insufficiency. We will continue to follow this over time. Additional Comments Thank you for allowing us to participate in the patients plan of care, if you have any questions please do not hesitate to call. This note was generated with Starvine dictation software. It may contain incorrect words, spelling, and punctuation that were not noted in checking the note before signing. Supplemental Info Supplemental Information Echocardiogram from 08/13/2020: Interpretation Summary The study was technically difficult. Left ventricular systolic function is normal. The estimated ejection fraction is 70 %. Mild concentric left ventricular hypertrophy. The left atrium is mildly enlarged. There is mild mitral annular calcification. Extension of the mitral annular calcification on the base of the posterior mitral valve leaflet. Trivial mitral valve insufficiency. Trivial tricuspid valve insufficiency. Mild aortic stenosis. Trivial aortic valve insufficiency. Trivial pulmonic valve insufficiency. Right ventricular systolic pressure estimated to be 32 mmHg. Diastolic function is indeterminate. Transthoracic echocardiogram: 06/07/2017 Interpretation Summary Left ventricular systolic function is normal. The estimated ejection fraction is 60 %. The left atrium is moderately enlarged. Mild (1+) mitral valve insufficiency. Trivial tricuspid valve insufficiency. Mild focal aortic valve thickening. Trivial aortic valve insufficiency. Trivial pulmonic valve insufficiency. Right ventricular systolic pressure estimated to be 35 mmHg. Transmitral diastolic flow velocities suggest diastolic dysfunction. Stress Test Report Date: 08-13-2020 Procedure: Pharmacologic stress nuclear imaging study Indications: Shortness of breath/dyspnea on exertion Consent: Per the patient Procedure: The patient underwent pharmacologic (Regadenoson 0.4mg ) evaluation with a peak heart rate of 105 beats per minute (73%predicted maximal heart rate) and a peak blood pressure of 150/98 mmHg. The baseline ECG demonstrated sinus rhythm. The peak pharmacologic ECG demonstrated 0.5 mm horizontal/downsloping ST segment depression in leads II, III, aVF, and V3 through V6 with gradual resolution towards baseline in recovery. There were no cardiac dysrhythmias pretest, during pharmacologic infusion, or recovery. There was no complaint of chest discomfort during pharmacologic infusion or recovery. The examination was discontinued secondary to completion of protocol. Impression: 1. Pharmacologic (Regadenoson) evaluation 2. Peak pharmacologic ECG with approximately 0.5 mm horizontal/downsloping ST segment depression in leads II, III, aVF, and V3 through V6 with gradual resolution towards baseline in recovery. 3. There were no cardiac dysrhythmias pretest, during pharmacologic infusion, or recovery. 4. Nuclear images pending Myocardial perfusion imaging study: Technique: The patient was injected with 10.6 millicuries of technetium 99m Cardiolite and subsequently rest SPECT Cardiolite nuclear imaging was obtained in the horizontal long, vertical long, and short axis views. The patient underwent pharmacologic (Regadenoson) evaluation with a peak heart rate of 105 beats per minute (73% percent predicted maximal heart rate) and a peak blood pressure of 150/98 mmHg. The patient was injected with 33.0 millicuries of technetium 99m Cardiolite and subsequently stress SPECT Cardiolite nuclear imaging was obtained in the horizontal long, vertical long, and short axis views. A gated Cardiolite study at peak stress was obtained. Interpretation: Rest and stress SPECT Cardiolite nuclear imaging status post realignment, normalization, and attenuation correction demonstrate status post stress the appearance of diminished myocardial perfusion/tracer uptake in portions of the distal anterior, distal anteroseptal, anteroapical, and septal apical segments. There are similar type findings on the resting and stress polar map images. There is end systolic thickening and brightening. The gated Cardiolite study demonstrates myocardial thickening and inward wall motion. The reported LVEF is 84%. Impression: 1. Rest and stress SPECT her nuclear imaging demonstrate myocardial perfusion concerning for an area of stress-induced myocardial ischemia in portions of the distal anterior, distal anteroseptal, anteroapical, and septal apical segments. 2. The gated Cardiolite study reports an LVEF of 84%. COVID (Procedure Consent) Procedure Criteria Procedure Criteria: Yes Elective The surgeon/proceduralist and patient have discussed in detail the risk of exposure to and/or potential harm posed by the COVID-19 virus with having a surgery/procedure at this time versus the risk of delaying the surgery/procedure. It is not possible to know either the risk of delaying the surgery or procedure or chance of getting an infection with perfect accuracy, but a joint decision was made between the patient and the surgeon/proceduralist to proceed at this time with the scheduled surgery/procedure as indicated on the consent form. Documented by User: Dr. Toy Quinn MD 08/31/20 07:55 History and Physical Date of Admission: 08/31/20 I have re-examined the patient. There are no clinical changes since date of exam.
--- NOTE | 2020-08-31 10:43 | CL.D_ITS ---
Patient Name: LYDIA FRENANDO Study Date: 08/31/2020 Performing: Toy Quinn MD Ht: 61.41 inches 156 cm : 1940 Wt: 156.53 lbs 71 kg Age: 79 Gender: female BSA: 1.71 PROCEDURE(S) PERFORMED BU60-WDJ/COR/LV CLINICAL PROFILE AND INDICATIONS Indications: Worsening Angina, Suspected CAD Heart Failure: None Stress/Imaging Date: 08/13/2020 Angina Classification Anginal Classification w/in 2 Weeks: Anginal Equivalent Dyspnea CAD Presentations: Other: accelerating angina pectoris CONCLUSIONS Elevated Left Ventricular End Diastolic Pressure Normal LV size, wall motion,and systolic function LVEF: by LV gram 65 % [place] Multivessel CAD Collateral Flow: right to left Mitral Valve Insufficiency Moderate (Post PVC) Comment: LAD fills late RECOMMENDATIONS Risk factor modification Medical therapy Surgery consult for coronary revascularization DESCRIPTION OF PROCEDURE The patient arrived to the procedure lab. The risks and benefits of the procedure as well as a full d escription of our services here and current unavailability of surgical backup were fully explained to the patient and/or their significant other prior to the catheterization. The Timeout was completed, verifying the correct patient and procedure. The patient's procedural site was prepped and draped in the usual fashion. Local anesthetic was given subcutaneously to right radial region with Lidocaine 2% . Using a modified Seldinger technique, arterial access was obtained via the right radial artery, a 6 Fr sheath was inserted. Right Coronary Artery selective angiography was then performed in multiple v iews using a 5 Fr. 4.0 Spencer catheter. Left Coronary Artery selective angiography was performed in mu ltiple views using a 5 Fr. 4.0 Spencer catheter. Left Ventriculography was performed in MORRELL projection using a 5 Fr. Pigtail catheter. LV to AO pullback pressures were then recorded.The arterial sheath was pulled and a TR Band was applied for hemostasis-18 cc air CORONARY ANGIOGRAPHY DOMINANCE: Right Dominant LEFT HEART ASSESSMENT Left Ventricular Ejection Fraction: by LV Gram 65 % Normal LV wall motion Elevated Left Ventricular End Diastolic Pressure LVEDP: 39 mmHg LEFT MAIN: Mild calcification, distal: eccentric: 25 % Stenosis LEFT ANTERIOR DESCENDING ARTERY: PROX LAD: Severe calcification, long: diffuse: irregular: 25 % Stenosis MID LAD: Moderate calcification, 99 % Stenosis, 99 % Stenosis DISTAL LAD: 95 % Stenosis CIRCUMFLEX ARTERY: OM 1: Proximal - long: diffuse: 85 % Stenosis (pre bifurcation) RIGHT CORONARY ARTERY: PROX RCA: Moderate calcification, long: diffuse: irregular: 75 % Stenosis MID RCA: Mild calcification RT PDA: Mid - 50 % Stenosis ACUTE MARGINAL: 95 % Stenosis COLLATERAL FLOW: Collateral flow from Right to Left VALVE FINDINGS: Mitral Valve Insufficiency - Grade 2 (post PVC) AORTIC ROOT: Angiographically normal COMPLICATIONS No Complications PROCEDURE MEDICATIONS Versed 1 mg IV Fentanyl 50 mcg IV Oxygen: 2 L/min via nasal cannula Baby Aspirin (81mg) 1 Tabs PO @ 08/31/2020 08:39:42 SUMMARY OF HEMODYNAMIC DATA Time AIR REST ECG 08:40:57 AO 168/86 (119) SA 09:51:19 LV 177/12, 31 10:05:22 LV 170/12, 39 10:05:29 LV 174/13, 31 10:06:35 LVp 187/27, 32 10:06:47 AOp 170/69 (105) 10:06:52 Signed By Toy Quinn MD On 08/31/2020 10:42:41 Toy Quinn MD
--- NOTE | 2020-08-31 10:44 | NURSING ---
According to patient Insurance Melissa Bowers, In [facility]: [facility], Maria Eugenia, MELODIE, . Ghada Longoria RNCM
== END 2020-08-31 15:40 | disposition short-term general hospital (02) ==
LOC: CLSP 08:23
PROVIDERS: PCP Internal Medicine; Referring Provider Internal Medicine Cardiovascular Disease; Visit Provider Internal Medicine Cardiovascular Disease
DX: I25.110 Atherosclerotic heart disease of native coronary artery with unstable angina pectoris (principal); I10 Essential (primary) hypertension; I34.0 Nonrheumatic mitral (valve) insufficiency; E78.5 Hyperlipidemia, unspecified; E66.3 Overweight; R06.02 Shortness of breath; R60.0 Localized edema; Z79.82 Long term (current) use of aspirin; Z79.02 Long term (current) use of antithrombotics/antiplatelets; Z79.899 Other long term (current) drug therapy; Z87.891 Personal history of nicotine dependence
CPT/HCPCS: 36415; 80048; 85027; 85610; 85730; 93458; 99152; 99153; J7040; Q9967; C1769; C1894

== ENCOUNTER → 2020-10-26 15:36 | Outpatient (CLI) | payer MEDICARE, SELFPAY ==
[2020-10-26 11:10] VITALS: BMI 26.4
[2020-10-26 16:08] LABS: Absolute Lymphocyte Count 1.41 X10^3/uL (0.83-4.51); Absolute Neutrophil Count 5.8 X10^3/uL (2.0-7.7); Basophil# 0.06 X10^3/uL; Basophil% 0.7 % (0-1); Eosinophil# 0.13 X10^3/uL; Eosinophils% 1.6 % (0-5); Hematocrit 37.8 % (37-47); Hemoglobin 11.8 g/dL (12.0-15.0); Lymphocyte # 1.41 X10^3/ul (0.83-4.51); Lymphocyte % 17.6 % (19-41); Mean Corp Hgb Conc 31.2 g/dL (32-36); Mean Corpuscular Hgb 26.7 pg (27.0-32.0); Mean Corpuscular Volume 85.5 fL (81-99); Mean Platelet Vol. 9.1 fl (6.2-12.0); Monocyte# 0.61 X10^3/uL; Monocyte% 7.6 % (0-10); NRBC Flagged by Analyzer 0 % (0-5); Neutrophil # 5.75 X10^3/uL (2.7-7.7); Neutrophil % 71.9 % (47-70); Platelet Count 380 K/mm3 (150-450); RBC Distribution Width CV 13.9 % (11.6-14.6); RBC Distribution Width SD 42.9 fl (35.1-43.9); Red Blood Count 4.42 M/mm3 (4.2-5.4)
[2020-10-26 16:51] LABS: BNP,B-Type NATRIURETIC PEPTIDE 70.9 pg/mL (0-100)
[2020-10-26 16:55] LABS: Vitamin D,25 Hydroxy 16.8 ng/mL
[2020-10-26 17:01] LABS: AST(SGOT) 19 U/L (15-37); Alanine Aminotransfer ALT/SGPT 28 U/L (13-56); Albumin, Serum 4.1 g/dL (3.2-5.0); Alkaline Phosphatase 97 U/L (45-117); Anion Gap 6 (5-15); BUN 18 mg/dL (7-18); BUN/Creat Ratio 20.3 RATIO (10-20); Calcium,Total 9.5 mg/dL (8.5-10.1); Chloride 100 mmol/L (98-107); Creatinine, Serum 0.88 mg/dL (0.55-1.02); EST Glomerular Filtration Rate 66 mL/min (>60); Est Glom Filt Rate - Afr Amer 79 mL/min (>60); Globulin 4.1 g/dL (2.2-4.2); Glucose 117 mg/dL (74-106); Magnesium 2.3 mg/dL (1.6-2.6); Potassium 3.5 mmol/L (3.5-5.1); Protein, Total 8.2 g/dL (6.4-8.2); Sodium Level 135 mmol/L (136-145); T4 Free Direct 1.05 ng/dL (0.76-1.46); Thyroid Stim Hormone (TSH) 4.24 uIU/mL (0.358-3.74)
== END ==
PROVIDERS: PCP Internal Medicine; Visit Provider Nurse Practitioner Family
DX: I25.10 Atherosclerotic heart disease of native coronary artery without angina pectoris (principal); I97.89 Other postprocedural complications and disorders of the circulatory system, not elsewhere classified; I10 Essential (primary) hypertension; E78.00 Pure hypercholesterolemia, unspecified; I48.91 Unspecified atrial fibrillation; R06.02 Shortness of breath; R53.1 Weakness; R53.83 Other fatigue; K21.9 Gastro-esophageal reflux disease without esophagitis; E55.9 Vitamin D deficiency, unspecified; Z95.1 Presence of aortocoronary bypass graft
CPT/HCPCS: 36415; 80053; 82306; 83735; 83880; 84439; 84443; 85025

== ENCOUNTER → 2020-12-08 07:46 | Outpatient (CLI) | payer MEDICARE, SELFPAY ==
[2020-12-08 09:28] LABS: AST(SGOT) 12 U/L (15-37); Alanine Aminotransfer ALT/SGPT 17 U/L (13-56); Albumin, Serum 3.9 g/dL (3.2-5.0); Alkaline Phosphatase 65 U/L (45-117); Bilirubin, Direct 0.07 mg/dL (0.00-0.30); Cholesterol 234 mg/dL (200); Globulin 4.2 g/dL (2.2-4.2); High Density Lipoprotein 51 mg/dL; Protein, Total 8.1 g/dL (6.4-8.2); Triglycerides 185 mg/dL; Very Low Density Lipoprotein 37 mg/dL (5-40)
[2020-12-08 09:50] LABS: Anion Gap 7 (5-15); BUN 21 mg/dL (7-18); BUN/Creat Ratio 22.3 RATIO (10-20); Calcium,Total 9.7 mg/dL (8.5-10.1); Chloride 107 mmol/L (98-107); Creatinine, Serum 0.94 mg/dL (0.55-1.02); EST Glomerular Filtration Rate 61 mL/min (>60); Est Glom Filt Rate - Afr Amer 74 mL/min (>60); Glucose 104 mg/dL (74-106); Potassium 3.8 mmol/L (3.5-5.1); Sodium Level 140 mmol/L (136-145)
== END ==
PROVIDERS: Nurse Practitioner Family; PCP Internal Medicine; Referring Provider Internal Medicine Cardiovascular Disease; Visit Provider Internal Medicine Cardiovascular Disease
DX: I25.10 Atherosclerotic heart disease of native coronary artery without angina pectoris (principal); I35.0 Nonrheumatic aortic (valve) stenosis; I10 Essential (primary) hypertension; E78.00 Pure hypercholesterolemia, unspecified; R60.0 Localized edema
CPT/HCPCS: 36415; 80048; 80061; 80076

== ENCOUNTER 2021-01-11 10:24 | Outpatient (RCR) | payer MEDICARE, SELFPAY ==
[2020-12-24 10:48] LABS: Prothrombin Time (Protime)PT. 22.3 SECONDS (11.7-14.9)
[2020-12-31 12:23] LABS: International Normalized Ratio 2.9; Prothrombin Time (Protime)PT. 29.1 SECONDS (11.7-14.9)
[2021-01-07 11:11] LABS: Prothrombin Time (Protime)PT. 38.9 SECONDS (11.7-14.9)
[2021-01-07 11:16] LABS: International Normalized Ratio 4.1
[2021-01-11 11:20] LABS: Prothrombin Time (Protime)PT. 21.5 SECONDS (11.7-14.9)
== END 2021-01-11 18:00 | disposition home or self-care (01) ==
LOC: LAB 10:24
PROVIDERS: PCP Internal Medicine; Referring Provider Nurse Practitioner Family; Visit Provider Nurse Practitioner Family
DX: I48.91 Unspecified atrial fibrillation (principal); D68.51 Activated protein C resistance; I97.89 Other postprocedural complications and disorders of the circulatory system, not elsewhere classified; Z79.01 Long term (current) use of anticoagulants; Z86.711 Personal history of pulmonary embolism; Z86.73 Personal history of transient ischemic attack (TIA), and cerebral infarction without residual deficits
CPT/HCPCS: 36415; 85610

== ENCOUNTER 2021-01-31 15:35 | Outpatient (RCR) | payer MEDICARE, SELFPAY ==
[2021-01-31 17:00] LABS: International Normalized Ratio 1.7
[2021-01-31 17:07] LABS: Anion Gap 7 (5-15); BUN 23 mg/dL (7-18); BUN/Creat Ratio 24.1 RATIO (10-20); Calcium,Total 9.1 mg/dL (8.5-10.1); Chloride 106 mmol/L (98-107); Creatinine, Serum 0.96 mg/dL (0.55-1.02); EST Glomerular Filtration Rate 60 mL/min (>60); Est Glom Filt Rate - Afr Amer 73 mL/min (>60); Glucose 96 mg/dL (74-106); Potassium 5.1 mmol/L (3.5-5.1); Sodium Level 140 mmol/L (136-145); T4 Free Direct 0.86 ng/dL (0.76-1.46); Thyroid Stim Hormone (TSH) 2.41 uIU/mL (0.358-3.74)
== END 2021-02-13 23:59 ==
LOC: BIMLAB 15:35
PROVIDERS: PCP Internal Medicine; Referring Provider Nurse Practitioner Family; Visit Provider Nurse Practitioner Family
DX: I97.89 Other postprocedural complications and disorders of the circulatory system, not elsewhere classified (principal); Z79.01 Long term (current) use of anticoagulants; I48.91 Unspecified atrial fibrillation; D68.51 Activated protein C resistance; Z86.73 Personal history of transient ischemic attack (TIA), and cerebral infarction without residual deficits; Z86.711 Personal history of pulmonary embolism
CPT/HCPCS: 36415; 80048; 84439; 84443; 85610

== ENCOUNTER 2021-03-08 08:16 | Outpatient (RCR) | payer MEDICARE, SELFPAY ==
[2021-03-08 08:51] LABS: International Normalized Ratio 1.1; Prothrombin Time (Protime)PT. 13.9 SECONDS (11.7-14.9)
[2021-03-08 09:05] LABS: AST(SGOT) 15 U/L (15-37); Alanine Aminotransfer ALT/SGPT 16 U/L (13-56); Albumin, Serum 3.7 g/dL (3.2-5.0); Alkaline Phosphatase 63 U/L (45-117); Cholesterol 179 mg/dL (200); Globulin 3.9 g/dL (2.2-4.2); High Density Lipoprotein 53 mg/dL; Protein, Total 7.6 g/dL (6.4-8.2); Triglycerides 141 mg/dL; Very Low Density Lipoprotein 28 mg/dL (5-40)
== END 2021-03-15 18:00 | disposition home or self-care (01) ==
LOC: LAB 08:16
PROVIDERS: Internal Medicine Cardiovascular Disease; PCP Internal Medicine; Referring Provider Nurse Practitioner Family; Visit Provider Nurse Practitioner Family
DX: I97.89 Other postprocedural complications and disorders of the circulatory system, not elsewhere classified (principal); Z79.01 Long term (current) use of anticoagulants; I48.91 Unspecified atrial fibrillation; D68.51 Activated protein C resistance; Z86.73 Personal history of transient ischemic attack (TIA), and cerebral infarction without residual deficits; Z86.711 Personal history of pulmonary embolism; E78.00 Pure hypercholesterolemia, unspecified; I35.0 Nonrheumatic aortic (valve) stenosis; Z95.1 Presence of aortocoronary bypass graft; I25.10 Atherosclerotic heart disease of native coronary artery without angina pectoris
CPT/HCPCS: 36415; 80061; 80076; 85610

== ENCOUNTER 2021-03-24 09:50 | Outpatient (RCR) | payer MEDICARE, SELFPAY ==
[2021-03-16 10:43] LABS: International Normalized Ratio 1.5; Prothrombin Time (Protime)PT. 17.4 SECONDS (11.7-14.9)
[2021-03-24 10:41] LABS: International Normalized Ratio 1.8; Prothrombin Time (Protime)PT. 20.3 SECONDS (11.7-14.9)
== END 2021-04-16 18:00 | disposition home or self-care (01) ==
LOC: LAB 09:50
PROVIDERS: PCP Internal Medicine; Referring Provider Nurse Practitioner Family; Visit Provider Nurse Practitioner Family
DX: I97.89 Other postprocedural complications and disorders of the circulatory system, not elsewhere classified (principal); Z79.01 Long term (current) use of anticoagulants; I48.91 Unspecified atrial fibrillation; D68.51 Activated protein C resistance; Z86.73 Personal history of transient ischemic attack (TIA), and cerebral infarction without residual deficits; Z86.711 Personal history of pulmonary embolism; E78.00 Pure hypercholesterolemia, unspecified; I35.0 Nonrheumatic aortic (valve) stenosis; Z95.1 Presence of aortocoronary bypass graft; I25.10 Atherosclerotic heart disease of native coronary artery without angina pectoris
CPT/HCPCS: 36415; 85610

== ENCOUNTER → 2021-04-06 08:29 | Outpatient (CLI) | payer MEDICARE, SELFPAY | PROVIDERS: PCP Internal Medicine; Referring Provider Physician Assistant; Visit Provider Physician Assistant | DX: Z11.52 Encounter for screening for COVID-19 (principal) | CPT/HCPCS: 87635; U0005; U0003 ==

== ENCOUNTER 2021-08-24 08:15 | Outpatient (RCR) | payer MEDICARE, SELFPAY ==
[2021-08-23 09:13] LABS: International Normalized Ratio 3.2; Prothrombin Time (Protime)PT. 32.1 SECONDS (11.7-14.9)
[2021-08-24 09:12] LABS: AST(SGOT) 18 U/L (15-37); Alanine Aminotransfer ALT/SGPT 19 U/L (13-56); Albumin, Serum 3.6 g/dL (3.2-5.0); Alkaline Phosphatase 61 U/L (45-117); Bilirubin, Direct 0.14 mg/dL (0.00-0.30); Cholesterol 172 mg/dL (200); Globulin 3.7 g/dL (2.2-4.2); High Density Lipoprotein 56 mg/dL; Protein, Total 7.3 g/dL (6.4-8.2); Triglycerides 106 mg/dL; Very Low Density Lipoprotein 21 mg/dL (5-40)
== END 2021-08-24 18:00 | disposition home or self-care (01) ==
LOC: LAB 08:15
PROVIDERS: Internal Medicine Cardiovascular Disease; PCP Internal Medicine; Referring Provider Nurse Practitioner Family; Visit Provider Nurse Practitioner Family
DX: I97.89 Other postprocedural complications and disorders of the circulatory system, not elsewhere classified (principal); Z79.01 Long term (current) use of anticoagulants; I48.91 Unspecified atrial fibrillation; D68.51 Activated protein C resistance; Z86.73 Personal history of transient ischemic attack (TIA), and cerebral infarction without residual deficits; Z86.711 Personal history of pulmonary embolism; E78.00 Pure hypercholesterolemia, unspecified; I35.0 Nonrheumatic aortic (valve) stenosis; Z95.1 Presence of aortocoronary bypass graft; I25.10 Atherosclerotic heart disease of native coronary artery without angina pectoris
CPT/HCPCS: 36415; 80061; 80076; 85610

== ENCOUNTER → 2021-08-29 | Outpatient (CLI) | payer MEDICARE, SELFPAY | END | disposition home or self-care (01) | LOC: PSN 11:59 | PROVIDERS: PCP Internal Medicine; Visit Provider Internal Medicine Cardiovascular Disease | DX: I97.89 Other postprocedural complications and disorders of the circulatory system, not elsewhere classified (principal); I48.91 Unspecified atrial fibrillation; R00.2 Palpitations | CPT/HCPCS: 93225; 93226 ==

== ENCOUNTER → 2021-09-22 | Outpatient (CLI) | payer MEDICARE, SELFPAY ==
--- NOTE | 2021-09-22 12:00 | ECHOD_ITS ---
Reason For Study: , SOB Procedure This was a 2D Doppler, Color Flow transthoracic echocardiogram. The exam was of adequate technical quality. Exam performed in department. Left Ventricle Normal LV size. Left ventricular systolic function is normal. The estimated ejection fraction is 65 %. Diastolic function is indeterminate. No regional wall motion abnormalities noted. Right Ventricle Normal RV size. Normal systolic function. Atria Normal left atrium. Normal right atrium. No doppler evidence for ASD. Mitral Valve There is mild mitral annular calcification. Extension of the mitral annular calcification onto the base of the posterior mitral valve leaflet. Mild (1+) mitral valve insufficiency. Tricuspid Valve Normal tricuspid valve. Trivial tricuspid valve insufficiency. Right ventricular systolic pressure estimated to be 32 mmHg. Aortic Valve Trisinus/trileaflet aortic valve. Mild diffuse aortic valve thickening. Mild focal aortic valve calcification. Mild aortic stenosis. Trivial aortic valve insufficiency. Pulmonic Valve The pulmonic valve is not well visualized. Great Vessels Normal sized aortic root. Pericardium/Pleural No pericardial effusion. MMode/2D Measurements & Calculations LVIDd: 4.1 cm IVSd: 1.2 cm LVOT diam: 2.0 cm LVIDs: 1.9 cm LVPWd: 1.2 cm LVOT area: 3.0 cm2 RVDd: 2.9 cm FS: 52.8 % Ao root diam: 2.8 cm LAV(MOD-sp2): 16.8 ml LVAd ap4: 19.0 cm2 LVLd ap4: 6.0 cm EDV(MOD-sp4): 49.2 ml EDV(sp4-el): 51.0 ml LVAs ap4: 9.4 cm2 LVLs ap4: 5.7 cm ESV(MOD-sp4): 13.9 ml ESV(sp4-el): 13.1 ml EF(MOD-sp4): 71.7 % EF(sp4-el): 74.2 % LVAd ap2: 17.8 cm2 SV(MOD-sp4): 35.2 ml SV(MOD-sp2): 29.7 ml LVLd ap2: 6.3 cm EDV(MOD-sp2): 43.7 ml EDV(sp2-el): 42.6 ml LVAs ap2: 9.0 cm2 LVLs ap2: 5.6 cm ESV(MOD-sp2): 14.0 ml ESV(sp2-el): 12.1 ml EF(MOD-sp2): 67.9 % SV(sp4-el): 37.9 ml LA dimension(2D): 3.6 cm LA A4 area: 17.1 cm2 RA A4 area: 14.3 cm2 Doppler Measurements & Calculations MV E max quan: 85.4 cm/sec Lat Peak E' Quna: 8.9 cm/sec Med Peak E' Quan: 5.8 cm/sec MV A max quan: 66.9 cm/sec E/E' lat: 9.6 E/E' med: 14.7 MV E/A: 1.3 Ao V2 max: 215.8 cm/sec LV V1 max: 130.2 cm/sec SV(LVOT): 86.2 ml Ao max P.6 mmHg LV V1 max P.8 mmHg Ao V2 mean: 142.7 cm/sec LV V1 mean P.6 mmHg Ao mean P.2 mmHg LV V1 mean: 87.8 cm/sec Ao V2 VTI: 43.7 cm LV V1 VTI: 28.5 cm ANTIONE(I,D): 2.0 cm2 ANTIONE(V,D): 1.8 cm2 PA V2 max: 89.4 cm/sec TR max quan: 270.5 cm/sec TR max P.3 mmHg ECHO/Echo Complete Interpretation Summary Left ventricular systolic function is normal. The estimated ejection fraction is 65 %. There is mild mitral annular calcification. Extension of the mitral annular calcification onto the base of the posterior mi tral valve leaflet. Mild (1+) mitral valve insufficiency. Trivial tricuspid valve insufficiency. Mild aortic stenosis. Trivial aortic valve insufficiency. Right ventricular systolic pressure estimated to be 32 mmHg. Diastolic function is indeterminate. Ordering Physician: Toy Quinn Referring Physician: Nitin Tilley Performed By: Alissa Quiroga RDCS
== END | disposition home or self-care (01) ==
PROVIDERS: PCP Internal Medicine; Visit Provider Internal Medicine Cardiovascular Disease
DX: I48.91 Unspecified atrial fibrillation (principal); I97.89 Other postprocedural complications and disorders of the circulatory system, not elsewhere classified; I25.10 Atherosclerotic heart disease of native coronary artery without angina pectoris; I35.0 Nonrheumatic aortic (valve) stenosis; I10 Essential (primary) hypertension; E78.00 Pure hypercholesterolemia, unspecified; Z95.1 Presence of aortocoronary bypass graft; Z86.711 Personal history of pulmonary embolism
CPT/HCPCS: 93306

== ENCOUNTER 2021-11-25 12:07 | Outpatient (RCR) | payer MEDICARE, SELFPAY ==
[2021-11-25 13:40] LABS: International Normalized Ratio 2.8
== END 2021-11-25 18:00 | disposition home or self-care (01) ==
LOC: LAB 12:07
PROVIDERS: PCP Internal Medicine; Referring Provider Nurse Practitioner Family; Visit Provider Nurse Practitioner Family
DX: I97.89 Other postprocedural complications and disorders of the circulatory system, not elsewhere classified (principal); Z79.01 Long term (current) use of anticoagulants; I48.91 Unspecified atrial fibrillation; D68.51 Activated protein C resistance; Z86.711 Personal history of pulmonary embolism; I63.9 Cerebral infarction, unspecified
CPT/HCPCS: 36415; 85610

== ENCOUNTER → 2021-12-15 | Outpatient (CLI) | payer MEDICARE, SELFPAY ==
--- NOTE | 2021-12-15 11:40 | RAD_ITS ---
STUDY: X-RAY CHEST REASON FOR EXAM: Female, 81 years old. Very frequent cough, SOB, afebrile TECHNIQUE: PA and lateral views of the chest. COMPARISON: 07/30/2020 FINDINGS: Status post median sternotomy. The lungs are clear and expanded. There is no demonstrated pleural abnormality. Normal size heart. Large hiatal hernia. Normal visualized pulmonary arteries. Normal visualized aortic arch and descending thoracic aorta. Normal visualized thoracic spine. Normal visualized ribs, clavicles, and shoulders. There is no demonstrated abnormality of the visualized soft tissue structures of the upper abdomen. RAD/Chest PA and Lateral IMPRESSION: No active disease. Electronically Signed: Connor Flowers MD at 16:51 EDT ,
[2021-12-15 12:31] LABS: Hematocrit 38.4 % (37-47); Hemoglobin 12.8 g/dL (12.0-15.0); Mean Corp Hgb Conc 33.3 g/dL (32-36); Mean Corpuscular Hgb 28.4 pg (27.0-32.0); Mean Corpuscular Volume 85.3 fL (81-99); Mean Platelet Vol. 9.4 fl (6.2-12.0); Platelet Count 258 K/mm3 (150-450); RBC Distribution Width CV 13.3 % (11.6-14.6); RBC Distribution Width SD 41.4 fl (35.1-43.9)
[2021-12-15 13:02] LABS: Anion Gap 7 (5-15); BNP,B-Type NATRIURETIC PEPTIDE 214.7 pg/mL (0-100); BUN 19 mg/dL (7-18); BUN/Creat Ratio 20.5 RATIO (10-20); Calcium,Total 9.3 mg/dL (8.5-10.1); Chloride 105 mmol/L (98-107); Creatinine, Serum 0.93 mg/dL (0.55-1.02); EST Glomerular Filtration Rate 62 mL/min (>60); Est Glom Filt Rate - Afr Amer 75 mL/min (>60); Glucose 89 mg/dL (74-106); Potassium 4.5 mmol/L (3.5-5.1); Sodium Level 141 mmol/L (136-145)
== END | disposition home or self-care (01) ==
LOC: LAB 11:21
PROVIDERS: PCP Internal Medicine; Visit Provider Nurse Practitioner Gerontology
DX: R06.02 Shortness of breath (principal); R05.9 Cough, unspecified
CPT/HCPCS: 36415; 71046; 80048; 83880; 85027

== ENCOUNTER → 2021-12-23 | Outpatient (CLI) | payer MEDICARE, SELFPAY ==
[2021-12-23 10:46] LABS: Anion Gap 7 (5-15); BUN 17 mg/dL (7-18); BUN/Creat Ratio 18.1 RATIO (10-20); Calcium,Total 9.1 mg/dL (8.5-10.1); Chloride 101 mmol/L (98-107); Creatinine, Serum 0.94 mg/dL (0.55-1.02); EST Glomerular Filtration Rate 61 mL/min (>60); Est Glom Filt Rate - Afr Amer 74 mL/min (>60); Glucose 105 mg/dL (74-106); Potassium 3.2 mmol/L (3.5-5.1); Sodium Level 138 mmol/L (136-145)
== END | disposition home or self-care (01) ==
LOC: LAB 09:37
PROVIDERS: PCP Internal Medicine; Referring Provider Nurse Practitioner Gerontology; Visit Provider Nurse Practitioner Gerontology
DX: R06.02 Shortness of breath (principal)
CPT/HCPCS: 36415; 80048

== ENCOUNTER → 2022-02-16 | Outpatient (CLI) | payer MEDICARE, SELFPAY ==
--- NOTE | 2022-02-16 15:30 | RAD_ITS ---
STUDY: X-RAY CHEST REASON FOR EXAM: Female, 81 years old. COVID 2 weeks ago(neg now), Cough, SOB TECHNIQUE: PA and lateral views of the chest. COMPARISON: 12/15/2021 FINDINGS: Status post median sternotomy. There is hyperinflation of the lungs consistent with chronic obstructive lung disease (COPD). There is no demonstrated pleural abnormality. Normal size heart. Large hiatal hernia. Normal visualized pulmonary arteries. Normal visualized aortic arch and descending thoracic aorta. Normal visualized thoracic spine. Normal visualized ribs, clavicles, and shoulders. There is no demonstrated abnormality of the visualized soft tissue structures of the upper abdomen. RAD/Chest PA and Lateral IMPRESSION: Emphysema without pneumonia or atelectasis. Electronically Signed: Connor Flowers MD at 18:15 EDT ,
[2022-02-16 16:11] LABS: Hematocrit 40.3 % (37-47); Hemoglobin 13.4 g/dL (12.0-15.0); Mean Corp Hgb Conc 33.3 g/dL (32-36); Mean Corpuscular Volume 87.2 fL (81-99); Mean Platelet Vol. 9.5 fl (6.2-12.0); Platelet Count 277 K/mm3 (150-450); RBC Distribution Width CV 13.2 % (11.6-14.6); RBC Distribution Width SD 42.1 fl (35.1-43.9); Red Blood Count 4.62 M/mm3 (4.2-5.4); White Blood Count 6.1 K/mm3 (4.4-11.0)
[2022-02-16 16:35] LABS: BNP,B-Type NATRIURETIC PEPTIDE 175.4 pg/mL (0-100)
[2022-02-16 17:02] LABS: Anion Gap 5 (5-15); BUN 22 mg/dL (7-18); BUN/Creat Ratio 23.7 RATIO (10-20); Calcium,Total 9.3 mg/dL (8.5-10.1); Chloride 106 mmol/L (98-107); Creatinine, Serum 0.93 mg/dL (0.55-1.02); EST Glomerular Filtration Rate 62 mL/min (>60); Est Glom Filt Rate - Afr Amer 75 mL/min (>60); Glucose 159 mg/dL (74-106); Potassium 3.9 mmol/L (3.5-5.1); Sodium Level 138 mmol/L (136-145)
== END | disposition home or self-care (01) ==
PROVIDERS: PCP Internal Medicine; Referring Provider Nurse Practitioner Gerontology; Visit Provider Nurse Practitioner Gerontology
DX: R05.8 Other specified cough (principal); R60.0 Localized edema; R06.02 Shortness of breath; Z86.16 Personal history of COVID-19
CPT/HCPCS: 36415; 71046; 80048; 83880; 85027

== ENCOUNTER 2022-03-27 09:00 | Outpatient (RCR) | payer MEDICARE, SELFPAY ==
[2022-03-27 11:03] LABS: AST(SGOT) 18 U/L (15-37); Alanine Aminotransfer ALT/SGPT 18 U/L (13-56); Albumin, Serum 3.8 g/dL (3.2-5.0); Alkaline Phosphatase 53 U/L (45-117); Bilirubin, Direct 0.08 mg/dL (0.00-0.30); Cholesterol 167 mg/dL (200); Globulin 3.8 g/dL (2.2-4.2); High Density Lipoprotein 59 mg/dL; Protein, Total 7.6 g/dL (6.4-8.2); Triglycerides 121 mg/dL; Very Low Density Lipoprotein 24 mg/dL (5-40)
[2022-03-27 11:13] LABS: Anion Gap 5 (5-15); BUN 20 mg/dL (7-18); BUN/Creat Ratio 25.8 RATIO (10-20); Calcium,Total 9.3 mg/dL (8.5-10.1); Chloride 105 mmol/L (98-107); Creatinine, Serum 0.78 mg/dL (0.55-1.02); EST Glomerular Filtration Rate 76 mL/min (>60); Est Glom Filt Rate - Afr Amer 92 mL/min (>60); Glucose 127 mg/dL (74-106); Potassium 4.4 mmol/L (3.5-5.1); Sodium Level 139 mmol/L (136-145)
== END 2022-03-27 18:00 | disposition home or self-care (01) ==
LOC: LAB 09:00
PROVIDERS: Internal Medicine Cardiovascular Disease; PCP Internal Medicine; Referring Provider Nurse Practitioner Family; Visit Provider Nurse Practitioner Family
DX: R06.02 Shortness of breath; E78.00 Pure hypercholesterolemia, unspecified
CPT/HCPCS: 36415; 80048; 80061; 80076

== ENCOUNTER 2022-05-08 14:04 | Outpatient (RCR) | payer MEDICARE, SELFPAY ==
[2022-05-08 15:25] LABS: International Normalized Ratio 2.7; Prothrombin Time (Protime)PT. 28.5 SECONDS (11.7-14.9)
[2022-05-08 15:28] LABS: Anion Gap 10 (5-15); BUN 31 mg/dL (7-18); BUN/Creat Ratio 30.1 RATIO (10-20); Calcium,Total 9.6 mg/dL (8.5-10.1); Chloride 103 mmol/L (98-107); Creatinine, Serum 1.03 mg/dL (0.55-1.02); EST Glomerular Filtration Rate 55 mL/min (>60); Est Glom Filt Rate - Afr Amer 66 mL/min (>60); Glucose 100 mg/dL (74-106); Magnesium 2.5 mg/dL (1.6-2.6); Potassium 4.2 mmol/L (3.5-5.1); Sodium Level 138 mmol/L (136-145)
[2022-05-08 16:04] LABS: Vitamin D,25 Hydroxy 18.9 ng/mL
== END 2022-05-16 23:59 ==
LOC: BIMLAB 14:04
PROVIDERS: PCP Internal Medicine; Referring Provider Nurse Practitioner Family; Visit Provider Nurse Practitioner Family
DX: I48.19 Other persistent atrial fibrillation; Z79.01 Long term (current) use of anticoagulants; R25.2 Cramp and spasm; E55.9 Vitamin D deficiency, unspecified
CPT/HCPCS: 36415; 80048; 82306; 83735; 85610

== ENCOUNTER 2022-05-11 10:17 | Emergency (ER) | payer MEDICARE, SELFPAY ==
[2022-05-11 10:18] VITALS: BP 123/65; PULSE 86; RESP 16; TEMP 36.4; O2SAT 98; BMI 25.4
--- NOTE | 2022-05-11 10:50 | RAD_ITS ---
STUDY: X-RAY - LEFT KNEE REASON FOR EXAM: Female, 81 years old. Pain, injury TECHNIQUE: 4 view(s) of the knee. COMPARISON: None. FINDINGS: Normal visualized distal femur. Normal visualized proximal tibia and fibula. Normal proximal tibiofibular articulation. Normal medial femorotibial compartment. Normal lateral femorotibial compartment. There is mild degenerative arthrosis of the patellofemoral articulation. Chondrocalcinosis. Moderate sized joint effusion. Vascular calcification. Surgical clips are seen overlying the medial aspect of the knee joint. Soft tissue swelling. RAD/Knee 4 or More Views IMPRESSION: Medial soft tissue swelling and joint effusion. Electronically Signed: Adilson Golden MD at 12:32 EST ,
--- NOTE | 2022-05-11 10:50 | VDLE_ITS ---
Reason For Study: Pain Procedure LEFT This is a venous duplex using B-mode, color GSV is normal. flow and spectral Doppler. CFV is compressible, spontaneous, phasic, Exam performed portable in ED. competent, and demonstrates normal A preliminary report was called and/or faxed augmentation. to ED. FV is compressible, spontaneous, phasic, competent and demonstrates normal augmentation. POP V is compressible, spontaneous, phasic, competent and demonstrates normal augmentation. T/P Trunk is compressible. PTV is compressible. LT PerV is compressible. Nonvascularized structure is noted in the left popliteal fossa that measures 0.97 x 2.36 x 4.08 cm. VL/Venous Duplex US, Unilateral Interpretation Summary There is no evidence of left lower extremity deep vein thrombosis. Left great s aphenous vein appears patent and compressible segmentally. Left popliteal fossa 0.97 x 2.36 x 4.08 cm nonvascular structure consistent with a Gregory's cyst. Clinical correlation would be appropr iate. Ordering Physician: Amada Conrad Referring Physician: Nitin Tilley Performed By: Rosemary Roque RVT
--- NOTE | 2022-05-11 10:52 | ED.VIS.LOWEX ---
HPI History of Present Illness Chief Complaint: Lower Extremity Injury Informant: patient and family Narrative Narrative: Patient is a 81-year-old female with extensive histories of DVT, factor V Leiden, postoperative atrial fibrillation, chronic Coumadin therapy, hypertension and COPD presenting with left knee pain as well as left lower leg swelling. She states she twisted her knee about 2 days ago. She has had worsening pain and developed worsening swelling yesterday. She has tried ice. She states the pain radiates down her leg. She is concerned that she might of developed a DVT. She did have an INR check on 05/08 which was therapeutic at 2.7. She denies associated numbness, shortness of breath or chest pain. No other complaints at this time. No other injuries reported. 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 Migraines Non-scarring hair loss Nonrheumatic aortic (valve) stenosis Palpitations Polysubstance dependence Postoperative atrial fibrillation Presence of IVC filter Presence of vena cava filter Pure hypercholesterolemia Seizure SOB (shortness of breath) Venous insufficiency Vitamin D deficiency Home Medications HANDICAP PLACARD #1 ea 08/26/20 [Rx Last Taken Unknown] polyethylene glycol 3350 17 gram/dose oral powder (Miralax) 17 g PO DAILY PRN constipation 09/17/20 [History Last Taken Unknown] metoprolol tartrate 25 mg tablet 25 mg PO BID #180 tabs 08/05/21 [Rx Last Taken Unknown] potassium chloride 10 mEq tablet,extended release(part/cryst) 20 meq PO DAILY #180 tabs 08/05/21 [Rx Last Taken Unknown] Compression Socks #1 ea 08/26/21 [Rx Last Taken Unknown] pravastatin 40 mg tablet 40 mg PO QHS #90 tabs 12/16/21 [Rx Last Taken Unknown] warfarin 3 mg tablet 3 mg PO DAILY dose changed to 3 mg every day #90 tabs 01/11/22 [Rx Last Taken Unknown] furosemide 20 mg tablet 40 mg PO .COMPLEX #180 tabs 03/20/22 [Rx Last Taken Unknown] cholecalciferol (vitamin D3) 1,250 mcg (50,000 unit) capsule 1,250 mcg PO QWEEK #14 caps 05/08/22 [Rx Last Taken Unknown] hydrocodone-acetaminophen 5-325mg 5mg-325mg 1 tab PO Q8H PRN pain 3 days #9 tabs 05/11/22 [Rx Last Taken Unknown] Allergy/AdvReac Type Severity Reaction Status Date / Time sumatriptan [From Imitrex] Allergy Severe Chest Verified 05/11/22 10:21 tightness sumatriptan succinate Allergy Severe Chest Verified 05/11/22 10:21 [From Imitrex] tightness Family History Brother Alcoholism Mother Bladder cancer Surgical History h/o gallbladder H/O laminectomy History of back surgery History of bilateral cataract extraction History of coronary artery bypass graft x 3 (~09/07/20) History of left heart catheterization (LHC) Hx of cholecystectomy Social History Smoking Status: Former smoker how long ago did patient quit smokin years ago alcohol intake: current alcohol intake frequency: holidays/special occasions only Alcohol type: beer substance use type: does not use caffeine: No what type of physical activity do you participate in: walking frequency: 3-4 times per week ROS ROS ED Constitutional Constitutional ED: Denies chills or fever(s) Cardiovascular Cardiovascular: Denies chest pain Respiratory/Chest Respiratory/Chest: Denies dyspnea Musculoskeletal Musculoskeletal: Reports other Details: left knee pain Integumentary Denies rash Neurologic Neurologic: Denies paresthesias or weakness Psychiatric Psychiatric: Denies anxiety Hematologic/Lymphatic Hematologic/Lymphatic: Reports easy bleeding and easy bruising EXAM Physical Exam Const Vital Signs: 05/11/22 10:18 Temperature 97.6 F L Temperature Source Temporal Pulse Rate 86 Respiratory Rate 16 Blood Pressure 123/65 H Blood Pressure Mean 84 Pulse Ox 98 Oxygen Delivery Method Room Air Positive well nourished and well developed General Appearance ED: well developed and NAD HEENT Reports moist mucous membranes Eyes PERRL Neck supple Resp normal respiratory effort and clear to auscultation bilaterally Cardio regular rate and regular rhythm GI non-tender and non-distended Extremity Extremity Narrative: Mild swelling and edema to the right knee. No obvious joint effusion. Decreased range of motion secondary to pain. Not able to stress test the knee as patient is not tolerating it. Asymmetric nonpitting edema of the left lower extremity compared to the right. No palpable cords. Compartments are soft. 2+ DP pulses. Neuro oriented x3, moves all extremities and no sensory deficits noted Psych mental status grossly normal Skin no wounds Rashes: no rashes MDM MDM MDM Narrative Medical decision making narrative: Patient is evaluated for left knee pain and swelling. She twisted her knee 2 days ago. She has a history of DVTs and is concerned she could have a clot. Her INR was therapeutic 2 days ago however I will recheck it today. It is therapeutic again at 2.4. She has good distal pulses. I do not think this is acute arterial insufficiency. Venous duplex is repeated and does not show any acute clot. There is a Gregory's cyst present. X-ray of the knee shows medial soft tissue swelling and joint effusion. This is interpreted independently by myself as well as radiology. Given that patient did have a twisting injury I suspect she either sprained her knee or possibly suffered meniscal/ligamental injury. She likely has increased swelling due to her Coumadin coagulopathy. Patient is placed in an [place] wrap. Counseled to use a cane as needed for stability and help with walking. Given that she cannot take NSAIDs and is not having pain control with Tylenol I will give her a short course of [place]. Discussed with her and her daughter the risk and benefits of opioid pain medication including increased risk of confusion, falls and constipation. Patient states she is tolerated these in the past. Will start taking MiraLAX as well to prevent/combat opioid-induced constipation. Patient is referred to orthopedics for outpatient follow-up. At this time I do not suspect a septic joint and given that she already has a coagulopathy I do not think aspiration of the joint would be particularly helpful at this time. Patient verbalizes agreement understand this. Lab Data Attestation: I reviewed the patient's lab results. Labs: Laboratory Results - last 24 hr 05/11/22 11:30 PT 25.5 H INR 2.4 Radiography Diagnostic Testing: Clinical Impression(s) from Imaging Studies Knee X-Ray 05/11/22 10:50 IMPRESSION: Medial soft tissue swelling and joint effusion. Electronically Signed: Adilson Golden MD at 12:32 EST , Venous Doppler Study 05/11/22 10:50 Interpretation Summary There is no evidence of left lower extremity deep vein thrombosis. Left great saphenous vein appears patent and compressible segmentally. Left popliteal fossa 0.97 x 2.36 x 4.08 cm nonvascular structure consistent with a Gregory's cyst. Clinical correlation would be appropriate. Ordering Physician: Amada Conrad Referring Physician: Nitin Tilley Performed By: Rosemary Roque RVT Discharge Plan Triage Chief Complaint: Lower Extremity Injury ED Provider: Amada Conrad Dx/Rx/DC Orders Clinical Impression: Effusion of left knee, Anticoagulant long-term use, Left knee sprain Instructions: ED Knee Effusion, ED Knee Sprain Prescriptions: New hydrocodone-acetaminophen 5-325 mg tablet 1 tab PO Q8H PRN (Reason: pain) 3 Days Qty: 9 0RF No Action (DME) HANDICAP PLACARD See Rx Instructions .Route .MEDSUPPLY Qty: 1 0RF Rx Instructions: As directed; good for 08/26/20 thru 08/26/25 polyethylene glycol 3350 [Miralax] 17 gram/dose powder 17 g PO DAILY PRN (Reason: constipation) (DME) Compression Socks 15-20 0 .Route .MEDSUPPLY Qty: 1 0RF Rx Instructions: As directed cholecalciferol (vitamin D3) 1,250 mcg (50,000 unit) capsule 1,250 mcg PO QWEEK Qty: 14 2RF metoprolol tartrate 25 mg tablet 25 mg PO BID Qty: 180 4RF potassium chloride 10 mEq tablet,ER particles/crystals 20 meq PO DAILY Qty: 180 3RF pravastatin 40 mg tablet 40 mg PO QHS Qty: 90 3RF warfarin 3 mg tablet 3 mg PO DAILY Qty: 90 3RF Hold Instructions: pt wants marlo while has COVID Protocol: Dose Management Condition: Sunday Dose/Route: 3 mg Instruction: 1 x 3 mg tablet Condition: Sunday Dose/Route: 3 mg Instruction: 1 x 3 mg tablet Condition: Sunday Dose/Route: 3 mg Instruction: 1 x 3 mg tablet Condition: Sunday Dose/Route: 3 mg Instruction: 1 x 3 mg tablet Condition: Dose/Route: 3 mg Instruction: 1 x 3 mg tablet Condition: Sunday Dose/Route: 3 mg Instruction: 1 x 3 mg tablet Condition: Sunday Dose/Route: 3 mg Instruction: 1 x 3 mg tablet Protocol Text: Adjustment Start Date: Sunday05/08/22 INR Value: 2.7 INR Date: 05/08/22 Recheck Date: 06/05/22 furosemide 20 mg tablet 40 mg PO .COMPLEX Qty: 180 3RF Rx Instructions: 40 mg orally daily, may need to take an extra pill as needed for SOB, edema, etc.; Primary Care Provider: Nitin Tilley Referrals: Nitin Tilley MD [Primary Care Provider] - Lonnie Torres MD [Med Staff - Active Staff] - As soon as possible Activity Restrictions/Additional Instructions: Your INR was 2.4 today. No signs of a blood clot. You have swelling in your knee. Wear the [place] wrap. Elevate and ice your knee is much as possible. You may use [id number] Voltaren gel to try to help with the pain. You been prescribed a [place]. This can increase your risk of falls and confusion so be careful when taking it. Is also causes constipation so please take either Colace or MiraLAX while on this medication. Disposition Disposition: Home, Self Care Discharge Date/Time: 05/11/22 13:19
[2022-05-11] MEDS: Acetaminophen 325 MG Tablet 650 MG PO (11:30)
[2022-05-11 11:45] LABS: International Normalized Ratio 2.4; Prothrombin Time (Protime)PT. 25.5 SECONDS (11.7-14.9)
== END 2022-05-11 13:19 | disposition home or self-care (01) ==
PROVIDERS: Emergency Provider Emergency Medicine; PCP Internal Medicine; Visit Provider Emergency Medicine
DX: S83.92XA Sprain of unspecified site of left knee, initial encounter (principal); J44.9 Chronic obstructive pulmonary disease, unspecified; X50.1XXA Overexertion from prolonged static or awkward postures, initial encounter; I25.10 Atherosclerotic heart disease of native coronary artery without angina pectoris; I10 Essential (primary) hypertension; E78.00 Pure hypercholesterolemia, unspecified; Z95.1 Presence of aortocoronary bypass graft; Z79.01 Long term (current) use of anticoagulants; Z79.899 Other long term (current) drug therapy; Z86.718 Personal history of other venous thrombosis and embolism; Z86.73 Personal history of transient ischemic attack (TIA), and cerebral infarction without residual deficits; Z87.891 Personal history of nicotine dependence
CPT/HCPCS: 73564; 85610; 93971; 99283; A4216

== ENCOUNTER → 2022-05-12 | Outpatient (CLI) | payer MEDICARE, SELFPAY ==
[2022-05-12 15:15] LABS: Pathologist Comment May follow
[2022-05-12 16:01] LABS: Synovial Fld Mononuclear WBC # 2.418 10^3/ul; Synovial Fld Mononuclear WBC % 11.4 %; Synovial Fld Polynuclear WBC % 88.6 %
[2022-05-12 16:17] LABS: RBC /Synovial Fluid 0.004 10^6/uL (0)
[2022-05-12 17:12] LABS: AUTO B FLUID DILUENT BKGD CT WBC <0.1 RBC <0.01 (W<.1,R<.01); Appearance /Synovial Fluid Cloudy (CLEAR); Color / Synovial Fluid Yellow (Pale Yellow); Lymph 2 %; Monocyte /Synovial Fluid 8 %; Neutrophil 90 % (0-25); Source / Synovial Fluid LEFT KNEE; Source- Body Fluid SYNOVIAL
[2022-05-12 17:13] LABS: CRYSTALS, BODY FLUID See PATH REV
[2022-05-15 13:27] LABS: Pathologist Review Reviewed
== END | disposition home or self-care (01) ==
LOC: LABSPEC 15:06
PROVIDERS: PCP Internal Medicine; Visit Provider Specialist
DX: M17.12 Unilateral primary osteoarthritis, left knee (principal); M25.462 Effusion, left knee
CPT/HCPCS: 87070; 87075; 87205; 89050; 89051; 89060

== ENCOUNTER 2022-05-24 11:38 | Outpatient (RCR) | payer MEDICARE, SELFPAY ==
[2022-05-24 12:29] LABS: Absolute Lymphocyte Count 1.65 X10^3/uL (0.83-4.51); Absolute Neutrophil Count 7.4 X10^3/uL (2.0-7.7); Basophil# 0.04 X10^3/uL; Basophil% 0.4 % (0-1); Eosinophil# 0.08 X10^3/uL; Eosinophils% 0.8 % (0-5); Hematocrit 39.5 % (37-47); Lymphocyte # 1.65 X10^3/ul (0.83-4.51); Lymphocyte % 16.8 % (19-41); Mean Corp Hgb Conc 32.9 g/dL (32-36); Mean Corpuscular Hgb 28.8 pg (27.0-32.0); Mean Corpuscular Volume 87.4 fL (81-99); Mean Platelet Vol. 9.4 fl (6.2-12.0); Monocyte# 0.56 X10^3/uL; Monocyte% 5.7 % (0-10); NRBC Flagged by Analyzer 0 % (0-5); Neutrophil # 7.37 X10^3/uL (2.7-7.7); Neutrophil % 75.3 % (47-70); Platelet Count 271 K/mm3 (150-450); RBC Distribution Width CV 13.2 % (11.6-14.6); RBC Distribution Width SD 42.2 fl (35.1-43.9); Red Blood Count 4.52 M/mm3 (4.2-5.4); White Blood Count 9.8 K/mm3 (4.4-11.0)
[2022-05-24 12:35] LABS: Prothrombin Time (Protime)PT. 30.8 SECONDS (11.7-14.9)
[2022-05-24 12:58] LABS: BNP,B-Type NATRIURETIC PEPTIDE 155.3 pg/mL (0-100)
[2022-05-24 13:04] LABS: Anion Gap 6 (5-15); BUN 17 mg/dL (7-18); BUN/Creat Ratio 20.5 RATIO (10-20); Calcium,Total 9.4 mg/dL (8.5-10.1); Chloride 108 mmol/L (98-107); Creatinine, Serum 0.83 mg/dL (0.55-1.02); EST Glomerular Filtration Rate 70 mL/min (>60); Est Glom Filt Rate - Afr Amer 85 mL/min (>60); Glucose 131 mg/dL (74-106); Potassium 3.8 mmol/L (3.5-5.1); Sodium Level 141 mmol/L (136-145)
== END 2022-06-13 23:59 ==
LOC: BIMLAB 11:38
PROVIDERS: Internal Medicine Cardiovascular Disease; PCP Internal Medicine; Referring Provider Nurse Practitioner Family; Visit Provider Nurse Practitioner Family
DX: I97.89 Other postprocedural complications and disorders of the circulatory system, not elsewhere classified (principal); I48.91 Unspecified atrial fibrillation; I63.9 Cerebral infarction, unspecified; D68.51 Activated protein C resistance; Z86.711 Personal history of pulmonary embolism; Z79.01 Long term (current) use of anticoagulants; R06.02 Shortness of breath
CPT/HCPCS: 36415; 80048; 83880; 85025; 85610

== ENCOUNTER → 2022-08-07 | Outpatient (CLI) | payer MEDICARE, SELFPAY ==
[2022-08-07 12:58] LABS: Anion Gap 4 (5-15); BUN 22 mg/dL (7-18); BUN/Creat Ratio 25.1 RATIO (10-20); Calcium,Total 9.4 mg/dL (8.5-10.1); Chloride 107 mmol/L (98-107); Creatinine, Serum 0.88 mg/dL (0.55-1.02); EST Glomerular Filtration Rate 66 mL/min (>60); Est Glom Filt Rate - Afr Amer 80 mL/min (>60); Glucose 97 mg/dL (74-106); Sodium Level 137 mmol/L (136-145)
== END | disposition home or self-care (01) ==
LOC: BIMLAB 11:27
PROVIDERS: PCP Internal Medicine; Visit Provider Internal Medicine
DX: I10 Essential (primary) hypertension (principal)
CPT/HCPCS: 36415; 80048

== ENCOUNTER 2022-11-10 11:21 | Outpatient (RCR) | payer MEDICARE, SELFPAY | END 2022-11-13 23:59 | LOC: BIMLAB 11:21 | PROVIDERS: PCP Internal Medicine; Referring Provider Nurse Practitioner Family; Visit Provider Nurse Practitioner Family | DX: I97.89 Other postprocedural complications and disorders of the circulatory system, not elsewhere classified (principal); I48.91 Unspecified atrial fibrillation; Z79.01 Long term (current) use of anticoagulants; R60.0 Localized edema; E78.00 Pure hypercholesterolemia, unspecified | CPT/HCPCS: 36415; 85610 ==

== ENCOUNTER → 2022-11-24 | Outpatient (CLI) | payer MEDICARE, SELFPAY ==
--- NOTE | 2022-11-24 11:34 | RAD_ITS ---
STUDY: X-RAY - UNILATERAL RIBS ( LEFT ) REASON FOR EXAM: Female, 82 years old. Left sided rib pain following a fall. TECHNIQUE: 2 view(s) of the ribs. COMPARISON: None. FINDINGS: Normal visualized ribs without a demonstrated fracture. Status post CABG. RAD/Ribs Unil 2V No CXR IMPRESSION: No fracture is seen. Electronically Signed: Adilson Golden MD at 12:13 EDT ,
== END | disposition home or self-care (01) ==
LOC: MTRAD 11:23
PROVIDERS: PCP Internal Medicine; Visit Provider Physician Assistant Surgical
DX: S20.212A Contusion of left front wall of thorax, initial encounter (principal); W19.XXXA Unspecified fall, initial encounter
CPT/HCPCS: 71100

== ENCOUNTER 2022-12-11 11:22 | Outpatient (RCR) | payer MEDICARE, SELFPAY ==
[2022-12-11 12:23] LABS: International Normalized Ratio 3.1; Prothrombin Time (Protime)PT. 32.2 SECONDS (11.7-14.9)
[2022-12-11 13:00] LABS: AST(SGOT) 19 U/L (15-37); Alanine Aminotransfer ALT/SGPT 19 U/L (13-56); Albumin, Serum 3.8 g/dL (3.2-5.0); Alkaline Phosphatase 77 U/L (45-117); Anion Gap 5 (5-15); BUN 29 mg/dL (7-18); BUN/Creat Ratio 29.6 RATIO (10-20); Bilirubin, Direct 0.12 mg/dL (0.00-0.30); Calcium,Total 9.3 mg/dL (8.5-10.1); Chloride 104 mmol/L (98-107); Cholesterol 171 mg/dL (200); Creatinine, Serum 0.98 mg/dL (0.55-1.02); EST Glomerular Filtration Rate 58 mL/min (>60); Est Glom Filt Rate - Afr Amer 70 mL/min (>60); Globulin 3.7 g/dL (2.2-4.2); Glucose 93 mg/dL (74-106); High Density Lipoprotein 54 mg/dL; Potassium 4.7 mmol/L (3.5-5.1); Protein, Total 7.5 g/dL (6.4-8.2); Sodium Level 136 mmol/L (136-145); Triglycerides 155 mg/dL; Very Low Density Lipoprotein 31 mg/dL (5-40)
== END 2022-12-14 23:59 ==
LOC: BIMLAB 11:22
PROVIDERS: PCP Internal Medicine; Referring Provider Nurse Practitioner Family; Visit Provider Nurse Practitioner Family
DX: I97.89 Other postprocedural complications and disorders of the circulatory system, not elsewhere classified (principal); I48.91 Unspecified atrial fibrillation; I63.9 Cerebral infarction, unspecified; D68.51 Activated protein C resistance; Z86.711 Personal history of pulmonary embolism; Z79.01 Long term (current) use of anticoagulants
CPT/HCPCS: 36415; 80048; 80061; 80076; 85610

== ENCOUNTER 2023-03-01 14:42 | Outpatient (RCR) | payer MEDICARE, SELFPAY ==
[2023-03-01 16:16] LABS: Mucous, Urine 0 SEEN /hpf (<or=2+); Red Blood Cells-Urine 0 SEEN /hpf (0-5); Squamous Epithelial Cells - UA 0 SEEN /hpf (5-10)
[2023-03-01 16:39] LABS: Absolute Lymphocyte Count 1.95 X10^3/uL (0.83-4.51); Absolute Neutrophil Count 4.1 X10^3/uL (2.0-7.7); Basophil# 0.06 X10^3/uL; Basophil% 0.9 % (0-1); Eosinophil# 0.11 X10^3/uL; Eosinophils% 1.6 % (0-5); Hematocrit 40.5 % (37-47); Hemoglobin 13.5 g/dL (12.0-15.0); Lymphocyte # 1.95 X10^3/ul (0.83-4.51); Lymphocyte % 29.1 % (19-41); Mean Corp Hgb Conc 33.3 g/dL (32-36); Mean Corpuscular Hgb 29.4 pg (27.0-32.0); Mean Corpuscular Volume 88.2 fL (81-99); Mean Platelet Vol. 9.9 fl (6.2-12.0); Monocyte# 0.47 X10^3/uL; NRBC Flagged by Analyzer 0 % (0-5); Neutrophil # 4.09 X10^3/uL (2.7-7.7); Platelet Count 264 K/mm3 (150-450); Red Blood Count 4.59 M/mm3 (4.2-5.4); White Blood Count 6.7 K/mm3 (4.4-11.0)
[2023-03-01 16:45] LABS: Color, Urine Yellow (Yellow); Glucose, Dipstick Normal (Normal); Ketone-Dipstick Negative (Negative); Leukocyte Esterase-Dipstick 500 /ul (Negative); Nitrite-Dipstick Positive (Negative); Occult Blood-Urine 10 /ul (Negative); Protein-Dipstick Negative (Negative); Specific Gravity, Urine 1.015 (1.002-1.030); Urine Bilirubin Dipstick Negative (Negative); Urine Clarity Clear (Clear); Urine Urobilinogen Normal (Normal)
[2023-03-01 16:50] LABS: International Normalized Ratio 2.3; Prothrombin Time (Protime)PT. 25.7 SECONDS (11.7-14.9)
[2023-03-01 17:01] LABS: Bacteria 2+ /hpf (None Seen); White Blood Cells 25-50 SEEN /hpf (0-5)
[2023-03-01 17:02] LABS: ALB/GLOB Ratio 1.3 RATIO (0.9-2.4); AST(SGOT) 16 U/L (15-37); Alanine Aminotransfer ALT/SGPT 17 U/L (13-56); Alkaline Phosphatase 55 U/L (45-117); Anion Gap 7 (5-15); BUN 22 mg/dL (7-18); BUN/Creat Ratio 25.6 RATIO (10-20); Calcium,Total 9.4 mg/dL (8.5-10.1); Chloride 105 mmol/L (98-107); Creatinine, Serum 0.86 mg/dL (0.55-1.02); EST Glomerular Filtration Rate 67 mL/min (>60); Est Glom Filt Rate - Afr Amer 82 mL/min (>60); Globulin 3.1 g/dL (2.2-4.2); Glucose 97 mg/dL (74-106); Potassium 4.4 mmol/L (3.5-5.1); Protein, Total 7.1 g/dL (6.4-8.2); Sodium Level 139 mmol/L (136-145); Thyroid Stim Hormone (TSH) 2.05 uIU/mL (0.358-3.74)
[2023-03-01 17:24] LABS: Hemoglobin A1c 5.7 % (3.8-5.6)
== END 2023-03-15 23:59 ==
LOC: BIMLAB 14:42
PROVIDERS: PCP Internal Medicine; Referring Provider Nurse Practitioner Family; Visit Provider Nurse Practitioner Family
DX: Z79.01 Long term (current) use of anticoagulants; I48.19 Other persistent atrial fibrillation; I10 Essential (primary) hypertension; R73.03 Prediabetes; R53.83 Other fatigue; R53.81 Other malaise; N39.0 Urinary tract infection, site not specified
CPT/HCPCS: 36415; 80053; 81001; 83036; 84439; 84443; 85025; 85610; 87086; 87088; 87186

== ENCOUNTER 2023-05-14 11:09 | Outpatient (RCR) | payer MEDICARE, SELFPAY ==
[2023-05-14 12:16] LABS: International Normalized Ratio 1.9; Prothrombin Time (Protime)PT. 22.2 SECONDS (11.7-14.9)
[2023-05-14 12:49] LABS: Anion Gap 5 (5-15); BUN 20 mg/dL (7-18); BUN/Creat Ratio 25.5 RATIO (10-20); Calcium,Total 9.4 mg/dL (8.5-10.1); Chloride 111 mmol/L (98-107); Creatinine, Serum 0.78 mg/dL (0.55-1.02); EST Glomerular Filtration Rate 75 mL/min (>60); Est Glom Filt Rate - Afr Amer 91 mL/min (>60); Glucose 112 mg/dL (74-106); Potassium 4.1 mmol/L (3.5-5.1); Sodium Level 140 mmol/L (136-145)
[2023-05-14 14:45] LABS: Hemoglobin A1c 5.7 % (3.8-5.6)
== END 2023-05-16 23:59 ==
LOC: BIMLAB 11:09
PROVIDERS: PCP Internal Medicine; Referring Provider Nurse Practitioner Family; Visit Provider Nurse Practitioner Family
DX: I48.19 Other persistent atrial fibrillation (principal); Z79.01 Long term (current) use of anticoagulants; R73.03 Prediabetes
CPT/HCPCS: 36415; 80048; 83036; 85610

== ENCOUNTER 2023-06-15 10:36 | Outpatient (RCR) | payer MEDICARE, SELFPAY ==
[2023-06-15 12:26] LABS: International Normalized Ratio 2.6
== END 2023-07-15 23:59 ==
LOC: BIMLAB 10:36
PROVIDERS: PCP Internal Medicine; Referring Provider Nurse Practitioner Family; Visit Provider Nurse Practitioner Family
DX: I48.19 Other persistent atrial fibrillation (principal); Z79.01 Long term (current) use of anticoagulants
CPT/HCPCS: 36415; 85610

== ENCOUNTER → 2023-06-18 | Outpatient (CLI) | payer MEDICARE, SELFPAY ==
--- NOTE | 2023-06-18 08:01 | ECHOD_ITS ---
Reason For Study: DYSPNEA Procedure This was a 2D Doppler, Color Flow transthoracic echocardiogram. Exam performed in department. Left Ventricle Normal LV size. Mild concentric left ventricular hypertrophy. The left ventricular ejection fraction is 70 %. Diastolic function is indeterminate. Right Ventricle Normal right ventricle. Atria The left and right atria are normal. Mitral Valve Mild (1+) mitral valve insufficiency. Tricuspid Valve Mild tricuspid valve insufficiency. Right ventricular systolic pressure estimated to be 38 mmHg. Aortic Valve Mild aortic stenosis. Mild (1+) aortic valve insufficiency. Pulmonic Valve The pulmonic valve is not well visualized. Great Vessels Normal sized aortic root. Pericardium/Pleural No pericardial effusion. MMode/2D Measurements & Calculations LVIDd: 4.2 cm IVSd: 1.2 cm LVOT diam: 2.0 cm LVIDs: 2.8 cm LVPWd: 1.1 cm LVOT area: 3.0 cm2 RVDd: 2.4 cm FS: 33.8 % Ao root diam: 2.7 cm LAV(MOD-bp): 35.2 ml LVAd ap4: 19.6 cm2 LAV(MOD-bp) Indexed: 21.9 ml/m2 LVLd ap4: 6.0 cm LAV(MOD-sp2): 29.0 ml EDV(MOD-sp4): 53.0 ml LAV(MOD-sp4): 41.9 ml EDV(sp4-el): 54.4 ml LVAs ap4: 11.9 cm2 LVLs ap4: 5.2 cm ESV(MOD-sp4): 24.1 ml ESV(sp4-el): 22.9 ml EF(MOD-sp4): 54.5 % EF(sp4-el): 57.9 % LVAd ap2: 20.8 cm2 SV(MOD-sp4): 28.9 ml SV(MOD-sp2): 40.2 ml LVLd ap2: 6.2 cm EDV(MOD-sp2): 58.8 ml EDV(sp2-el): 59.3 ml LVAs ap2: 10.3 cm2 LVLs ap2: 5.2 cm ESV(MOD-sp2): 18.6 ml ESV(sp2-el): 17.4 ml EF(MOD-sp2): 68.4 % SV(sp4-el): 31.5 ml Aortic Valve Planimetry: 2.1 cm2 LA A4 area: 15.2 cm2 LA dimension(2D): 2.8 cm RA A4 area: 10.6 cm2 TAPSE: 1.9 cm Time Measurements MV dec time: 0.19 sec Doppler Measurements & Calculations MV E max quan: 79.9 cm/sec Lat Peak E' Quan: 8.0 cm/sec Med Peak E' Quan: 7.8 cm/sec MV A max quan: 64.3 cm/sec E/E' lat: 10.0 E/E' med: 10.3 MV E/A: 1.2 MV V2 max: 100.7 cm/sec MV P1/2t max quan: 100.7 cm/sec Ao V2 max: 209.1 cm/sec MV max P.1 mmHg MV P1/2t: 57.6 msec Ao max P.5 mmHg MV V2 mean: 48.9 cm/sec Ao V2 mean: 146.8 cm/sec MV mean P.2 mmHg MV dec slope: 512.3 cm/sec2 Ao mean P.5 mmHg MV V2 VTI: 21.5 cm MVA(P1/2t): 3.8 cm2 Ao V2 VTI: 49.0 cm AV (velocity ratio): 0.72 MVA(VTI): 5.0 cm2 ANTIONE(I,D): 2.2 cm2 ANTIONE(V,D): 2.3 cm2 LV V1 max: 154.5 cm/sec SV(LVOT): 108.1 ml PA V2 max: 81.8 cm/sec LV V1 max P.7 mmHg PA V2 mean: 57.8 cm/sec LV V1 mean P.4 mmHg LV V1 mean: 107.9 cm/sec LV V1 VTI: 35.5 cm TR max quan: 288.0 cm/sec TR max P.2 mmHg ECHO/Echo Complete Interpretation Summary Mild concentric left ventricular hypertrophy. The left ventricular ejection fraction is 70 %. Diastolic function is indeterminate. Mild (1+) mitral valve insufficiency. Mild tricuspid valve insufficiency. Right ventricular systolic pressure estimated to be 38 mmHg. Mild aortic stenosis. Mild (1+) aortic valve insufficiency. Ordering Physician: Nitin Tilley Referring Physician: Nitin Tilley Performed By: Shirlene Chen, QUYNH, RVT
--- OUTSIDE RECORDS SUMMARY | 2023-06-18 08:24 | XMS RPT_ITS | CCD ---
Author Name Unknown Address [id number] [place] [address] Organization [facility] Care Team Providers Care Dairy Technologist Name Role Phone UNKNOWN, PCP D Unavailable Unavailable SRINATH NESBITT Unavailable Unavailable ALBA ALVARADO Unavailable Unavailable NARGIS FLOREZ Unavailable Unavailable Allergies Allergy Classification Reported Allergen(s) Allergy Type Date of Onset Reaction(s) Facility (1 source) pregabalin; Translations: [LYRICA] Drug Allergy [facility] (1 source) SUMAtriptan; Translations: [IMITREX] Drug Allergy [facility] Problems Active Problems Problem Classification Problem Date Documented Da te Episodic/Chronic Anxiety disorders (1 source) Anxiety disorder, unspecified; Translations: [ANXIETY DISORDER UNSPECI] Onset: 10-25-2016 Chronic Coagulation and hemorrhagic disorders (1 source) Activated protein C resistance; Translations: [ACTIVATED PROTEIN C RESI] Onset: 10-25-2016 Chronic Essential hypertension (1 source) Essential (primary) hypertension; Translations: [ESSENTIAL PRIMARY HYPERT] Onset: 10-25-2016 Chronic Mood disorders (3 sources) Major depressive disorder, recurrent severe without psychotic features; Translations: [Major depressive disorder, recurrent, unspecified] Onset: 10-25-2016 Chronic Other nervous system disorders (1 source) Other chronic pain; Translations: [OTHER CHRONIC PAIN] Onset: 10-25-2016 Chronic Peripheral and visceral atherosclerosis (1 source) Peripheral vascular disease, unspecified; Translations: [PERIPHERAL VASCULAR DISE] Onset: 10-25-2016 Chronic Past or Other Problems Problem Classification Problem Date Documented Da te Episodic/Chronic Fluid and electrolyte disorders (1 source) Hypo-osmolality and hyponatremia; Translations: [HYPO-OSMOLALITY AND HYPO] Onset: 10-25-2016 Episodic Phlebitis; thrombophlebitis and thromboembolism (1 source) Personal history of other venous thrombosis and embolism; Translations: [PERS HX OTH VENOUS THROM] Onset: 10-25-2016 Episodic Pulmonary heart disease (1 source) Personal history of pulmonary embolism; Translations: [PERSONAL HISTORY PULMONA] Onset: 10-25-2016 Episodic Spondylosis; intervertebral disc disorders; other back problems (1 source) Dorsalgia, unspecified; Translations: [DORSALGIA UNSPECIFIED] Onset: 10-25-2016 Episodic Urinary tract infections (1 source) Personal history of urinary (tract) infections; Translations: [PERS HX URINARY TRACT IN] Onset: 10-25-2016 Episodic Results Test Name Value Interpretation Reference Range Facil ity Encounters Encounter Date Encounter Type Care Provider Facility Start: 10-25-2016 End: 11-01-2016 Evaluation and management of inpatient PCP D UNKNOWN Facility:[facility] Procedures Date Procedure Procedure Detail Performing Clinician Start: 09-06-2020 Antibody screen Payers Date Payer Category Payer Policy ID Private Health Insurance [id number] Clinical Notes 09-01-2020 to 10-22-2020 Note Date & Type Note Facility 10-22-2020 Note [facility] 10-22-2020 Note [facility] 09-28-2020 Note [facility] 09-16-2020 Note [facility] 09-15-2020 Note [facility] 09[facility]15-2020 Note [facility] 09-14-2020 Note [facility] 09-13-2020 Note [facility] 09-13-2020 Note [facility] 09-12-2020 Note [facility] 09-12-2020 Note [facility] 09-11-2020 Note [facility] 09-11-2020 Note [facility] 09-11-2020 Note [facility] 09-10-2020 Note [facility] 09-10-2020 Note [facility] 09-10-2020 [facility] 09-10-2020 Note [facility] 09-09-2020 Note [facility] 09-09-2020 Note [facility] 09-08-2020 Note [facility] 09[facility]08-2020 Note [facility] 09-07-2020 Note [facility] 09-07-2020 Note [facility] 09-07-2020 Note [facility] 09-06-2020 Note [facility] 09[facility]06-2020 Note [facility] 09-05-2020 Note [facility] 09-04-2020 Note [facility] 09-03-2020 Note [facility] 09-02-2020 Note [facility] 09-02-2020 Note [facility] 09-01-2020 Note [facility] Summary Purpose Family History No Family History Records FoundNo Family History Records FoundNo Family History Records Found Advance Directives No Advanced Directives Records FoundNo Advanced Directives Records FoundNo Advanced Directives Records Found Additional Source Comments INFORMATION SOURCE (unrecogn ized section and content) DATE CREATED AUTHOR AUTHOR'S ORGANIZ ATION 05/09/2021 [facility] DATE CREATED AUTHOR AUTHOR'S ORGANIZ ATION 08/15/2021 [facility] FOR RECORDS PERTAINING TO PATIENTS WHO ARE OR HAVE BEEN ENROLLED IN A CHEMICAL DEPENDENCY/SUBSTANCEABUSE PROGRAM, SOME INFORMATION MAY BE OMITTED. This clinical summary was aggregated from multiple sources. Caution should be exercised in using it in the provision of clinical care. This summary normalizes information from multiple sources, and as a consequence, information in this document may materially change the coding, format and clinical context of patient data. In addition, data may be omitted in some cases. CLINICAL DECISIONS SHOULD BE BASED ON THE PRIMARY CLINICAL RECORDS. [employer] provides no warranty or guarantee of the accuracy or completeness of information in this document.
--- NOTE | 2023-06-18 09:06 | RAD_ITS ---
INDICATION: Shortness of breath EXAMINATION/TECHNIQUE: X-RAY - XR Chest 1 View COMPARISON: Prior study dated: 02/16/2022. FINDINGS: LINES/DEVICES: None. LUNGS: Mild stranding/scarring in the left lower lung. No new infiltrate is seen. No evidence of pleural effusions. MEDIASTINUM AND CARDIOVASCULAR STRUCTURES: Stable cardiomediastinal silhouette. Status post median sternotomy. BONES AND SOFT TISSUES: Large hiatal hernia. RAD/Chest PA and Lateral IMPRESSION: 1. No significant change. 2. Mild stranding/scarring in the left lower lung. 3. Large hiatal hernia. Electronically Signed: Jason Banda MD at 14:27 EST ,
== END | disposition home or self-care (01) ==
LOC: CVS 07:58
PROVIDERS: PCP Internal Medicine; Referring Provider Internal Medicine; Visit Provider Internal Medicine
DX: R06.02 Shortness of breath (principal); R06.2 Wheezing
CPT/HCPCS: 71046; 93306; 94060; 94726; 94729

== ENCOUNTER 2023-06-19 07:08 | Emergency (ER) | payer MEDICARE, SELFPAY ==
[2023-06-19 07:09] VITALS: BP 149/82; PULSE 68; RESP 16; TEMP 36.7; O2SAT 98
[2023-06-19 07:11] VITALS: BMI 31.4
--- NOTE | 2023-06-19 07:44 | VDUE_ITS ---
Reason For Study: Right arm pain Right Proximal Left Proximal Right jugular vein is spontaneous, widely Left subclavian vein is spontaneous, widely patent, phasic, with no intraluminal patent, phasic, with no intraluminal echogenicity noted. echogenicity noted. Right subclavian vein is spontaneous, widely patent, phasic, with no intraluminal echogenicity noted. Right Lower Arm Right radial vein is compressible. Right ulnar vein is compressible. Right Arm Right axillary vein is spontaneous, patent, phasic, competent, compressible and demonstrates augmentation. Right brachial vein is compressible. Right cephalic vein is compressible. Right basilic vein is compressible. Patient Safety Preliminary report given to Dr. Cid. VL/Venous Duplex US, Unilateral Interpretation Summary No evidence for acute deep venous thrombosis[right] upper extremity with patent and compressible cephalic and basilic veins. Normal flow patterns left subclavian vein Ordering Physician: Bhupinder Cid Referring Physician: Nitin Tilley Performed By: Rosemary Roque RVT ???
--- NOTE | 2023-06-19 07:45 | EX.ED.UPPERE ---
HPI History of Present Illness HPI Narrative: 82-year-old female past medical history of DVT in her leg, on warfarin, presents with 11 days of right wrist and forearm pain. She states that her symptoms began with her right distal radius area is swollen and painful. She is right-hand dominant. While that has improved, she now has pain traveling up towards her elbow and her forearm. It hurts when she moves her arm. She denies any chest pain or shortness of breath. She had her INR checked 4 days ago, and it was therapeutic at 2.6. She essentially presents for evaluation of her traveling forearm pain with concern for emboli, and wants an ultrasound. Chief Complaint: Upper Extremity Injury [facility] Medical History Anxiety Atherosclerotic heart disease of [place] coronary artery without angina pectoris Back problem Borderline type 2 diabetes mellitus CAD (coronary artery disease) Chronic back pain Chronic cough CVA (cerebral vascular accident) Depression DVT (deep venous thrombosis) Edema of right lower leg Essential hypertension Factor 5 Leiden mutation, heterozygous Flu vaccine need Gastroenteritis GERD (gastroesophageal reflux disease) Hiatal hernia History of GI bleed History of pneumonia History of pulmonary embolism Hyperglycemia Hyperlipidemia Insomnia Iron deficiency anemia Leg cramps 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 Malaise and fatigue Migraines Non-scarring hair loss Nonrheumatic aortic (valve) stenosis Palpitations Polysubstance dependence Postoperative atrial fibrillation Presence of IVC filter Presence of vena cava filter Pure hypercholesterolemia Seizure SOB (shortness of breath) Venous insufficiency Vitamin D deficiency Wheezing Home Medications polyethylene glycol 3350 17 gram/dose oral powder (Miralax) 17 g PO DAILY PRN constipation 09/17/20 [History Last Taken Unknown] Compression Socks #1 ea 10/23/22 [Rx Last Taken Unknown] Handicap Placard #1 ea 11/10/22 [Rx Last Taken Unknown] furosemide 20 mg tablet 20 mg PO DAILY PRN edema #90 tabs 11/13/22 [Rx Last Taken Unknown] metoprolol tartrate 25 mg tablet 25 mg PO BID #180 tabs 01/04/23 [Rx Last Taken Unknown] pravastatin 40 mg tablet 40 mg PO QHS #90 tabs 01/04/23 [Rx Last Taken Unknown] warfarin 3 mg tablet See Rx Instructions .Route .COMPLEX #90 tabs 02/12/23 [Rx Last Taken Unknown] warfarin 1 mg tablet 1 mg PO .COMPLEX 05/14/23 [History Last Taken Unknown] cholecalciferol (vitamin D3) 1,250 mcg (50,000 unit) capsule 1,250 mcg PO QWEEK #14 caps 06/15/23 [Rx Last Taken Unknown] spironolactone 25 mg tablet 25 mg PO DAILY PRN 06/15/23 [History Last Taken Unknown] albuterol sulfate 90 mcg/actuation aerosol inhaler 2 puff inhalation Q6H PRN shortness of breath or wheezing #8.5 grams 06/18/23 [Rx Last Taken Unknown] budesonide 160 mcg-glycopyr 9 mcg-formot 4.8 mcg/actuation HFA inhaler (Breztri Aerosphere) 2 inh inhalation QAM AND QPM #10.7 grams 06/18/23 [Rx Last Taken Unknown] Allergy/AdvReac Type Severity Reaction Status Date / Time sumatriptan [From Imitrex] Allergy Severe Chest Verified 06/19/23 07:08 tightness sumatriptan succinate Allergy Severe Chest Verified 06/19/23 07:08 [From Imitrex] tightness Family History Brother Alcoholism Mother Bladder cancer Father Heart disease Surgical History h/o gallbladder H/O laminectomy History of back surgery History of bilateral cataract extraction History of coronary artery bypass graft x 3 (~09/07/20) History of left heart catheterization (LHC) Hx of cholecystectomy Social History Smoking Status: Former smoker how long ago did patient quit smokin years ago alcohol intake: current alcohol intake frequency: holidays/special occasions only Alcohol type: beer substance use type: does not use caffeine: No what type of physical activity do you participate in: walking frequency: 3-4 times per week ROS ROS ED ROS Narrative Constitutional: No fever, no chills. HEENT: No sore throat. No neck pain. No loss of vision. No rhinorrhea. Cardiovascular: No chest pain. No palpitations. No pedal edema. Respiratory: No cough, no shortness of breath. Abdominal: No abdominal pain. No nausea. No vomiting. Genitourinary: No dysuria. No hematuria. Musculoskeletal: Right forearm pain. No arthralgias right wrist pain and swelling improved. Neurologic: No headaches. No dizziness. No lightheadedness. Skin: No rash. No change in color. Psychiatric: No depression. No anxiety. EXAM Physical Exam Narrative Exam Narrative: Afebrile. Vital signs noted. HEENT: Normocephalic. Atraumatic. PERRL, EOMI. Neck soft and supple. No point tenderness or step off. Cardiovascular: Regular rate and rhythm. No murmurs, rubs, or gallops appreciated. Respiratory: No tachypnea. Lungs clear to auscultation bilaterally. Gastrointestinal: Abdomen soft, nontender, with normoactive bowel sounds. No rebound or guarding. Neurological: Awake. Alert. Nonfocal, nonlateralizing. Skin: No rash. Normal color. No pallor. Musculoskeletal: No pedal edema. Full range of motion extremities. Palpable radial pulse, right. Able to oppose thumb. Mild tenderness to palpation over brachial radialis more in the proximal forearm. No exquisite tenderness over the radial head. Const Vital Signs: 06/19/23 07:09 Temperature 98.1 F Temperature Source Temporal Pulse Rate 68 Respiratory Rate 16 Blood Pressure 149/82 H Blood Pressure Mean 104 Pulse Ox 98 Oxygen Delivery Method Room Air MDM MDM MDM Narrative Medical decision making narrative: In the differential diagnosis is arthritis versus muscular forearm strain versus DVT. However, I have low suspicion for DVT as her INR was therapeutic a few days ago, and there is no circumferential swelling. I do not feel that she needs a repeat in her INR because it has been therapeutic, and her symptoms started well before it was checked 4 days ago. I will obtain x-rays of the forearm to rule out fracture/occult fracture. I had a discussion with the patient regarding utility of ultrasound,But she states she would be more comfortable and and obtaining an ultrasound because she is concerned about emboli because it feels like when she had a blood clot in her leg. X-ray of the right forearm in 2 views interpreted by myself independently shows no evidence of an acute fracture. I reviewed the radiology report which confirms my independent interpretation. They do comment on a possible old avulsion fracture distally. windows technical specialist reports there is no blood clot in the deep venous system of the right upper extremity. At this point in time, I feel she can be discharged to follow-up with her primary care provider. I do not feel narcotic pain medication is indicated. Return instructions to the emergency department were reviewed. Disposition is discharged home in stable condition. History & Record Review Additional record(s) reviewed:: Prior ED visit and Prior labs (INR 2.6 a few days ago.) Discharge Plan Triage Chief Complaint: Upper Extremity Injury ED Provider: Bhupinder Cid Dx/Rx/DC Orders Clinical Impression: Pain in right forearm Instructions: ED Pain, Acute, Uncertain Cause Prescriptions: No Action polyethylene glycol 3350 [Miralax] 17 gram/dose powder 17 g PO DAILY PRN (Reason: constipation) (DME) Handicap Placard See Rx Instructions .ROUTE .MEDSUPPLY Qty: 1 0RF Rx Instructions: As directed, length of time 3 years spironolactone 25 mg tablet 25 mg PO DAILY PRN Hold Instructions: Has viral illness and diarrhea right now (DME) Compression Socks 15-20 0 .Route .MEDSUPPLY Qty: 1 1RF Rx Instructions: As directed furosemide 20 mg tablet 20 mg PO DAILY PRN (Reason: edema) Qty: 90 3RF pravastatin 40 mg tablet 40 mg PO QHS Qty: 90 3RF metoprolol tartrate 25 mg tablet 25 mg PO BID Qty: 180 4RF warfarin 3 mg tablet See Rx Instructions .ROUTE .COMPLEX Qty: 90 3RF Hold Instructions: pt wants marlo while has COVID Protocol: Dose Management Condition: Sunday Dose/Route: 3 mg Instruction: 1 x 3 mg tablet Condition: Sunday Dose/Route: 4 mg Instruction: 1 x 1 mg tablet, 1 x 3 mg tablet Condition: Sunday Dose/Route: 3 mg Instruction: 1 x 3 mg tablet Condition: Sunday Dose/Route: 3 mg Instruction: 1 x 3 mg tablet Condition: Dose/Route: 3 mg Instruction: 1 x 3 mg tablet Condition: Sunday Dose/Route: 3 mg Instruction: 1 x 3 mg tablet Condition: Sunday Dose/Route: 3 mg Instruction: 1 x 3 mg tablet Protocol Text: Adjustment Start Date: Sunday06/15/23 INR Value: 2.6 INR Date: 06/15/23 Recheck Date: 07/13/23 Dose Instruction: take 1 tablet by mouth once daily Rx Instructions: take 1 tablet by mouth once daily warfarin 1 mg tablet 1 mg PO .COMPLEX Protocol: Dose Management Condition: Sunday Dose/Route: 3 mg Instruction: 1 x 3 mg tablet Condition: Sunday Dose/Route: 4 mg Instruction: 1 x 1 mg tablet, 1 x 3 mg tablet Condition: Sunday Dose/Route: 3 mg Instruction: 1 x 3 mg tablet Condition: Sunday Dose/Route: 3 mg Instruction: 1 x 3 mg tablet Condition: Dose/Route: 3 mg Instruction: 1 x 3 mg tablet Condition: Sunday Dose/Route: 3 mg Instruction: 1 x 3 mg tablet Condition: Sunday Dose/Route: 3 mg Instruction: 1 x 3 mg tablet Protocol Text: Adjustment Start Date: Sunday06/15/23 INR Value: 2.6 INR Date: 06/15/23 Recheck Date: 07/13/23 Rx Instructions: 1 mg orally as needed for dose changes; cholecalciferol (vitamin D3) 1,250 mcg (50,000 unit) capsule 1,250 mcg PO QWEEK Qty: 14 2RF Breztri Aerosphere 160-9-4.8 mcg/actuation HFA aerosol inhaler 2 inh inhalation QAM AND QPM Qty: 10.7 1RF albuterol sulfate 90 mcg/actuation HFA aerosol inhaler 2 puff inhalation Q6H PRN (Reason: shortness of breath or wheezing) Qty: 8.5 1RF Primary Care Provider: Nitin Tilley Referrals: Nitin Tilley MD [Primary Care Provider] - 3-5 Days if not improving Disposition Disposition: Home, Self Care Discharge Date/Time: 06/19/23 09:00
--- NOTE | 2023-06-19 08:11 | RAD_ITS ---
STUDY: X-RAY - RIGHT RADIUS AND ULNA REASON FOR EXAM: Female, 82 years old. Pain. TECHNIQUE: 2 views of the right forearm. COMPARISON: None. FINDINGS: There is no demonstrated soft tissue swelling. There is a well-defined ossific fragment located at the ulnocarpal joint, probably the sequelae of an old avulsion injury. Intact visualized radius. Intact visualized ulna. There is no demonstrated acute fracture. RAD/Forearm 2 Views IMPRESSION: Well-defined ossific fragment located at the ulnocarpal joint, probably the sequelae of an old avulsion injury. No demonstrated acute fracture. Electronically Signed: Jason Chen MD at 8:34 EST ,
[2023-06-19 08:58] VITALS: BP 161/63; PULSE 71; RESP 16; TEMP 36.7; O2SAT 96
--- OUTSIDE RECORDS SUMMARY | 2023-06-19 09:31 | XMS RPT_ITS | CCD ---
Author Name Unknown Address [id number] [place] [address] Organization [facility] Care Team Providers Care Automobile Assembly Supervisor Name Role Phone UNKNOWN, PCP D Unavailable Unavailable SRINATH NESBITT Unavailable Unavailable ALBA ALVARADO Unavailable Unavailable NARGIS FLOREZ Unavailable Unavailable Allergies Allergy Classification Reported Allergen(s) Allergy Type Date of Onset Reaction(s) Facility (1 source) pregabalin; Translations: [LYRICA] Drug Allergy [facility] Repository (1 source) SUMAtriptan; Translations: [IMITREX] Drug Allergy [facility] Repository Problems Active Problems Problem Classification Problem [...] and management of inpatient PCP D UNKNOWN Facility:[facility] Procedures Date Procedure Procedure Detail Performing Clinician Start: 09-06-2020 Antibody screen Payers Date Payer Category Payer Policy ID Private Health Insurance [id number] Clinical Notes 09-01-2020 to 10-22-2020 Note Date & Type Note Facility 10-22-[address] [facility] 10-22-[address] [facility] 09-28-[address] [facility] 09-16-[address] [facility] 09-15-[address] [facility] 09[facility]15-[address] [facility] 09-14-[address] [facility] 09-13-[address] [facility] 09-13-[address] [facility] 09-12-[address] [facility] 09-12-[address] [facility] 09-11-[address] [facility] 09[facility]11-[address] [facility] 09[facility]11-[address] [facility] 09-10-[address] [facility] 09[facility]10-[address] [facility] 09-10-[address] [facility] 09[facility]10-[address] [facility] 09-09-2020 [facility] 09[facility]09-2020 [facility] 09-08-2020 [facility] 09[facility]08-2020 [facility] 09-07-2020 [facility] 09-07-[address] [facility] 09-07-[address] [facility] 09-06-[address] [facility] 09-06-2020 [facility] 09-05-[address] [facility] 09-04-[address] [facility] 09-03-[address] [facility] 09-02-[address] [facility] 09-02-[address] [facility] 09-01-[address] [facility] Summary Purpose Family History No Family History Records FoundNo Family History Records FoundNo Family History Records Found Advance Directives No Advanced Directives Records FoundNo Advanced Directives Records FoundNo Advanced Directives Records Found Additional Source Comments INFORMATION SOURCE (unrecogn ized section and content) DATE CREATED AUTHOR AUTHOR'S ORGANIZ ATION 05/09/2021 [facility] DATE CREATED AUTHOR AUTHOR'S ORGANIZ ATION 08/15/[address] [facility] FOR RECORDS PERTAINING TO PATIENTS [...] BE BASED ON THE PRIMARY CLINICAL RECORDS. [employer] provides no warranty or guarantee of the accuracy or completeness of information in this document.
== END 2023-06-19 09:00 | disposition home or self-care (01) ==
LOC: ED 08:50
PROVIDERS: Emergency Provider Emergency Medicine; PCP Internal Medicine; Visit Provider Emergency Medicine
DX: M79.631 Pain in right forearm (principal); I25.10 Atherosclerotic heart disease of native coronary artery without angina pectoris; I10 Essential (primary) hypertension; Z79.01 Long term (current) use of anticoagulants; Z79.899 Other long term (current) drug therapy; Z86.73 Personal history of transient ischemic attack (TIA), and cerebral infarction without residual deficits; Z86.718 Personal history of other venous thrombosis and embolism; Z87.891 Personal history of nicotine dependence
CPT/HCPCS: 73090; 93971; 99282

== ENCOUNTER 2023-10-01 10:14 | Outpatient (RCR) | payer MEDICARE, SELFPAY ==
[2023-10-01 12:12] LABS: Absolute Lymphocyte Count 1.35 X10^3/uL (0.83-4.51); Absolute Neutrophil Count 5.7 X10^3/uL (2.0-7.7); Basophil# 0.06 X10^3/uL; Basophil% 0.8 % (0-1); Eosinophil# 0.11 X10^3/uL; Eosinophils% 1.4 % (0-5); Hematocrit 40.3 % (37-47); Hemoglobin 13.1 g/dL (12.0-15.0); Lymphocyte # 1.35 X10^3/ul (0.83-4.51); Lymphocyte % 17.5 % (19-41); Mean Corp Hgb Conc 32.5 g/dL (32-36); Mean Corpuscular Volume 86.1 fL (81-99); Mean Platelet Vol. 9.9 fl (6.2-12.0); Monocyte# 0.48 X10^3/uL; Monocyte% 6.2 % (0-10); NRBC Flagged by Analyzer 0 % (0-5); Neutrophil # 5.65 X10^3/uL (2.7-7.7); Neutrophil % 73.5 % (47-70); Platelet Count 281 K/mm3 (150-450); RBC Distribution Width CV 13.2 % (11.6-14.6); RBC Distribution Width SD 41.3 fl (35.1-43.9); Red Blood Count 4.68 M/mm3 (4.2-5.4); White Blood Count 7.7 K/mm3 (4.4-11.0)
[2023-10-01 12:20] LABS: International Normalized Ratio 1.5; Prothrombin Time (Protime)PT. 17.7 SECONDS (11.7-14.9)
[2023-10-01 12:49] LABS: AST(SGOT) 18 U/L (15-37); Alanine Aminotransfer ALT/SGPT 16 U/L (13-56); Albumin, Serum 3.7 g/dL (3.2-5.0); Alkaline Phosphatase 61 U/L (45-117); Anion Gap 5 (5-15); BUN 20 mg/dL (7-18); BUN/Creat Ratio 25.6 RATIO (10-20); Calcium,Total 9.5 mg/dL (8.5-10.1); Chloride 107 mmol/L (98-107); Cholesterol 217 mg/dL (200); Creatinine, Serum 0.78 mg/dL (0.55-1.02); EST Glomerular Filtration Rate 75 mL/min (>60); Est Glom Filt Rate - Afr Amer 91 mL/min (>60); Globulin 3.7 g/dL (2.2-4.2); Glucose 104 mg/dL (74-106); High Density Lipoprotein 61 mg/dL; Potassium 4.3 mmol/L (3.5-5.1); Protein, Total 7.4 g/dL (6.4-8.2); Sodium Level 137 mmol/L (136-145); Triglycerides 116 mg/dL; Very Low Density Lipoprotein 23 mg/dL (5-40)
== END 2023-10-14 23:59 ==
LOC: BIMLAB 10:14
PROVIDERS: PCP Internal Medicine; Referring Provider Nurse Practitioner Family; Visit Provider Nurse Practitioner Family
DX: I48.19 Other persistent atrial fibrillation (principal); Z79.01 Long term (current) use of anticoagulants; E78.00 Pure hypercholesterolemia, unspecified; I10 Essential (primary) hypertension
CPT/HCPCS: 36415; 80053; 80061; 82248; 85025; 85610

== ENCOUNTER 2023-12-21 09:52 | Emergency (ER) | payer MEDICARE, SELFPAY ==
[2023-12-21 09:53] VITALS: BP 188/72; PULSE 71; RESP 16; TEMP 36.4; O2SAT 99; BMI 24.5
--- NOTE | 2023-12-21 10:23 | EX.ED.DYSGE1 ---
HPI History of Present Illness Chief Complaint: Lower Extremity Injury Narrative Narrative: 83-year-old female, past medical history of CVA, seizure, on warfarin presents with pain and swelling of her left hand, and over her left knee that began yesterday. She denies any injury. She is right-hand dominant. No fevers or chills, no chest pain. She states that her left hand started hurting her a week or 2 ago. She was having difficulty even peeling an apple and was trying to do a one-handed. She has been on the couch recently trying to rest her left knee as well. She denies falling or any injury but has noticed swelling at the base of her left hand along the fifth metacarpal and carpal bones, and noticed left knee swelling. It is painful for her to flex and extend her left knee. She denies any change in color, redness to either joint. She states this feels nothing like blood clot pain and it is localized to the left hand, and left knee. 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 Venous insufficiency Chronic cough Factor 5 Leiden mutation, heterozygous Seizure CVA (cerebral vascular accident) Postoperative atrial fibrillation Atherosclerotic heart disease of [place] coronary artery without angina pectoris CAD (coronary artery disease) Nonrheumatic aortic (valve) stenosis Pure hypercholesterolemia SOB (shortness of breath) Edema of right lower leg History of pulmonary embolism Essential hypertension Depression History of pneumonia Presence of vena cava filter Back problem Migraines Iron deficiency anemia DVT (deep venous thrombosis) Insomnia Polysubstance dependence Hiatal hernia Chronic back pain Hyperglycemia GERD (gastroesophageal reflux disease) Anxiety History of GI bleed Presence of IVC filter Home Medications ?Medication ?Instructions ?Recorded ?Last Taken ?Type polyethylene glycol 3350 17 17 g PO DAILY PRN constipation 09/17/20 Unknown History gram/dose oral powder (Miralax) Compression Socks #1 ea 10/23/22 Unknown Rx Handicap Placard #1 ea 11/10/22 Unknown Rx furosemide 20 mg tablet 20 mg PO DAILY PRN edema #90 tabs 11/13/22 Unknown Rx metoprolol tartrate 25 mg tablet 25 mg PO BID #180 tabs 01/04/23 Unknown Rx warfarin 3 mg tablet See Rx Instructions .Route 02/12/23 Unknown Rx .COMPLEX #90 tabs warfarin 1 mg tablet 1 mg PO .COMPLEX 05/14/23 Unknown History cholecalciferol (vitamin D3) 1,250 1,250 mcg PO QWEEK #14 caps 06/15/23 Unknown Rx mcg (50,000 unit) capsule spironolactone 25 mg tablet 25 mg PO DAILY PRN 06/15/23 Unknown History albuterol sulfate 2.5 mg/3 mL 2.5 mg (3 mL) inhalation Q4-6H PRN 10/01/23 Unknown Rx (0.083 %) solution for nebulization shortness of breath or wheezing #90 mL fluticasone fur. 100 mcg-umeclid 1 inh inhalation DAILY #60 ea 10/01/23 Unknown Rx 62.5 mcg-vilant 25 mcg inhalat.powder (Trelegy Ellipta) nebulizer accessories #1 ea 10/01/23 Unknown Rx ezetimibe 10 mg tablet 10 mg PO DAILY #60 tabs 10/02/23 Unknown Rx tramadol 50 mg tablet 50 mg PO Q6H PRN pain 3 days #12 12/21/23 Unknown Rx tabs Allergy/AdvReac Type Severity Reaction Status Date / Time sumatriptan (From Imitrex) Allergy Severe Chest Verified 12/21/23 10:05 tightness sumatriptan succinate (From Allergy Severe Chest Verified 12/21/23 10:05 Imitrex) tightness Family History Brother Alcoholism Mother Bladder cancer Father Heart disease Surgical History History of coronary artery bypass graft x 3 (~09/07/20) History of left heart catheterization (LHC) History of bilateral cataract extraction Hx of cholecystectomy History of back surgery h/o gallbladder H/O laminectomy Social History Smoking Status: Former smoker how long ago did patient quit smokin years ago alcohol intake: current alcohol intake frequency: holidays/special occasions only Alcohol type: beer substance use type: does not use caffeine: No what type of physical activity do you participate in: walking frequency: 3-4 times per week ROS ROS ED ROS Narrative Review of systems positive for left hand swelling along fifth metacarpal, and left knee pain and swelling, no erythema, no fevers or chills, no chest pain or shortness of breath. EXAM Physical Exam Narrative Exam Narrative: Afebrile. Vital signs noted. Regular rate and rhythm. Lungs are clear to auscultation bilaterally. Abdomen soft nontender with normoactive bowel sounds. Mild tenderness palpation along fifth proximal metacarpal and carpal bones of the left hand. Palpable radial pulse. Full range of motion left wrist. Abduction and adduction fingers left hand intact. Able to oppose thumb. Inspection of the left knee reveals no evidence of erythema, flexion extension mechanism intact. Minimal diffuse swelling, no crepitance. Neuro vas intact distally with palpable dorsalis pedis pulse. EHL intact, left. Const Vital Signs: 12/21/23 09:53 Temperature 97.6 F L Temperature Source Temporal Pulse Rate 71 Respiratory Rate 16 Blood Pressure 188/72 H Blood Pressure Mean 110 Pulse Ox 99 Oxygen Delivery Method Room Air MDM MDM MDM Narrative Medical decision making narrative: Differential diagnosis includes but not limited to arthritis versus ligamentous tear versus left knee effusion. I have low suspicion for septic arthritis and the hand and knee based on her clinical examination. I do not feel that she requires ultrasound of the left lower extremity as she is on Coumadin and it is more localized arthralgia and swelling instead of circumferential swelling of the left lower extremity. I discussed with her analgesia. Although she is on warfarin, she requested ibuprofen, and is aware of the risks and benefits. She was administered ibuprofen 400 mg orally and x-rays were obtained of the left hand and left knee and interpreted by myself independently. On my independent interpretation, x-rays of the left hand show degenerative changes and arthritic changes. Additionally, on my independent interpretation of 4 views of the left knee, there are arthritic changes as well. I reviewed the radiology reports which confirm my independent interpretation. At this point in time, I feel that she can be discharged to follow-up with her primary care provider versus orthopedics. She states that she has seen orthopedics previously in the past. She was placed in [facility] bandages and written a prescription for tramadol. Return instructions to the emergency department were reviewed. Disposition is discharged home in stable condition. Radiography X-Ray: Read by ED Physician, Read by Radiologist and DJD Diagnostic Testing: Clinical Impression(s) from Imaging Studies Hand X-Ray 12/21/23 10:35 IMPRESSION: Degenerative joint disease of the hand, as described above. Electronically Signed: Adilson Golden MD at 11:16 EDT , Knee X-Ray 12/21/23 10:35 IMPRESSION: Degenerative arthrosis. Chondrocalcinosis of the medial and lateral menisci. Small joint effusion. Electronically Signed: Adilson Golden MD at 11:15 EDT , Discharge Plan Triage Chief Complaint: Lower Extremity Injury Other Complaint: Upper Extremity Injury ED Provider: Bhupinder Cid Dx/Rx/DC Orders Clinical Impression: Degenerative joint disease of hand, left, Effusion of knee joint, left, Knee pain, left, Arthralgia of left hand Instructions: ED Bandage Elastic Wrap, ED Arthralgia, ED Knee Effusion, ED Osteoarthritis Prescriptions: New tramadol 50 mg tablet 50 mg PO Q6H PRN (Reason: pain) 3 Days Qty: 12 0RF No Action polyethylene glycol 3350 [Miralax] 17 gram/dose powder 17 g PO DAILY PRN (Reason: constipation) (DME) Handicap Placard See Rx Instructions .ROUTE .MEDSUPPLY Qty: 1 0RF Rx Instructions: As directed, length of time 3 years spironolactone 25 mg tablet 25 mg PO DAILY PRN Trelegy Ellipta 100-62.5-25 mcg blister with device 1 inh inhalation DAILY Qty: 60 1RF albuterol sulfate 2.5 mg /3 mL (0.083 %) solution for nebulization 2.5 mg inhalation Q4-6H PRN (Reason: shortness of breath or wheezing) Qty: 90 1RF (DME) nebulizer accessories Misc See Rx Instructions .Route Qty: 1 3RF Rx Instructions: As directed (DME) Compression Socks 15-20 0 .Route .MEDSUPPLY Qty: 1 1RF Rx Instructions: As directed furosemide 20 mg tablet 20 mg PO DAILY PRN (Reason: edema) Qty: 90 3RF metoprolol tartrate 25 mg tablet 25 mg PO BID Qty: 180 4RF warfarin 3 mg tablet See Rx Instructions .ROUTE .COMPLEX Qty: 90 3RF Protocol: Dose Management Condition: Sunday Dose/Route: 3 mg Instruction: 1 x 3 mg tablet Condition: Sunday Dose/Route: 4 mg Instruction: 1 x 1 mg tablet, 1 x 3 mg tablet Condition: Sunday Dose/Route: 4 mg Instruction: 1 x 1 mg tablet, 1 x 3 mg tablet Condition: Sunday Dose/Route: 3 mg Instruction: 1 x 3 mg tablet Condition: Dose/Route: 3 mg Instruction: 1 x 3 mg tablet Condition: Sunday Dose/Route: 3 mg Instruction: 1 x 3 mg tablet Condition: Sunday Dose/Route: 3 mg Instruction: 1 x 3 mg tablet Protocol Text: Adjustment Start Date: Sunday10/02/23 INR Value: 1.5 INR Date: 10/01/23 Recheck Date: 10/09/23 Dose Instruction: take 1 tablet by mouth once daily Rx Instructions: take 1 tablet by mouth once daily warfarin 1 mg tablet 1 mg PO .COMPLEX Protocol: Dose Management Condition: Sunday Dose/Route: 3 mg Instruction: 1 x 3 mg tablet Condition: Sunday Dose/Route: 4 mg Instruction: 1 x 1 mg tablet, 1 x 3 mg tablet Condition: Sunday Dose/Route: 4 mg Instruction: 1 x 1 mg tablet, 1 x 3 mg tablet Condition: Sunday Dose/Route: 3 mg Instruction: 1 x 3 mg tablet Condition: Dose/Route: 3 mg Instruction: 1 x 3 mg tablet Condition: Sunday Dose/Route: 3 mg Instruction: 1 x 3 mg tablet Condition: Sunday Dose/Route: 3 mg Instruction: 1 x 3 mg tablet Protocol Text: Adjustment Start Date: Sunday10/02/23 INR Value: 1.5 INR Date: 10/01/23 Recheck Date: 10/09/23 Rx Instructions: 1 mg orally as needed for dose changes; cholecalciferol (vitamin D3) 1,250 mcg (50,000 unit) capsule 1,250 mcg PO QWEEK Qty: 14 2RF ezetimibe 10 mg tablet 10 mg PO DAILY Qty: 60 1RF Primary Care Provider: Nitin Tilley Referrals: Nitin Tilley MD [Primary Care Provider] - 3-5 Days if not improving Print Language: Bulgarian Disposition Disposition: Home, Self Care
[2023-12-21] MEDS: Ibuprofen 200 MG Tablet 400 MG PO (10:29)
--- NOTE | 2023-12-21 10:35 | RAD_ITS ---
STUDY: X-RAY - LEFT KNEE REASON FOR EXAM: Female, 83 years old. Pain, swelling following the fall. TECHNIQUE: 4 view(s) of the knee. COMPARISON: None. FINDINGS: Normal visualized distal femur. Normal visualized proximal tibia and fibula. Normal proximal tibiofibular articulation. Normal medial femorotibial compartment. There is mild degenerative arthrosis of the lateral femorotibial compartment. There is mild degenerative arthrosis of the patellofemoral articulation. Chondrocalcinosis of the medial and lateral menisci. Small joint effusion. RAD/Knee 4 or More Views IMPRESSION: Degenerative arthrosis. Chondrocalcinosis of the medial and lateral menisci. Small joint effusion. Electronically Signed: Adilson Golden MD at 11:15 EDT ,
--- NOTE | 2023-12-21 10:35 | RAD_ITS ---
STUDY: X-RAY - LEFT HAND REASON FOR EXAM: Female, 83 years old. pain, swelling TECHNIQUE: 3 view(s) of the hand. COMPARISON: None. FINDINGS: Normal radiocarpal articulation. Normal distal radioulnar joint. Normal visualized carpal bones. Normal carpal articulations Normal carpometacarpal articulation of the thumb. Normal second through fifth carpometacarpal joints. Normal metacarpi. Normal metacarpophalangeal joint of the thumb. Normal interphalangeal joint of the thumb. Normal proximal and distal phalanges of the thumb. Normal metacarpophalangeal joints of the second through fifth fingers. There is diffuse articular joint space narrowing of the proximal and distal interphalangeal joints of the second through fifth fingers, but without erosive changes or periarticular soft tissue swelling. Normal phalanges of the second through fifth fingers. Soft tissue swelling. RAD/Hand Min 3 Views IMPRESSION: Degenerative joint disease of the hand, as described above. Electronically Signed: Adilson Golden MD at 11:16 EDT ,
[2023-12-21 11:28] VITALS: BP 126/78; PULSE 64; RESP 18; TEMP 36.4; O2SAT 99
== END 2023-12-21 11:44 | disposition home or self-care (01) ==
PROVIDERS: Emergency Provider Emergency Medicine; PCP Internal Medicine; Visit Provider Emergency Medicine
DX: M25.462 Effusion, left knee (principal); J44.9 Chronic obstructive pulmonary disease, unspecified; M19.042 Primary osteoarthritis, left hand; I25.10 Atherosclerotic heart disease of native coronary artery without angina pectoris; E78.00 Pure hypercholesterolemia, unspecified; I10 Essential (primary) hypertension; Z79.51 Long term (current) use of inhaled steroids; Z79.899 Other long term (current) drug therapy; Z86.711 Personal history of pulmonary embolism; Z87.891 Personal history of nicotine dependence
CPT/HCPCS: 73130; 73564; 99283

== ENCOUNTER 2024-01-02 10:26 | Outpatient (RCR) | payer MEDICARE, SELFPAY ==
[2024-01-02 12:16] LABS: Absolute Lymphocyte Count 0.91 X10^3/uL (0.83-4.51); Absolute Neutrophil Count 7.9 X10^3/uL (2.0-7.7); Basophil# 0.02 X10^3/uL; Basophil% 0.2 % (0-1); Eosinophil# 0.01 X10^3/uL; Eosinophils% 0.1 % (0-5); Hematocrit 35.8 % (37-47); Hemoglobin 11.8 g/dL (12.0-15.0); Lymphocyte # 0.91 X10^3/ul (0.83-4.51); Lymphocyte % 9.4 % (19-41); Mean Corpuscular Hgb 28.2 pg (27.0-32.0); Mean Corpuscular Volume 85.4 fL (81-99); Mean Platelet Vol. 9.2 fl (6.2-12.0); Monocyte# 0.64 X10^3/uL; Monocyte% 6.6 % (0-10); NRBC Flagged by Analyzer 0 % (0-5); Neutrophil # 7.92 X10^3/uL (2.7-7.7); Neutrophil % 82.4 % (47-70); Platelet Count 392 K/mm3 (150-450); RBC Distribution Width CV 13.1 % (11.6-14.6); RBC Distribution Width SD 40.1 fl (35.1-43.9); Red Blood Count 4.19 M/mm3 (4.2-5.4); White Blood Count 9.6 K/mm3 (4.4-11.0)
[2024-01-02 12:26] LABS: Anion Gap 7 (5-15); BUN 21 mg/dL (7-18); BUN/Creat Ratio 24.8 RATIO (10-20); Calcium,Total 9.7 mg/dL (8.5-10.1); Chloride 104 mmol/L (98-107); Creatinine, Serum 0.85 mg/dL (0.55-1.02); EST Glomerular Filtration Rate 68 mL/min (>60); Est Glom Filt Rate - Afr Amer 83 mL/min (>60); Glucose 136 mg/dL (74-106); Potassium 4.4 mmol/L (3.5-5.1); Sodium Level 135 mmol/L (136-145)
[2024-01-02 12:41] LABS: Hemoglobin A1c 5.9 % (3.8-5.6)
[2024-01-02 12:44] LABS: Prothrombin Time (Protime)PT. 30.6 SECONDS (11.7-14.9)
== END 2024-01-14 23:59 ==
LOC: BIMLAB 10:26
PROVIDERS: PCP Internal Medicine; Referring Provider Nurse Practitioner Family; Visit Provider Nurse Practitioner Family
DX: I48.19 Other persistent atrial fibrillation (principal); Z79.01 Long term (current) use of anticoagulants; I10 Essential (primary) hypertension; R73.03 Prediabetes
CPT/HCPCS: 36415; 80048; 83036; 85025; 85610

== ENCOUNTER 2024-11-10 09:30 | Outpatient (RCR) | payer MEDICARE, SELFPAY ==
[2024-11-04 17:09] LABS: Prothrombin Time (Protime)PT. 16.8 SECONDS (11.7-14.9)
[2024-11-04 17:23] LABS: AST(SGOT) 19 U/L (<=31); Alanine Aminotransfer ALT/SGPT 10 U/L (<=34); Albumin, Serum 4.1 g/dL (3.4-4.8); Alkaline Phosphatase 81 U/L (35-104); Bilirubin, Direct < 0.08 mg/dL (0.00-0.30); Cholesterol 222 mg/dL (<=200); Globulin 3.1 g/dL (2.2-4.2); Low Density Lipoprotein Calc. 122 mg/dL; Triglycerides 207 mg/dL; Very Low Density Lipoprotein 41 mg/dL (5-40); cholesterol:hdl ratio screen 3.76
[2024-11-10 12:38] LABS: Hematocrit 34.8 % (37-47); Hemoglobin 11.5 g/dL (12.0-15.0); Immature Granulocytes Count 0.040 X10^3/uL (0.0-0.0); Mean Corp Hgb Conc 33.0 g/dL (32-36); Mean Corpuscular Volume 86.4 fL (81-99); Mean Platelet Vol. 9.9 fl (6.2-12.0); NRBC Flagged by Analyzer 0 % (0-5); Platelet Count 286 K/mm3 (150-450); RBC Distribution Width CV 14.0 % (11.6-14.6); RBC Distribution Width SD 43.7 fl (35.1-43.9); Red Blood Count 4.03 M/mm3 (4.2-5.4); White Blood Count 7.2 K/mm3 (4.4-11.0)
[2024-11-10 12:47] LABS: Prothrombin Time (Protime)PT. 23.8 SECONDS (11.7-14.9)
[2024-11-10 13:43] LABS: Anion Gap 11 (5-15); BUN 21 mg/dL (4-19); BUN/Creat Ratio 28.4 RATIO (10-20); Calcium,Total 9.3 mg/dL (7.6-11.0); Carbon Dioxide 23.5 mmol/L (21.0-32.0); Chloride 104 mmol/L (98-108); Glucose 102 mg/dL (70-99); Potassium 4.3 mmol/L (3.3-5.1); Vitamin D,25 Hydroxy 48.3 ng/mL (30-100)
[2024-11-11 12:12] LABS: Ferritin 48 ng/mL (22-378); Iron 90 ug/dL (50-170); Iron Binding Capacity,Total 356 ug/dL (250-450); Iron Binding Capacity,Unsat 266 ug/dL (228-428)
== END 2024-11-13 23:59 ==
LOC: BIMLAB 09:30
PROVIDERS: PCP Internal Medicine; Referring Provider Physician Assistant Medical; Visit Provider Physician Assistant Medical
DX: D68.51 Activated protein C resistance (principal); Z79.01 Long term (current) use of anticoagulants; Z86.711 Personal history of pulmonary embolism; I63.9 Cerebral infarction, unspecified; I97.89 Other postprocedural complications and disorders of the circulatory system, not elsewhere classified; I48.91 Unspecified atrial fibrillation; I10 Essential (primary) hypertension; D64.9 Anemia, unspecified; E78.5 Hyperlipidemia, unspecified; I25.10 Atherosclerotic heart disease of native coronary artery without angina pectoris; E55.9 Vitamin D deficiency, unspecified; J44.9 Chronic obstructive pulmonary disease, unspecified; R73.03 Prediabetes
CPT/HCPCS: 36415; 80048; 80061; 80076; 82306; 82728; 83540; 83550; 84439; 84443; 85025; 85610

== ENCOUNTER 2025-01-20 09:49 | Outpatient (RCR) | payer MEDICARE, SELFPAY ==
[2025-01-20 11:37] LABS: Hematocrit 38.4 % (37-47); Hemoglobin 12.4 g/dL (12.0-15.0); Immature Granulocytes Count 0.080 X10^3/uL (0.0-0.0); Mean Corp Hgb Conc 32.3 g/dL (32-36); Mean Corpuscular Volume 84.2 fL (81-99); Mean Platelet Vol. 9.5 fl (6.2-12.0); NRBC Flagged by Analyzer 0 % (0-5); Platelet Count 340 K/mm3 (150-450); RBC Distribution Width CV 13.2 % (11.6-14.6); RBC Distribution Width SD 40.6 fl (35.1-43.9); Red Blood Count 4.56 M/mm3 (4.2-5.4); White Blood Count 8.3 K/mm3 (4.4-11.0)
[2025-01-20 11:42] LABS: Prothrombin Time (Protime)PT. 23.3 SECONDS (11.7-14.9)
[2025-01-20 12:07] LABS: Anion Gap 13 (5-15); BUN 16 mg/dL (4-19); BUN/Creat Ratio 26.2 RATIO (10-20); Calcium,Total 9.2 mg/dL (7.6-11.0); Carbon Dioxide 22.1 mmol/L (21.0-32.0); Chloride 104 mmol/L (98-108); Glucose 108 mg/dL (70-99); Potassium 4.1 mmol/L (3.3-5.1); Pro- Brain NATRIURETIC PEPTIDE 3494 pg/mL (<=1800)
== END 2025-01-20 18:00 | disposition home or self-care (01) ==
LOC: LAB 09:49
PROVIDERS: PCP Internal Medicine; Referring Provider Nurse Practitioner Family; Visit Provider Physician Assistant Medical
DX: D68.51 Activated protein C resistance (principal); R06.02 Shortness of breath; I25.10 Atherosclerotic heart disease of native coronary artery without angina pectoris
CPT/HCPCS: 36415; 80048; 83880; 85025; 85610

== ENCOUNTER 2025-03-02 11:19 | Outpatient (RCR) | payer MEDICARE, SELFPAY ==
[2025-03-02 12:49] LABS: Prothrombin Time (Protime)PT. 21.2 SECONDS (11.7-14.9)
[2025-03-02 14:23] LABS: Anion Gap 11 (5-15); BUN 21 mg/dL (4-19); BUN/Creat Ratio 28.9 RATIO (10-20); Calcium,Total 9.4 mg/dL (7.6-11.0); Carbon Dioxide 26.0 mmol/L (21.0-32.0); Chloride 104 mmol/L (98-108); Glucose 90 mg/dL (70-99); Potassium 4.4 mmol/L (3.3-5.1)
== END 2025-03-15 18:00 | disposition home or self-care (01) ==
LOC: LAB 11:19
PROVIDERS: Internal Medicine Cardiovascular Disease; PCP Internal Medicine; Referring Provider Nurse Practitioner Family; Visit Provider Physician Assistant Medical
DX: D68.51 Activated protein C resistance (principal); R06.02 Shortness of breath; I25.10 Atherosclerotic heart disease of native coronary artery without angina pectoris; I42.8 Other cardiomyopathies; I35.0 Nonrheumatic aortic (valve) stenosis; E78.00 Pure hypercholesterolemia, unspecified; R53.83 Other fatigue
CPT/HCPCS: 36415; 80048; 84443; 85610